=== PATIENT | male | born 1940 | race Caucasian/White ===

== ENCOUNTER → 2017-07-18 | Outpatient (CLI) | payer MEDICARE ==
[~2017-07-18] MED LIST: ASCO10006 PO; ASCO500T20 PO; ASP325T PO; ASPI-808 PO; ATOR40TA PO; CALC-760 PO; CARV25TA PO; CHOL100048 PO; FURO40TA4 PO; GLUC-153 PO; OLME40TA14 PO; OLME40TA18 PO; OMEG-109 PO; PHEN100C11 PO; POTA10CA43 PO; SIMV20TA3 PO; SPIR25TA3 PO
--- NOTE | 2017-07-18 16:17 | Diagnostic Imaging Report ---
INDICATION: Prostate cancer and pain. TECHNIQUE: After intravenous administration of 25.9 mCi technetium 99m MDP, whole body anterior and posterior scintigraphic images are obtained with spot images of the cervical and thoracic levels. FINDINGS: There is diffuse heterogeneous increased uptake throughout the axial skeleton and throughout the ribs as well as shoulder and pelvic girdles. Overall appearance is highly suggestive of widespread osseous metastatic disease. There is uptake in the kidneys with excretion into the urinary bladder. IMPRESSION: Diffuse heterogeneous uptake throughout the skeleton from cervical spine to pelvis is suggestive of widespread osseous metastatic disease. Consideration could be given to spinal MRI for assessment. Dictated by: Dictated on workstation # [id number]
== END ==
LOC: CARD 12:04
PROVIDERS: ATTEND Internal Medicine
DX: C61 Malignant neoplasm of prostate (principal)
CPT/HCPCS: 78306

== ENCOUNTER 2017-07-25 10:46 | Observation (INO) | payer MEDICARE ==
[~2017-07-25] VITALS: Ht 175.3 cm; Wt 103.4 kg
[~2017-07-25 10:46] MED LIST changes: -ASCO10006 PO; -ASPI-808 PO; -CHOL100048 PO; -OLME40TA18 PO; -OMEG-109 PO; -PHEN100C11 PO; -SIMV20TA3 PO; -SPIR25TA3 PO
--- OUTSIDE RECORDS SUMMARY | 2017-07-25 12:11 | XMS REPORT | Continuity of Care Document ---
Author Author [facility] Organization [facility] Address Unknown Phone Unavailable Allergies Active Description Code Type Severity Reaction Onset Reported/Identified Relationship to Patient Clinical Status Yes No Known Drug Allergies [id number] Drug Allergy Unknown N/A 10/26/2012 Medications There is no data. Problems Date Dx Coded Attending Type Code Diagnosis Diagnosed By 04/17/2014 VENECIA JOHNSON MD, Ot 429.3 04/17/2014 VENECIA JOHNSON MD Ot 443.9 04/17/2014 VENECIA JOHNSON MD Ot 496 04/17/2014 VENECIA JOHNSON MD Ot V72.63 04/17/2014 VENECIA JOHNSON MD Ot V72.83 03/24/2015 MEGA COURTNEY MD Ot 722.52 03/24/2015 MEGA COURTNEY MD Ot 724.03 12/25/2015 VENECIA JOHNSON MD Ot 429.3 CARDIOMEGALY 12/25/2015 VENECIA JOHNSON MD Ot 443.9 PERIPH VASCULAR DIS NOS 12/25/2015 VENECIA JOHNSON MD Ot 496 CHR AIRWAY OBSTRUCT NEC 12/25/2015 ALEX COSTELLO, VENECIA Ot V72.63 PRE-PROCEDURAL LABORATORY EXAMINATION 12/25/2015 VENECIA JOHNSON MD Ot V72.83 EXAM PRE-OPERATIVE NEC 12/28/2015 MEGA COURTNEY MD Ot G45.9 TRANSIENT CEREBRAL ISCHEMIC ATTACK, UNSP 12/28/2015 MEGA COURTNEY MD Ot G45.9 TRANSIENT CEREBRAL ISCHEMIC ATTACK, UNSP 01/19/2016 MEGA COURTNEY MD Ot G45.9 TRANSIENT CEREBRAL ISCHEMIC ATTACK, UNSP 01/26/2016 MEGA COURTNEY MD Ot G45.9 TRANSIENT CEREBRAL ISCHEMIC ATTACK, UNSP 07/10/2017 VENECIA JOHNSON MD Ot 429.3 CARDIOMEGALY 07/10/2017 VENECIA JOHNSON MD Ot 443.9 PERIPH VASCULAR DIS NOS 07/10/2017 VENECIA JOHNSON MD Ot 496 CHR AIRWAY OBSTRUCT NEC 07/10/2017 VENECIA JOHNSON MD Ot V72.63 PRE-PROCEDURAL LABORATORY EXAMINATION 07/10/2017 VENECIA JOHNSON MD Ot V72.83 EXAM PRE-OPERATIVE NEC 07/10/2017 MEGA COURTNEY MD Ot G45.9 TRANSIENT CEREBRAL ISCHEMIC ATTACK, UNSP 07/14/2017 VENECIA JOHNSON MD Ot 429.3 CARDIOMEGALY 07/14/2017 VENECIA JOHNSON MD Ot 443.9 PERIPH VASCULAR DIS NOS 07/14/2017 VENECIA JOHNSON MD Ot 496 CHR AIRWAY OBSTRUCT NEC 07/14/2017 VENECIA JOHNSON MD Ot V72.63 PRE-PROCEDURAL LABORATORY EXAMINATION 07/14/2017 VENECIA JOHNSON MD Ot V72.83 EXAM PRE-OPERATIVE NEC 07/14/2017 MEGA COURTNEY MD Ot G45.9 TRANSIENT CEREBRAL ISCHEMIC ATTACK, UNSP 07/19/2017 MEGA COURTNEY MD Ot C61 MALIGNANT NEOPLASM OF PROSTATE 07/20/2017 VENECIA JOHNSON MD Ot 429.3 CARDIOMEGALY 07/20/2017 VENECIA JOHNSON MD Ot 443.9 PERIPH VASCULAR DIS NOS 07/20/2017 VENECIA JOHNSON MD Ot 496 CHR AIRWAY OBSTRUCT NEC 07/20/2017 VENECIA JOHNSON MD Ot V72.63 PRE-PROCEDURAL LABORATORY EXAMINATION 07/20/2017 VENECIA JOHNSON MD Ot V72.83 EXAM PRE-OPERATIVE NEC 07/24/2017 MEGA COURTNEY MD Ot C61 MALIGNANT NEOPLASM OF PROSTATE Procedures There is no data. Results There is no data. Encounters ACCT No. Visit Date/Time Discharge Status Pt. Type Provider Facility Loc./Unit Complaint [id number] 07/18/2017 12:04:00 07/18/2017 23:59:59 CLS Outpatient MEGA COURTNEY MD [facility] CARD ELEVATED ALKFOS [id number] 12/25/2015 13:07:00 12/25/2015 23:59:59 CLS Outpatient MEGA COURTNEY MD [facility] RAD TIA [id number] 12/04/2013 11:57:00 12/04/2013 23:59:59 CLS Outpatient VENECIA JOHNSON MD [facility] RAD PERIPHERAL VASCULAR DISEASE,PREOP [id number] 10/25/2012 09:21:00 10/25/2012 14:00:00 DIS Outpatient [id number] 10/22/2012 13:14:00 10/22/2012 23:59:59 CLS Outpatient MEGA COURTNEY MD [facility] RAD [id number] 09/06/2012 08:04:00 09/06/2012 23:59:59 CLS Outpatient [id number] 08/15/2017 11:54:00 PEN Preadmit MEGA COURTNEY MD [facility] REHAB OLD RCVA W L LE WEAKNESS; DECONDITIONING AND FALLS
[2017-07-25 13:31] LABS: HEMOGLOBIN 12.9 G/DL (13.3-17.7); MEAN PLATELET VOLUME 9.7 FL (7.4-10.4); RED BLOOD COUNT 4.45 10^6/uL (4.35-5.85); RED CELL DISTRIBUTION WIDTH 15.3 % (10.0-14.5); WHITE BLOOD COUNT 5.2 10^3/uL (4.3-11.0)
[2017-07-25 13:51] LABS: ALANINE AMINOTRANSFERASE 11 U/L (0-55); ALBUMIN 3.9 GM/DL (3.2-4.5); ALKALINE PHOSPHATASE 577 U/L (40-136); BILIRUBIN,TOTAL 0.3 MG/DL (0.1-1.0); BUN/CREATININE RATIO 42; CALCIUM 9.1 MG/DL (8.5-10.1); CARBON DIOXIDE 23 MMOL/L (21-32); CHLORIDE 107 MMOL/L (98-107); CREATININE SERUM 0.95 MG/DL (0.60-1.30); GFR ESTIMATED > 60; GLUCOSE 117 MG/DL (70-105); POTASSIUM 5.1 MMOL/L (3.6-5.0); SODIUM 139 MMOL/L (135-145); TOTAL PROTEIN 6.5 GM/DL (6.4-8.2)
--- NOTE | 2017-07-25 13:57 | History & Physical-Hospitalist ---
History of Present Illness HPI/Chief Complaint Pt is a 76yoCm with a PMH of CAD s/p CABG, Prostate cancer with recent diagnosis of bony mets, and newly diagnosed seizure disorder who presented for direct admission due to worsening generalized weakness. He states that this weakness started about 1 month ago and has continued to worsen. He is normally very [place] despite his baseline left sided deficit from a previous CVA but has been having difficulty keeping up. He was actually seen in the [place] ER for this and was transferred to [place] for cardiac evaluation. He had a cardiac cath during that admission and was told his cath was clean and was discharged home. He has continued to worsen and developed seizures. He was started on Dilantin by his PC Dr Angel. His last seizure was Monday. He states it took him 1.5 hours to get dressed this morning prompting him to call his PCP. He was direct admitted for further evaluation and MRI brain was ordered. Source: patient Exam Limitations: no limitations Date Seen 07/25/17 Time Seen by Provider: 13:52 Attending Physician Eitan Angel MD PCP Eitan Angel MD Referring Physician Date of Admission July 25, 2017 at 12:06 Home Medications & Allergies Home Medications Reviewed patient Home Medication Reconciliation performed by pharmacy medication reconciliations dental technician instructor and/or nursing. Patients Allergies have been reviewed. Allergies Allergies Coded Allergies lisinopril (Verified Allergy, Severe, tongue swelling, 07/25/17) Past Tjhreqx-Jlbhis-Zbbxdx Hx Past Med/Social Hx: Reviewed Nursing Past Med/Soc Hx Patient Social History Marrital Status: Employed/Student: retired Smoking Status: Former Smoker (q in 2007) Type Used: Cigarettes Recent Foreign Travel: No Contact w/other who traveled: No Past Medical History Surgeries: Abdominal, CABG Cardiac: Cardiomyopathy, Coronary Artery Disease, Hypertension Cancer: Prostate, Bone Family History Heart Disease, Cancer Review of Systems Constitutional: No chills, No fever; weakness EENTM: No blurred vision, No double vision Respiratory: no symptoms reported Cardiovascular: no symptoms reported Gastrointestinal: no symptoms reported Genitourinary: no symptoms reported Musculoskeletal: muscle stiffness, muscle weakness Skin: no symptoms reported Psychiatric/Neurological: No Symptoms Reported Physical Exam Physical Exam Vital Signs Capillary Refill : General Appearance: No Apparent Distress, WD/WN Respiratory: Lungs Clear, No Respiratory Distress Cardiovascular: Regular Rate, Rhythm, No Murmur Gastrointestinal: Normal Bowel Sounds, Non Tender, Soft Extremity: Normal Capillary Refill, No Calf Tenderness, No Pedal Edema Neurologic/Psychiatric: Alert, Oriented x3, Other (bilateral extremity weakness L>R at baseline, no sensory deficit) Results Results/Procedures Labs Laboratory Tests 07/25/17 13:18 Patient resulted labs reviewed. Assessment/Plan Admission Diagnosis Generalized weakness Admission Status: Observation Diagnosis/Problems Diagnosis/Problems (1) Generalized weakness Status: Acute Assessment & Plan: New onset in last month PT/OT consulted MRI brain ordered- awaiting results Consider spine MRI (2) Metastasis to bone Status: Acute Assessment & Plan: Newly diagnosed on 07/18 History of prostate cancer- PSA ordered MRI brain ordered (3) CAD (coronary artery disease) Status: Chronic Assessment & Plan: s/p CABG in 2007 Recent cath done in [place] Will request records along with echo Qualifiers: Coronary Disease-Associated Artery/Lesion type: bypass graft [place] vs. transplanted heart: [place] heart Associated angina: without angina Qualified Codes: I25.810 - Atherosclerosis of coronary artery bypass graft(s) without angina pectoris (4) Seizure disorder Assessment & Plan: Check dilantin level, resume if normal LOUISE SMITH MD July 25, 2017 1:56 pm
--- NOTE | 2017-07-25 14:31 | Physical Therapy Evaluation ---
PT Evaluation-General Medical Diagnosis Admission Date July 25, 2017 at 12:06 Medical Diagnosis: left hemiparesis/focal seizures Onset Date: July 23, 2017 Therapy Diagnosis Therapy Diagnosis: generalized weakness/debility Height/Weight Height (Feet): 5 Height (Inches): 9.00 Weight (Pounds): 228 Weight (Ounces): 1.0 Precautions Precautions/Isolations: Standard Precautions Weight Bear Status Right Lower Extremity: Right Weight Bearing/Tolerated Left Lower Extremity: Left Weight Bearing/Tolerated Referral Physician: Anup Reason for Referral: Evaluation/Treatment Medical History Pertinent Medical History: CABG, CAD, CVA (2010), HTN, [place] Additional Medical History prostate cancer with recent diagnosis with mets to bone Current History patient has had progressive weakness x 1 month requiring use of assistive device. New onset of seizures which has increase weakness and patient has become unable to care for self Reviewed History: Yes Social History Home: Multilevel Current Living Status: Spouse Entry Into Home: Stairs With Railing PT Steps Into Home: 5 PT Steps Inside Home: 14 Prior/Core FIM Prior Level of Function Functional [place] Measure 0=Not Assessed/NA 4=Minimal Assistance 1=Total Assistance 5=Supervision or Setup 2=Maximal Assistance 6=Modified [place] 3=Moderate Assistance 7=Complete [place] Bed Mobility: 5 Transfers (B,C,W/C) (FIM): 5 Gait: 1 only able to ambulate short distances due to progressive weakness with left side more involved from previous CVA/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 PT Evaluation-Current Subjective Patient agrees to PT. He reports his left side is "giving him fits." Pain Numeric Pain Scale: 7 Location: Lower Location Body Site: Back Pain Description: Ache, Acute (from seizures per patient report) Objective Patient Orientation: Normal For Age Problem Solving: Fair ROM/Strength ROM Lower Extremities bilateral LE WNL Strength Lower Extremities right knee flexion/extension 4+/5; hip flexion 4+/5; DF/PF 4+/5 left knee flexion/extension 3-/5; hip flexion 2/5; DF/PF 2/5 Integumentary/Posture Integumentary refer to nursing notes Bowel Incontinence: No Bladder Incontinence: No Posture WFL Neuromuscular (Tone, Coordination, Reflexes) diminished coordination left LE/UE/sensation intact Sensory Vision: Functional Hearing: Functional Sensation Right Lower Extremit: Intact Sensation Left Lower Extremity: Intact Transfers Functional [place] Measure 0=Not Assessed/NA 4=Minimal Assistance 1=Total Assistance 5=Supervision or Setup 2=Maximal Assistance 6=Modified [place] 3=Moderate Assistance 7=Complete [place] Transfers (B, C, W/C) (FIM): 4 Scootin Rollin Supine to/from Sit: 4 Sit to/from Stand: 4 Gait Mode of Locomotion: Walk Anticipated Mode of Locomotion: Walk Gait (FIM): 1 Distance (FIM): 1=up to 49 ft Distance: 45' Gait Level of Assist: 3 Gait Persons Needed: 1 Gait Assistive Device: FWW Comments/Gait Description left LE lag with inconsistent foot clearance due to weakness/PT assistance for weight shifting to right to advance left LE Balance Sitting Static: Normal Sitting Dynamic: Normal Standing Static: Fair Standing Dynamic: Fair Assessment/Needs 76 y.o. male, will benefit from skilled PT to address functional strength and mobility to improve current LOF and to safely return to home with spouse at maximum LOF. Patient has significant left LE weakness and increase back pain due to seizures. Rehab Potential: Fair PT Light Bulb Tester Goals Light Bulb Tester Goals PT Correction Goals Time Frame: Aug 18, 2017 Transfers (B,C,W/C) (FIM): 5 Gait (FIM): 5 Gait distance (FIM): 3=150 ft Distance: 200' Gait Level of Assist: 5 Gait Assistive Device: FWW Stairs (FIM): 5 # of Steps: 14 Stairs Level Of Assist: 5 PT Plan Problem List Problem List: Activity Tolerance, Functional Strength, Balance, Gait, Bed Mobility Treatment/Plan Treatment Plan: Continue Plan of Care Treatment Plan: Bed Mobility, Education, Functional Activity Kati, Functional Strength, Group Therapy, Gait, Safety, Therapeutic Exercise, Transfers Treatment Duration: Aug 18, 2017 Frequency: At least 5 of 7 days/Wk (IRF) Estimated Hrs Per Day: 1.5 hours per day Patient and/or Family Agrees t: Yes Safety Risks/Education Patient Education: Gait Training Teaching Recipient: Patient Teaching Methods: Demonstration, Discussion Response to Teaching: Verbalize Understanding, Return Demonstration (with assistance) Discharge Recommendations Therapy D/C Recommendations: Acute Rehab Time/GCodes Time In: 1345 Time Out: 1415 Total Billed Treatment Time: 30 [facility] AND[facility] HORNER PT July 25, 2017 14:31
[2017-07-25] MEDS ORDERED: ANTACID SUSP 30 ML UDC (MYLANTA) PO PRN (14:45)
[2017-07-25] MEDS ORDERED: ONDANSETRON 4 MG/2 ML (SDV) Z0FRAN IV PRN (14:45)
[2017-07-25] MEDS ORDERED: ACETAMINOPHEN 500 MG TAB (TYLENOL) PO PRN (14:45)
[2017-07-25] MEDS ORDERED: MILK OF MAGNESIA 400 MG/5 ML 30 ML UDC PO PRN (14:45)
[2017-07-25] MEDS ORDERED: CATHETER FLUSH 10 ML SYR IV PRN (15:00)
[2017-07-25] MEDS ORDERED: GADOBUTROL 10 MMOL/10 ML (GADAVIST) VIAL IV ONE (15:00)
[2017-07-25] MEDS ORDERED: ACETAMINOPHEN 325 MG TABLET/CAPLET (TYLENOL) PO PRN (15:00)
--- NOTE | 2017-07-25 15:52 | Occupational Therapy Eval ---
OT Evaluation-General/PLF Medical Diagnosis Admission Date July 25, 2017 at 12:06 Medical Diagnosis: left hemiparesis/focal seizures Onset Date: July 23, 2017 Therapy Diagnosis Therapy Diagnosis: decreased self care skills Height/Weight Height (Feet): 5 Height (Inches): 9.00 Weight (Pounds): 228 Weight (Ounces): 1.0 Precautions Precautions/Isolations: Standard Precautions Referral Physician: Anup Medical History Pertinent Medical History: CABG, CAD, CVA (2010), HTN, [place] Additional Medical History prostate cancer with bony mets Current History Pt has had progressive weakness and onset of seizures Social History Home: Multilevel (bedroom is on 2nd level) Current Living Status: Spouse Entry Into Home: Stairs With Railing Steps Into Home: 5 Steps Inside Home: 14 ADL-Prior Level of Function ADL PLOF Comments Pt states he is normally able to complete basic self care skills, but recently has required increased time. States it took him 1.5 hrs to dress this morning. Ambulates only short distances. Has had frequent falls last 2 months. Uses 4WW outside. DME/Equipment: Shower Drive Self: Yes OT Current Status Subjective Pt sitting in chair, agrees to therapy. Pt reports 4/10 "muscle pain" in back. Mental Status/Objective Patient Orientation: Person, Place, Situation Current Glasses/Contacts: Yes Hearing Aids: No Dentures/Partials: Yes Hand Dominance: Left Upper Extremity ROM Right UE grossly WFL Left UE: Limited at shoulder secondary to prior CVA Upper Extremity Coordination Impaired left UE Upper Extremity Sensation Pt states he's had numbness in right hand for ~6 weeks. ADL-Treatment ADL-Current Pt participated in UE assessment while seated. Pt sit to stand with minimal assistance. Requires minimal assistance for transfers using FWW. Pt has difficulty reaching socks to doff/don. Pt states he has been able to feed himself without assistance. Education provided regarding role of OT and plan of care. Pt states understanding of education and is in agreement with plan. Pt sitting in chair with needs met and RN present after session. Functional [place] Measure 0=Not Assessed/NA 4=Minimal Assistance 1=Total Assistance 5=Supervision or Setup 2=Maximal Assistance 6=Modified [place] 3=Moderate Assistance 7=Complete IndependenceIRFPAI Quality Coding Scale 6 Independent with activity with or without an assistive device 5 Patient requires set up or clean up by helper. Patient completes activity by themselves 4 Supervision or touching assist (CGA). Barker provide cues , steadying assist 3 The helper provides less than half the effort to complete the activity 2 The helper provides more than half the effort to complete the activity 1 Dependent. The helper does all the effort to complete an activity 7 Patient refused to complete or attempt activity 9 The patient did not perform the activity before the current illness or injury 88 Not attempted due to Medical conditions or safety concerns Eating (FIM): 5 (by report) Toilet/Commode Transfer (FIM): 4 Education OT Patient Education: Rehab process Teaching Recipient: Patient Teaching Methods: Discussion Response to Teaching: Verbalize Understanding OT Short Term Goals Short Term Goals 1=Demonstrate adherence to instructed precautions during ADL tasks. 2=Patient will verbalize/demonstrate understanding of assistive devices/ modifications for ADL. 3=Patient will improve strength/tolerance for activity to enable patient to perform ADL's. OT Nursing Home Goals Silvering Applicator Goals Time Frame: Aug 15, 2017 Eating (FIM): 6 Grooming(FIM): 6 Upper Body Dressing(FIM): 6 Lower Body Dressing(FIM): 5 Toileting(FIM): 5 Toilet/Commode Transfer(FIM): 6 Additional Goals: 1-Demonstrate ADL Tasks, 2-Verbalize Understanding, 3- ImproveStrength/Kati 1=Demonstrate adherence to instructed precautions during ADL tasks. 2=Patient will verbalize/demonstrate understanding of assistive devices/ modifications for ADL. 3=Patient will improve strength/tolerance for activity to enable patient to perform ADL's. OT Education/Plan Problem List/Assessment Assessment: Decreased Activ Tolerance, Decreased UE Strength, Dependent Transfers, Impaired Coordination, Impaired Funct Balance, Impaired Self-Care Skills Pt to benefit from skilled OT intervention for ADL training, transfers, strengthening, and safety education to increase level of function and allow safe discharge plan. Discharge Recommendations Plan/Recommendations: Continue POC Treatment Plan/Plan of Care Treatment,Training & Education: Yes Patient would benefit from OT for education, treatment and training to promote independence in ADL's, mobility, safety and/or upper extremity function for ADL' s. Plan of Care: ADL Retraining, Functional Mobility, UE Funct Exercise/Act Treatment Duration: Aug 15, 2017 Frequency: 5 times per week Estimated Hrs Per Day: .25 hour per day Agreement: Yes Rehab Potential: Fair Time/GCodes Start Time: 15:21 Stop Time: 15:44 Total Time Billed (hr/min): 23 Billed Treatment Time 1 visit, DEREK(23minutes) MIGUEL CASTANO OT July 25, 2017 15:52
[2017-07-25 16:00] VITALS: BP 102/56
--- NOTE | 2017-07-25 16:08 | Diagnostic Imaging Report ---
PROCEDURE: MR imaging of the brain with and without contrast. TECHNIQUE: Multiplanar, multisequence MR imaging of the brain was performed with and without contrast. INDICATION: Seizures. COMPARISON: No prior MRI brain study is available for comparison. FINDINGS: The study is significantly compromised due to patient motion. Patient had difficulty holding still during the exam. The ventricles and sulci are prominent, consistent with the patient's age. No diffusion restriction is identified to suggest acute ischemia. There is T2 and FLAIR signal identified in the right frontal and parietal lobes in the middle cerebral artery territory with associated volume loss present, consistent with an old infarct. There is a large region of abnormal signal involving the high right posterior parietal lobe parafalcine location. This demonstrates increased T2 and FLAIR signal and measures approximately 3.8 cm AP x 2.9 cm transverse. Gallegos-white matter differentiation at this location is obscured. There appears to be significant cortical thickening present. There is a small region of enhancement noted along the superior aspect of this signal. No restricted diffusion is seen. The normal expected flow-voids within the carotid siphons are seen. No other regions of abnormal contrast enhancement are seen apart from a small probable venous angioma in the right centrum semiovale. Corpus callosum is unremarkable. The sella and parasellar structures are unremarkable. IMPRESSION: 1. 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 2. Mass-like signal abnormality identified in the high right posterior parietal lobe parafalcine location with minimal associated enhancement. 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 Minimal enhancement may suggest a low-grade tumor. Metastatic lesion is less likely. No other abnormalities are seen. No acute intracranial hemorrhage is detected. Dictated by: Dictated on workstation # [id number]
[2017-07-25] MEDS ORDERED: PHEN100C11 PO ×2 (16:59)
[2017-07-25] MEDS ORDERED: ASCO10006 PO (16:59)
[2017-07-25] MEDS ORDERED: SIMV20TA3 PO (16:59)
[2017-07-25] MEDS ORDERED: ASPI-808 PO (16:59)
[2017-07-25] MEDS ORDERED: CHOL100048 PO (16:59)
[2017-07-25] MEDS ORDERED: CARV25TA PO (16:59)
[2017-07-25] MEDS ORDERED: OLME40TA18 PO (16:59)
[2017-07-25] MEDS ORDERED: SPIR25TA3 PO (16:59)
[2017-07-25] MEDS ORDERED: OMEG-109 PO (16:59)
[2017-07-25 20:00] VITALS: BP 98/53
[2017-07-25] MEDS: CATHETER FLUSH 10 ML SYR IV SCH (20:45)
[2017-07-26] VITALS: BP 105/57
[2017-07-26 04:00] VITALS: BP 133/69
[2017-07-26] MEDS: CATHETER FLUSH 10 ML SYR IV SCH ×2 (06:03→14:31)
[2017-07-26] MEDS ORDERED: CARVEDILOL 12.5 MG (COREG) TABLET ONE (08:36)
[2017-07-26] MEDS ORDERED: IRBESARTAN 150 MG (AVAPRO) TAB ONE (08:37)
[2017-07-26] MEDS ORDERED: PHEN100C11 PO (08:41)
--- NOTE | 2017-07-26 08:50 | Discharge Summary-Hospitalist ---
Diagnosis/Chief Complaint Date of Admission July 25, 2017 at 12:06 Date of Discharge Admission Diagnosis Generalized weakness Discharge Diagnosis (1) Generalized weakness Status: Acute Assessment & Plan: New onset in last month PT/OT consulted MRI brain ordered- awaiting results Consider spine MRI (2) Metastasis to bone Status: Acute Assessment & Plan: Newly diagnosed on 07/18 History of prostate cancer- PSA ordered MRI brain ordered (3) CAD (coronary artery disease) Status: Chronic Assessment & Plan: s/p CABG in 2007 Recent cath done in [place] Will request records along with echo (4) Seizure disorder Assessment & Plan: Check dilantin level, resume if normal Discharge Summary Discharge Physical Exam Allergies: Coded Allergies: lisinopril (Verified Allergy, Severe, tongue swelling, 07/25/17) Vitals & I&Os Vital Signs Date Time Temp Pulse Resp B/P (MAP) Pulse Ox O2 Delivery O2 Flow Rate FiO2 07/26/17 04:00 98.7 76 18 133/69 (90) 95 Room Air General Appearance: Alert, Oriented X3, Cooperative, No Acute Distress Respiratory: Clear to Auscultation Cardiovascular: Regular Rate, Normal S1, Normal S2 Neuro: Normal Speech, Cranial Nerves 3-12 NL, Other (Left lower extremity hemiparesis no other focal findings noted) Hospital Course HPI/Chief Complaint Pt is a 76yoCm with a PMH of CAD s/p CABG, Prostate cancer with recent diagnosis of bony mets, and newly diagnosed seizure disorder who presented for direct admission due to worsening generalized weakness. He states that this weakness started about 1 month ago and has continued to worsen. [place] is [place] despite his baseline left sided deficit from a previous CVA but has been having difficulty keeping up. He was actually seen in the [place] ER for this and was transferred to [place] for cardiac evaluation. He had a cardiac cath during that admission and was told his cath was clean and was discharged home. He has continued to worsen and developed seizures. He was started on Dilantin by his PC Dr Courtney. His last seizure was Monday. He states it took him 1.5 hours to get dressed this morning prompting him to call his PCP. He was direct admitted for further evaluation and MRI brain was ordered. MRI of the brain revealed a 2.9 x 3.8 cm right posterior parietal tumor with features the radiologist felt were compatible with primary possibly not high- grade. His PSA returned at over 300 confirming that his highly positive bone scan is compatible with prostate cancer metastasis. He had no seizures noted in his Dilantin level was up to 12.8. Last focal seizure per the patient occurred on Monday. Left lower extremity remained weak with 3+ strength with no other focal neurologic findings being noted. We are in the process of obtaining transferred to [place] for neurosurgical consultation neurology consultation in regards to his focal seizure disorder and will likely need oncology as well as the patient otherwise it be a reasonable candidate for hormonal therapy for prostate cancer widely metastatic to bone. Labs (last 24 hrs) Laboratory Tests 07/25/17 13:18: White Blood Count 5.2, Red Blood Count 4.45, Hemoglobin 12.9L, Hematocrit 39L, Mean Corpuscular Volume 88, Mean Corpuscular Hemoglobin 29, Mean Corpuscular Hemoglobin Concent 33, Red Cell Distribution Width 15.3H, Platelet Count 193, Mean Platelet Volume 9.7, Sodium Level 139, Potassium Level 5.1H, Chloride Level 107, Carbon Dioxide Level 23, Anion Gap 9, Blood Urea Nitrogen 40H, Creatinine 0.95, Estimat Glomerular Filtration Rate > 60, BUN/Creatinine Ratio 42, Glucose Level 117H, Calcium Level 9.1, Total Bilirubin 0.3, Aspartate Amino Transf (AST/SGOT) 17, Alanine Aminotransferase (ALT/SGPT) 11, Alkaline Phosphatase 577H, Total Protein 6.5, Albumin 3.9, Prostate Specific Antigen 393.13H, Phenytoin (Dilantin) Level 12.2 Patient resulted labs reviewed. Discussion & Recommendations Discharge Planning: >30 minutes discharge planning Discharge Home Medications: Active Scripts Active Phenytoin Sodium Extended 100 Mg Capsule 300 Mg PO Q12HR 60 Days Reported Fish Oil 1,200 mg Softgel ([place]-3 Fatty Acids/Fish Oil) 1 Each Capsule 1,200 Mg PO DAILY Vitamin D (Cholecalciferol (Vitamin D3)) 1,000 Unit Capsule 1,000 Unit PO DAILY Simvastatin 20 Mg Tablet 10 Mg PO HS TAKES 1/2 OF A (20 MG) TABLET Phenytoin Sodium Extended 100 Mg Capsule 300 Mg PO HS TAKES 3 (100 MG) CAPSULES Spironolactone 25 Mg Tablet 25 Mg PO DAILY Olmesartan Medoxomil 40 Mg Tablet 40 Mg PO DAILY Carvedilol 25 Mg Tablet 25 Mg PO BID Phenytoin Sodium Extended 100 Mg Capsule 200 Mg PO DAILY TAKES 2 (100 MG) CAPSULES Vitamin C (Ascorbic Acid) 1,000 Mg Tablet 1,000 Mg PO BID Aspirin 325 Mg Tablet 325 Mg PO BID Instructions to patient/family Please see electronic discharge instructions given to patient. Clinical Quality Measures DVT/VTE Risk/Contraindication: Risk Factor Score Per Nursin RFS Level Per Nursing on Admit: 3=High Problem Qualifiers (1) CAD (coronary artery disease): Coronary Disease-Associated Artery/Lesion type: bypass graft [place] vs. transplanted heart: [place] heart Associated angina: without angina Qualified Codes: I25.810 - Atherosclerosis of coronary artery bypass graft(s) without angina pectoris MEGA COURTNEY MD July 26, 2017 08:50
[2017-07-26 08:58] VITALS: BP 101/51
[2017-07-26] MEDS ORDERED: CARVEDILOL 12.5 MG (COREG) TABLET PO SCH (09:00)
[2017-07-26] MEDS ORDERED: PHENYTOIN 100 MG (DILANTIN) CAP PO SCH (09:00)
[2017-07-26] MEDS ORDERED: IRBESARTAN 150 MG (AVAPRO) TAB PO SCH (09:00)
[2017-07-26 12:37] VITALS: BP 85/52
[2017-07-26] MEDS ORDERED: SIMvastatin 10 MG (ZOCOR) TAB PO SCH (21:00)
--- OUTSIDE RECORDS SUMMARY | 2017-07-27 12:33 | XMS REPORT | Continuity of Care Document ---
Author Author [facility] Organization [facility] Address Unknown Phone Unavailable Allergies Active Description Code Type Severity Reaction Onset Reported/Identified Relationship to Patient Clinical Status Yes No Known Drug Allergies [id number] Drug Allergy Unknown N/A 10/26/2012 Medications There [...] PERIPH VASCULAR DIS NOS 07/20/2017 VENECIA JOHNSON MD, Ot 496 CHR AIRWAY OBSTRUCT NEC 07/20/2017 VENECIA JOHNSON MD Ot V72.63 PRE-PROCEDURAL LABORATORY EXAMINATION 07/20/2017 VENECIA JOHNSON MD Ot V72.83 EXAM PRE-OPERATIVE NEC 07/24/2017 MEGA COURTNEY MD Ot C61 MALIGNANT NEOPLASM OF PROSTATE Procedures There is no data. Results Test Result Range Automated blood complete blood count (hemogram) panel - 07/25/17 13:18 Blood leukocytes automated count (number/volume) 5.2 10*3/uL 4.3-11.0 Blood erythrocytes automated count (number/volume) 4.45 10*6/uL 4.35-5.85 Venous blood hemoglobin measurement (mass/volume) 12.9 g/dL 13.3-17.7 Blood hematocrit (volume fraction) 39 % 40-54 Automated erythrocyte mean corpuscular volume 88 [foz_us] 80-99 Automated erythrocyte mean corpuscular hemoglobin (mass per erythrocyte) 29 pg 25-34 Automated erythrocyte mean corpuscular hemoglobin concentration measurement ( mass/volume) 33 g/dL 32-36 Automated erythrocyte distribution width ratio 15.3 % 10.0-14.5 Automated blood platelet count (count/volume) 193 10*3/uL 130-400 Automated blood platelet mean volume measurement 9.7 [foz_us] 7.4-10.4 Comprehensive metabolic panel - 07/25/17 13:18 Serum or plasma sodium measurement (moles/volume) 139 mmol/L 135-145 Serum or plasma potassium measurement (moles/volume) 5.1 mmol/L 3.6-5.0 Serum or plasma chloride measurement (moles/volume) 107 mmol/L 98-107 Carbon dioxide 23 mmol/L 21-32 Serum or plasma anion gap determination (moles/volume) 9 mmol/L 5-14 Serum or plasma urea nitrogen measurement (mass/volume) 40 mg/dL 7-18 Serum or plasma creatinine measurement (mass/volume) 0.95 mg/dL 0.60-1.30 Serum or plasma urea nitrogen/creatinine mass ratio 42 NRG Serum or plasma creatinine measurement with calculation of estimated glomerular filtration rate > NRG Serum or plasma glucose measurement (mass/volume) 117 mg/dL 70-105 Serum or plasma calcium measurement (mass/volume) 9.1 mg/dL 8.5-10.1 Serum or plasma total bilirubin measurement (mass/volume) 0.3 mg/dL 0.1-1.0 Serum or plasma alkaline phosphatase measurement (enzymatic activity/volume) 577 U/L 40-136 Serum or plasma aspartate aminotransferase measurement (enzymatic activity/ volume) 17 U/L 5-34 Serum or plasma alanine aminotransferase measurement (enzymatic activity/volume ) 11 U/L 0-55 Serum or plasma protein measurement (mass/volume) 6.5 g/dL 6.4-8.2 Serum or plasma albumin measurement (mass/volume) 3.9 g/dL 3.2-4.5 Semen free prostate specific antigen (PSA) measurement (units/volume) - 13:18 Prostate specific ag [mass/volume] in serum or plasma 393.13 % 0.00-4.00 DILANTIN (PHENYTOIN) - 07/25/17 13:18 DILANTIN PHEN 12.2 % 10.0-20.0 Encounters ACCT No. Visit Date/Time Discharge Status Pt. Type Provider Facility Loc./Unit Complaint [id number] 07/18/2017 12:04:00 07/18/2017 23:59:59 CLS Outpatient MEGA COURTNEY MD [facility] CARD ELEVATED ALKFOS [id number] 12/25/2015 13:07:00 12/25/2015 23:59:59 CLS Outpatient MEGA COURTNEY MD [facility] RAD TIA [id number] 12/04/2013 11:57:00 12/04/2013 23:59:59 CLS Outpatient VENECIA JOHNSON MD [facility] RAD PERIPHERAL VASCULAR DISEASE,PREOP [id number] 10/25/2012 09:21:00 10/25/2012 14:00:00 DIS Outpatient [id number] 10/22/2012 13:14:00 10/22/2012 23:59:59 CLS Outpatient MEGA COURTNEY MD [facility] RAD [id number] 09/06/2012 08:04:00 09/06/2012 23:59:59 CLS Outpatient [id number] 08/15/2017 11:54:00 PEN Preadmit MEGA COURTNEY MD [facility] REHAB OLD RCVA W L LE WEAKNESS; DECONDITIONING AND FALLS [id number] 07/25/2017 13:36:00 Document Registration
--- NOTE | 2017-08-11 13:35 | Occ Therapy Progress Note ---
Therapy Progress Note For 07-25-17 G codes based on FIM scores and ADl narrative Self cur CK Self goal CI Self DC ADAM UNDERWOOD OT Aug 11, 2017 13:35
== END 2017-07-26 16:19 | disposition short-term general hospital (02) ==
LOC: UNDOADMIN 12:06 → 4TH 12:06 → EDSTATUS 12:28 → 4TH 12:30 → UNDODISIN 07-26 16:19
PROVIDERS: ADMIT Internal Medicine; ATTEND Internal Medicine
DX: C79.51 Secondary malignant neoplasm of bone (principal); I25.810 Atherosclerosis of coronary artery bypass graft(s) without angina pectoris; I42.9 Cardiomyopathy, unspecified; I69.354 Hemiplegia and hemiparesis following cerebral infarction affecting left non-dominant side; R53.1 Weakness; G40.909 Epilepsy, unspecified, not intractable, without status epilepticus; Z66 Do not resuscitate; C61 Malignant neoplasm of prostate; D49.6 Neoplasm of unspecified behavior of brain; I10 Essential (primary) hypertension; Z95.1 Presence of aortocoronary bypass graft; Z87.891 Personal history of nicotine dependence
CPT/HCPCS: 36415; 70553; 80053; 80185; 84153; 85027; 99211; G0378

== ENCOUNTER 2017-08-14 00:45 | Emergency (ER) | payer MEDICARE ==
[~2017-08-14] VITALS: Ht 180.3 cm; Wt 113.4 kg
[~2017-08-14 00:45] MED LIST changes: +ASCO10006 PO; +ASPI-808 PO; +CHOL100048 PO; +OLME40TA18 PO; +OMEG-109 PO; +PHEN100C11 PO; +SIMV20TA3 PO; +SPIR25TA3 PO
--- OUTSIDE RECORDS SUMMARY | 2017-08-14 00:49 | XMS REPORT | Continuity of Care Document ---
Author Author [facility] Organization [facility] Address Unknown Phone Unavailable Allergies Active Description Code Type Severity Reaction Onset Reported/Identified Relationship to Patient Clinical Status Yes No Known Drug Allergies [id number] Drug Allergy Unknown N/A 10/26/2012 Yes lisinopril [id number] Drug Allergy Severe tongue swelling 07/25/2017 Yes lisinopril [id number] Drug Allergy Unknown N/A 07/25/2017 Medications There is no data. Problems Date Dx Coded Attending Type Code Diagnosis Diagnosed By 04/17/2014 ALEX COSTELLO, VENECIA Ot 429.3 04/17/2014 ALEX COSTELLO, VENECIA Ot 443.9 04/17/2014 ALEX COSTELLO, VENECIA Ot 496 04/17/2014 ALEX COSTELLO, VENECIA Ot V72.63 04/17/2014 ALEX COSTELLO, VENECIA Ot V72.83 03/24/2015 SHERWIN COSTELLO, MEGA Orozco Ot 722.52 03/24/2015 SHERWIN COSTELLO, MEGA Orozco Ot 724.03 12/25/2015 ALEX COSTELLO, VENECIA Ot 429.3 CARDIOMEGALY 12/25/2015 ALEX COSTELLO, VENECIA Ot 443.9 PERIPH VASCULAR DIS NOS 12/25/2015 ALEX COSTELLO, VENECIA Ot 496 CHR AIRWAY OBSTRUCT NEC 12/25/2015 ALEX COSTELLO, VENECIA Ot V72.63 PRE-PROCEDURAL LABORATORY EXAMINATION 12/25/2015 ALEX COSTELLO, VENECIA Ot V72.83 EXAM PRE-OPERATIVE NEC 12/28/2015 SHERWIN COSTELLO, MEGA Orozco Ot G45.9 TRANSIENT CEREBRAL ISCHEMIC ATTACK, UNSP 12/28/2015 SHERWIN COSTELLO, MEGA Orozco Ot G45.9 TRANSIENT CEREBRAL ISCHEMIC ATTACK, UNSP 01/19/2016 SHERWIN COSTELLO, MEGA Orozco Ot G45.9 TRANSIENT CEREBRAL ISCHEMIC ATTACK, UNSP 01/26/2016 SHERWIN COSTELLO, MEGA Orozco Ot G45.9 TRANSIENT CEREBRAL ISCHEMIC ATTACK, UNSP [...] G45.9 TRANSIENT CEREBRAL ISCHEMIC ATTACK, UNSP 07/19/2017 SHERWIN COSTELLO, MEGA Orozco Ot C61 MALIGNANT NEOPLASM OF PROSTATE 07/20/2017 VENECIA JOHNSON MD Ot 429.3 CARDIOMEGALY 07/20/2017 VENECIA JOHNSON MD Ot 443.9 PERIPH VASCULAR DIS NOS 07/20/2017 VENECIA JOHNSON MD Ot 496 CHR AIRWAY OBSTRUCT NEC 07/20/2017 VENECIA JOHNSON MD Ot V72.63 PRE-PROCEDURAL LABORATORY EXAMINATION 07/20/2017 VENECIA JOHNSON MD Ot V72.83 EXAM PRE-OPERATIVE NEC 07/24/2017 MEGA COURTNEY MD Ot C61 MALIGNANT NEOPLASM OF PROSTATE 07/25/2017 VENECIA JOHNSON MD Ot 429.3 CARDIOMEGALY 07/25/2017 VENECIA JOHNSON MD Ot 443.9 PERIPH VASCULAR DIS NOS 07/25/2017 VENECIA JOHNSON MD Ot 496 CHR AIRWAY OBSTRUCT NEC 07/25/2017 VENECIA JOHNSON MD Ot V72.63 PRE-PROCEDURAL LABORATORY EXAMINATION 07/25/2017 VENECIA JOHNSON MD Ot V72.83 EXAM PRE-OPERATIVE NEC 07/26/2017 MEGA COURTNEY MD Ot C61 MALIGNANT NEOPLASM OF PROSTATE 07/26/2017 MEGA COURTNEY MD, Ot C79.51 SECONDARY MALIGNANT NEOPLASM OF BONE 07/26/2017 MEGA COURTNEY MD, Ot 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 07/26/2017 MEGA COURTNEY MD Ot G40.909 EPILEPSY, UNSP, NOT INTRACTABLE, WITHOUT 07/26/2017 MEGA COURTNEY MD Ot I10 ESSENTIAL (PRIMARY) HYPERTENSION 07/26/2017 MEGA COURTNEY MD, Ot I25.810 ATHEROSCLEROSIS OF CABG W/O ANGINA PECTO 07/26/2017 MEGA COURTNEY MD, Ot I42.9 CARDIOMYOPATHY, UNSPECIFIED 07/26/2017 MEAG COURTNEY MD, Ot I69.354 HEMIPLGA FOLLOWING CEREBRAL INFRC AFFECT 07/26/2017 MEGA COURTNEY MD Ot R53.1 WEAKNESS 07/26/2017 MEGA COURTNEY MD Ot Z66 DO NOT RESUSCITATE 07/26/2017 MEGA COURTNEY MD, Ot Z86.73 PRSNL HX OF TIA (TIA), AND CEREB INFRC W 07/26/2017 MEGA COURTNEY MD, Ot Z87.891 PERSONAL HISTORY OF NICOTINE DEPENDENCE 07/26/2017 MEGA COURTNEY MD Ot Z95.1 PRESENCE OF AORTOCORONARY BYPASS GRAFT 08/09/2017 MEGA COURTNEY MD, Ot C61 MALIGNANT NEOPLASM OF PROSTATE Procedures [...] Status Pt. Type Provider Facility Loc./Unit Complaint [id number] 07/27/2017 16:07:00 07/27/2017 23:59:59 CLS Preadmit MAURICIO WINTERS MD [facility] ONC [id number] 07/25/2017 12:30:00 07/26/2017 16:19:00 DIS Inpatient MEGA COURTNEY MD [facility] 4TH LEFT HEMIPARESIS,FOCAL SEIZURES,MULTIPLE FALLS [id number] 07/18/2017 12:04:00 07/18/2017 23:59:59 CLS Outpatient MEGA COURTNEY MD [facility] CARD ELEVATED ALKFOS [id number] 12/25/2015 13:07:00 12/25/2015 23:59:59 CLS Outpatient MEGA COURTNEY MD [facility] RAD TIA [id number] 12/04/2013 11:57:00 12/04/2013 23:59:59 CLS Outpatient VENECIA JOHNSON MD [facility] RAD PERIPHERAL VASCULAR DISEASE,PREOP [id number] 10/25/2012 09:21:00 10/25/2012 14:00:00 DIS Outpatient [id number] 10/22/2012 13:14:00 10/22/2012 23:59:59 CLS Outpatient MEGA COURTNEY MD [facility] RAD [id number] 09/06/2012 08:04:00 09/06/2012 23:59:59 CLS Outpatient [id number] 08/15/2017 11:54:00 PEN Preadmit MEGA COURTNEY MD [facility] REHAB OLD RCVA W L LE WEAKNESS; DECONDITIONING AND FALLS
--- NOTE | 2017-08-14 01:05 | ED Fall/Injury ---
General Chief Complaint: Trauma-Non Activation Stated Complaint: FALL Source: patient, EMS History of Present Illness Date Seen by Provider: Aug 14, 2017 Time Seen by Provider: 00:55 Initial Comments Here by EMS with report of lower and mid back pain after fall at the longterm. Apparently his walker went one way and he fell backwards and hit a door and then fell to his bottom. Denies hitting his head or loss consciousness. He was actually helped back up at the time and was able to walk with assistance. Patient fell at approximately 2030 last night. Started having more significant pain one to 2 hours ago to the low and mid back centrally. Does have history of prostate cancer with potential bony metastasis. Denies pain in his hips or knees. Does have bilateral lower extremity swelling. He was given pain medicines at the longterm and that seems to have helped now. Occurred: other (last evening) Severity: moderate Injuries/Pain Location: back Context: lost balance, slipped Loss of Consciousness: no loss of consciousness Associated Symptoms (Fall): No Abdominal Pain, No Chest Pain, No Confusion, No Headache; Muscle Spasms; No Nausea/Vomiting Allergies and Home Medications Allergies Coded Allergies: lisinopril (Verified Allergy, Severe, tongue swelling, 07/25/17) Home Medications Carvedilol 25 Mg Tablet, 25 MG PO BID, (Reported) Olmesartan Medoxomil 40 Mg Tablet, 40 MG PO DAILY, (Reported) Phenytoin Sodium Extended 100 Mg Capsule, 200 MG PO DAILY, (Reported) TAKES 2 (100 MG) CAPSULES Phenytoin Sodium Extended 100 Mg Capsule, 300 MG PO Q12HR Prescribed by: MEGA COURTNEY on 07/26/17 0841 Simvastatin 20 Mg Tablet, 10 MG PO HS, (Reported) TAKES 1/2 OF A (20 MG) TABLET Spironolactone 25 Mg Tablet, 25 MG PO DAILY, (Reported) Patient Home Medication List Home Medication List Reviewed: Yes Review of Systems Constitutional: see HPI; No chills, No fever, No weakness Eyes: No Symptoms Reported Ears, Nose, Mouth, Throat: no symptoms reported Respiratory: no symptoms reported; No cough, No short of breath Cardiovascular: No chest pain; edema Gastrointestinal: No abdominal pain, No nausea, No vomiting Genitourinary: no symptoms reported Musculoskeletal: see HPI, back pain; No neck pain Skin: No lesions, No rash Psychiatric/Neurological: No Symptoms Reported All Other Systems Reviewed Negative Unless Noted: Yes Past Rmgnpyg-Hhghcu-Jzhbrx Hx Past Med/Social Hx: Reviewed Nursing Past Med/Soc Hx Patient Social History Alcohol Use: Occasionally Uses Alcohol Beverage of Choice: [place] Smoking Status: Former Smoker Type Used: Cigarettes Recent Hopitalizations: No Immunizations Up To Date PED Vaccines UTD: No Seasonal Allergies Seasonal Allergies: No Past Medical History Surgeries: Yes Abdominal, CABG Respiratory: No Currently Using CPAP: No Currently Using BIPAP: No Cardiac: No Cardiomyopathy, Coronary Artery Disease, Hypertension Sexually Transmitted Disease: No HIV/AIDS: No Genitourinary: No Gastrointestinal: No Musculoskeletal: No Endocrine: No HEENT: No Loss of Vision: Denies Hearing Impairment: Denies Cancer: No Prostate, Bone Psychosocial: No Integumentary: No Blood Disorders: No Adverse Reaction/Blood Tranf: No Family Medical History Reviewed Nursing Family Hx Patient reports no known family medical history. Heart Disease, Cancer Physical Exam Vital Signs Vital Signs - First Documented Capillary Refill : General Appearance: WD/WN, no apparent distress HEENT: PERRL/EOMI, pharynx normal Neck: full range of motion, supple Cardiovascular: regular rate, rhythm, no murmur Respiratory: lungs clear, normal breath sounds Gastrointestinal: non tender, soft Back: no CVA tenderness, vertebral tenderness (low thoracic upper lumbar area) Extremities: non-tender, normal inspection Neurologic/Psychiatric: alert, oriented x 3 Skin: normal color, warm/dry Progress/Results/Core Measures Results/Orders My Orders Orders - GALINDO LOFTON MD Ct Thoracic/Lumbar Spine Wo (08/14/17 00:55) Pelvis (08/14/17 00:55) Hydrocodone/Apap 7.5/325 Tab (Lortab 7. (08/14/17 02:26) Vital Signs/I&O 08/14/17 08/14/17 00:45 00:45 Temp 98.6 98.6 Pulse 70 70 Resp 14 14 B/P (MAP) 150/60 (90) 150/60 (90) Pulse Ox 97 97 O2 Delivery Room Air Room Air Progress Progress Note : Progress Note Seen and evaluated. CT thoracolumbar spine. X-ray pelvis ordered. Monitor patient. 0230: CT scan results noted. Patient does not have pain in the area of T3. I do believe that the low back pain is related to the fall but there is no acute fractures. We will increase pain medication availability to let him have hydrocodone 5/325 mg one tab by mouth every 6 hours when necessary moderate pain and 2 tabs by mouth every 6 hours when necessary severe pain. Orders written. Patient will available use his previously prescribed medication for that and that will be updated on his orders. I will send a copy of the chart to Dr. Courtney. Discharge back to longterm with return precautions. Patient verbalize understanding instructions and agreement with plan. Diagnostic Imaging Diagonstic Imaging: CT Plain Films/CT/US/NM/MRI: other (thoracolumbar spine) Comments Moderate compression defect at 25, age indeterminate. Please correlate with mechanism of injury location of pain. No acute subluxation. Blastic bone metastasis. Lumbar spine shows no acute fracture or subluxation. Blastic bone metastasis noted. Reviewed: Reviewed [place] Study, Reviewed by Me Departure Impression Primary Impression: Low back pain Qualified Codes: M54.5 - Low back pain Additional Impression: Prostate cancer metastatic to bone Disposition: HOME, SELF-CARE Condition: Stable Departure-Patient Inst. Decision time for Depature: 02:36 Referrals: MEGA COURTNEY MD (PCP) Primary Care Physician Patient Instructions: Low Back Pain (DC) Add. Discharge Instructions: All discharge instructions reviewed with patient and/or family. Voiced understanding. Take medications as directed. Follow-up with Dr. Courtney this week for recheck and further evaluation. Return for worse pain, fever, vomiting, weakness, breathing problems or other concerns as needed. Copy Copies To 1: MEGA COURTNEY MD, TIMOTHY D MD Aug 14, 2017 01:05
[2017-08-14] MEDS ORDERED: HYDROcodone/APAP 7.5 MG/325 MG (LORTAB, LORCET PLUS) TABLET PO STA (02:26)
[2017-08-14 02:46] VITALS: BP 144/60
--- NOTE | 2017-08-14 06:50 | Diagnostic Imaging Report ---
INDICATION: Pain. Comparison limited to post myelography CT lumbar spine performed in 2013. FINDINGS: Having developed since the previous CTs are widespread and extensive blastic metastatic foci throughout the thoracolumbar spine involving each vertebral body and all posterior elements as well as visualized ribs, sacrum and innominate bones acetabula in the upper femoral heads and the coccygeal segments. The superior and inferior fractures of the third thoracic vertebral body without appreciable paravertebral hemorrhage or edema. This is of uncertain acuity. There is very slight bowing and retropulsion of the posterior cortex without substantial degree of resultant canal stenosis. No other fracture pattern is found. Partially visualized lungs nonacute. There are renal cysts and renal calcifications presumed vascular. The aorta is calcified and ectatic but nonaneurysmal a 2.5 cm distally. No appreciable pelvic sidewall adenopathy. Patient's prostate is presumed below the [id number] or absent. No demonstrated retroperitoneal or periaortic adenopathy. IMPRESSION: 1. Acuity indeterminate, mildly retropulsed T3 fracture without substantial canal stenosis. 2. Having developed since the study of 2012, there are findings of widespread osteosclerotic bony metastatic disease throughout the visualized appendicular and axial skeleton. No other fracture is identified. 3. Aortic atherosclerotic ectasia with no visualized soft tissue mass. Dictated by: Dictated on workstation # [id number]
--- NOTE | 2017-08-14 07:24 | Diagnostic Imaging Report ---
INDICATION: Fall pain FINDINGS: The exam is interpreted in correlation with a whole-body bone scan performed 07/18/2017. FINDINGS: There are innumerable osteoblastic sclerotic bony metastatic foci throughout the pelvis involving each of the visualized lower lumbar levels. The innominate bones and sacrum, obturator rings in the proximal femora. There is radiation implant seeds projecting over the level of the prostatic bed. Metastatic prostate cancer would be presumed. Pathological fracture is not revealed at this study. IMPRESSION: Presumed widespread and severe bony metastatic disease which may be of prostate origin. No pathological fracture revealed. Dictated by: Dictated on workstation # [id number]
== END 2017-08-14 02:56 | disposition home or self-care (01) ==
LOC: EDUNIT# 00:45 → ER 00:46
DX: M54.5 Low back pain (principal); C61 Malignant neoplasm of prostate; C79.51 Secondary malignant neoplasm of bone; I42.9 Cardiomyopathy, unspecified; I25.10 Atherosclerotic heart disease of native coronary artery without angina pectoris; I10 Essential (primary) hypertension; Z82.49 Family history of ischemic heart disease and other diseases of the circulatory system; Z88.8 Allergy status to other drugs, medicaments and biological substances; Z87.891 Personal history of nicotine dependence; Z98.1 Arthrodesis status
CPT/HCPCS: 72128; 72131; 72170

== ENCOUNTER → 2017-08-15 | Outpatient (CLI) | payer MEDICARE ==
--- NOTE | 2017-08-15 13:58 | Diagnostic Imaging Report ---
INDICATION: Left leg swelling. Left leg venous Doppler study was performed in the routine fashion with color flow Doppler and waveform analysis. FINDINGS: The left common femoral vein, superficial femoral vein, popliteal vein and visualized portion of the posterior tibial vein show normal compressibility and venous flow patterns. There is normal augmentation. IMPRESSION: No evidence of deep vein thrombosis of the major veins of the left leg. Dictated by: Dictated on workstation # [id number]
== END ==
LOC: RAD 12:42
PROVIDERS: ATTEND Internal Medicine
DX: M79.89 Other specified soft tissue disorders (principal); R79.1 Abnormal coagulation profile

== ENCOUNTER 2017-09-01 13:26 | Outpatient (RCR) | payer MEDICARE ==
[~2017-09-01 13:26] MED LIST changes: -SPIR25TA3 PO; +SPIR25TA5 PO
[2017-10-18] MEDS ORDERED: FISH1CAP15 PO (16:53)
[2017-10-18] MEDS ORDERED: DOCU-143 PO (16:53)
[2017-10-18] MEDS ORDERED: HYDR-3812 PO (16:53)
[2017-10-18] MEDS ORDERED: LEVE500T6 PO (16:53)
[2017-10-18] MEDS ORDERED: ASPI325T32 PO (16:53)
[2017-10-18] MEDS ORDERED: BUME2TAB3 PO (16:53)
[2017-10-18] MEDS ORDERED: CHOL10007 PO (16:53)
[2017-10-18] MEDS ORDERED: ASCO-262 PO (16:53)
[2017-10-18] MEDS ORDERED: BICA50TA5 PO (16:55)
[2017-10-18] MEDS ORDERED: FURO40TA4 PO (17:32)
== END 2017-10-18 12:54 | disposition home or self-care (01) ==
LOC: ONC 13:26
PROVIDERS: ATTEND Internal Medicine Hematology & Oncology
DX: C61 Malignant neoplasm of prostate (principal); C79.51 Secondary malignant neoplasm of bone; R22.0 Localized swelling, mass and lump, head; R56.9 Unspecified convulsions; R60.1 Generalized edema; I50.9 Heart failure, unspecified; I25.10 Atherosclerotic heart disease of native coronary artery without angina pectoris; F17.210 Nicotine dependence, cigarettes, uncomplicated; I69.344 Monoplegia of lower limb following cerebral infarction affecting left non-dominant side; Z79.82 Long term (current) use of aspirin; Z79.899 Other long term (current) drug therapy; Z95.1 Presence of aortocoronary bypass graft
CPT/HCPCS: 99214

== ENCOUNTER 2017-10-18 13:01 | Outpatient (RCR) | payer MEDICARE ==
[2017-10-18 13:28] LABS: BASOPHILS % (AUTO) 0 % (0-10); EOSINOPHILS # (AUTO) 0.3 10^3/uL (0.0-0.3); EOSINOPHILS % (AUTO) 5 % (0-10); HEMATOCRIT 33 % (40-54); HEMOGLOBIN 11.3 G/DL (13.3-17.7); LYMPHOCYTES # (AUTO) 1.9 X 10^3 (1.0-4.0); LYMPHOCYTES % (AUTO) 36 % (12-44); MEAN CORPUSCULAR HEMOGLOBIN 29 PG (25-34); MEAN CORPUSCULAR HGB CONC 34 G/DL (32-36); MEAN CORPUSCULAR VOLUME 86 FL (80-99); MEAN PLATELET VOLUME 10.2 FL (7.4-10.4); MONOCYTES # (AUTO) 0.4 X 10^3 (0.0-1.0); MONOCYTES % (AUTO) 8 % (0-12); NEUTROPHILS # (AUTO) 2.7 X 10^3 (1.8-7.8); NEUTROPHILS % (AUTO) 51 % (42-75); PLATELET COUNT 199 10^3/uL (130-400); RED BLOOD COUNT 3.86 10^6/uL (4.35-5.85); WHITE BLOOD COUNT 5.3 10^3/uL (4.3-11.0)
[2017-10-18 13:50] LABS: ALBUMIN 4.4 GM/DL (3.2-4.5); BILIRUBIN,TOTAL 0.3 MG/DL (0.1-1.0); CALCIUM 9.8 MG/DL (8.5-10.1); CREATININE SERUM 1.32 MG/DL (0.60-1.30); POTASSIUM 6.3 MMOL/L (3.6-5.0); TOTAL PROTEIN 7.6 GM/DL (6.4-8.2)
[2017-10-18] MEDS ORDERED: NS IV SCH (14:30)
[2017-10-18] MEDS ORDERED: ZOLEDRONIC ACID IV SCH (14:30)
[2017-10-18] MEDS ORDERED: LEUPROLIDE 22.5 MG SYRIN(ELIGARD) SQ SCH (14:30)
[2017-10-18] MEDS ORDERED: ZOLEDRONIC ACID (CANCER CTR) 4 MG in NS (IVPB) CANCER CENTER 100 ML IV SCH ×4 (15:15)
[2017-10-18] MEDS ORDERED: ASCO-262 PO (16:53)
[2017-10-18] MEDS ORDERED: HYDR-3812 PO (16:53)
[2017-10-18] MEDS ORDERED: CHOL10007 PO (16:53)
[2017-10-18] MEDS ORDERED: ASPI325T32 PO (16:53)
[2017-10-18] MEDS ORDERED: DOCU-143 PO (16:53)
[2017-10-18] MEDS ORDERED: LEVE500T6 PO (16:53)
[2017-10-18] MEDS ORDERED: BUME2TAB3 PO (16:53)
[2017-10-18] MEDS ORDERED: FISH1CAP15 PO (16:53)
[2017-10-18] MEDS ORDERED: BICA50TA5 PO (16:55)
[2017-10-18] MEDS ORDERED: FURO40TA4 PO (17:32)
== END 2017-11-10 | disposition home or self-care (01) ==
LOC: ONC 13:01
PROVIDERS: ATTEND Internal Medicine Hematology & Oncology
DX: Z51.11 Encounter for antineoplastic chemotherapy (principal); C61 Malignant neoplasm of prostate; C79.51 Secondary malignant neoplasm of bone; R22.0 Localized swelling, mass and lump, head; R56.9 Unspecified convulsions; R60.1 Generalized edema; I50.9 Heart failure, unspecified; I25.10 Atherosclerotic heart disease of native coronary artery without angina pectoris; F17.210 Nicotine dependence, cigarettes, uncomplicated; I69.344 Monoplegia of lower limb following cerebral infarction affecting left non-dominant side; Z79.82 Long term (current) use of aspirin; Z79.899 Other long term (current) drug therapy; Z95.1 Presence of aortocoronary bypass graft
CPT/HCPCS: 36415; 80053; 84132; 84153; 85025; 96365; 96402

== ENCOUNTER 2017-10-18 15:38 | Observation (INO) | payer MEDICARE ==
[~2017-10-18] VITALS: Ht 172.7 cm; Wt 97.8 kg
--- OUTSIDE RECORDS SUMMARY | 2017-10-18 15:51 | XMS REPORT | Continuity of Care Document ---
Author Author [facility] Organization [facility] Address Unknown Phone Unavailable Allergies Active Description Code Type Severity Reaction Onset Reported/Identified Relationship to Patient Clinical Status Yes No Known Drug Allergies [id number] Drug Allergy Unknown N/A 10/26/2012 Yes lisinopril [id number] Drug Allergy Severe tongue swelling 07/25/2017 Yes lisinopril [id number] Drug Allergy Unknown N/A 07/25/2017 Medications There [...] MALIGNANT NEOPLASM OF PROSTATE 07/26/2017 MEGA COURTNEY MD Ot C79.51 SECONDARY MALIGNANT NEOPLASM OF BONE 07/26/2017 MEGA COURTNEY MD Ot 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 07/26/2017 MEGA COURTNEY MD Ot G40.909 EPILEPSY, UNSP, NOT INTRACTABLE, WITHOUT 07/26/2017 MEGA COURTNEY MD Ot I10 ESSENTIAL (PRIMARY) HYPERTENSION 07/26/2017 MEGA COURTNEY MD Ot I25.810 ATHEROSCLEROSIS OF CABG W/O ANGINA PECTO 07/26/2017 MEGA COURTNEY MD Ot I42.9 CARDIOMYOPATHY, UNSPECIFIED 07/26/2017 MEGA COURTNEY MD Ot I69.354 HEMIPLGA FOLLOWING CEREBRAL INFRC AFFECT 07/26/2017 MEGA COURTNEY MD Ot R53.1 WEAKNESS 07/26/2017 MEGA COURTNEY MD Ot Z66 DO NOT RESUSCITATE 07/26/2017 MEGA COURTNEY MD, Ot Z86.73 PRSNL HX OF TIA (TIA), AND CEREB INFRC W 07/26/2017 MEGA COURTNEY MD Ot Z87.891 PERSONAL HISTORY OF NICOTINE DEPENDENCE 07/26/2017 MEGA COURTNEY MD Ot Z95.1 PRESENCE OF AORTOCORONARY BYPASS GRAFT 08/09/2017 MEGA COURTNEY MD Ot C61 MALIGNANT NEOPLASM OF PROSTATE 08/14/2017 GALINDO LOFTON MD Ot C61 MALIGNANT NEOPLASM OF PROSTATE 08/14/2017 GALINDO LOFTNO MD, Ot C79.51 SECONDARY MALIGNANT NEOPLASM OF BONE 08/14/2017 GALINDO LOFTON MD Ot I10 ESSENTIAL (PRIMARY) HYPERTENSION 08/14/2017 GALINDO LOFTON MD Ot I25.10 ATHSCL HEART DISEASE OF [place] CORONARY 08/14/2017 GALINDO LOFTON MD Ot I42.9 CARDIOMYOPATHY, UNSPECIFIED 08/14/2017 GALINDO LOFTON MD Ot M54.5 LOW BACK PAIN 08/14/2017 GALINDO LOFTON MD Ot M54.9 DORSALGIA, UNSPECIFIED 08/14/2017 GALINDO LOFTON MD Ot Z82.49 FAMILY HX OF [place] HEART DIS AND OTH DI 08/14/2017 GALINDO LOFTON MD Ot Z87.891 PERSONAL HISTORY OF NICOTINE DEPENDENCE 08/14/2017 GALINDO LOFTON MD Ot Z88.8 ALLERGY STATUS TO OTH DRUG/MEDS/BIOL SUB 08/14/2017 GALINDO LOFTON MD Ot Z98.1 ARTHRODESIS STATUS 08/16/2017 GALINDO LOFTON MD Ot C61 MALIGNANT NEOPLASM OF PROSTATE 08/16/2017 GALINDO LOFTON MD Ot C79.51 SECONDARY MALIGNANT NEOPLASM OF BONE 08/16/2017 GALINDO LOFTON MD Ot I10 ESSENTIAL (PRIMARY) HYPERTENSION 08/16/2017 GALINDO LOFTON MD Ot I25.10 ATHSCL HEART DISEASE OF [place] CORONARY 08/16/2017 GALINDO LOFTON MD Ot I42.9 CARDIOMYOPATHY, UNSPECIFIED 08/16/2017 GALINDO LOFTON MD Ot M54.5 LOW BACK PAIN 08/16/2017 GALINDO LOFTON MD Ot M54.9 DORSALGIA, UNSPECIFIED 08/16/2017 GALINDO LOFTON MD Ot Z82.49 FAMILY HX OF [place] HEART DIS AND OTH DI 08/16/2017 GALINDO LOFTON MD Ot Z87.891 PERSONAL HISTORY OF NICOTINE DEPENDENCE 08/16/2017 GALINDO LOFTON MD Ot Z88.8 ALLERGY STATUS TO OTH DRUG/MEDS/BIOL SUB 08/16/2017 GALINDO LOFTON MD Ot Z98.1 ARTHRODESIS STATUS 08/16/2017 MEGA COURTNEY MD Ot M79.89 OTHER SPECIFIED SOFT TISSUE DISORDERS 08/16/2017 MEGA COURTNEY MD Ot R79.1 ABNORMAL COAGULATION PROFILE 08/21/2017 MEGA COURTNEY MD Ot M79.89 OTHER SPECIFIED SOFT TISSUE DISORDERS 08/21/2017 MEGA COURTNEY MD Ot R79.1 ABNORMAL COAGULATION PROFILE 2017 MEGA COURTNEY MD Ot C61 MALIGNANT NEOPLASM OF PROSTATE 09/06/2017 MEGA COURTNEY MD Ot M79.89 OTHER SPECIFIED SOFT TISSUE DISORDERS 09/06/2017 MEGA COURTNEY MD Ot R79.1 ABNORMAL COAGULATION PROFILE 09/22/2017 MEGA COURTNEY MD Ot M79.89 OTHER SPECIFIED SOFT TISSUE DISORDERS 09/22/2017 COURTNEY MD, MEGA D Ot R79.1 ABNORMAL COAGULATION PROFILE 10/02/2017 MAURICIO WINTERS MD Ot C61 MALIGNANT NEOPLASM OF PROSTATE 10/02/2017 MAURICIO WINTERS MD, Ot C79.51 SECONDARY MALIGNANT NEOPLASM OF BONE 10/02/2017 MAURICIO WINTERS MD, Ot F17.210 NICOTINE DEPENDENCE, CIGARETTES, UNCOMPL 10/02/2017 MAURICIO WINTERS MD Ot I25.10 ATHSCL HEART DISEASE OF [place] CORONARY 10/02/2017 MAURICIO WINTERS MD, Ot I50.9 HEART FAILURE, UNSPECIFIED 10/02/2017 MAURICIO WINTERS MD Ot 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 Results Test [...] Status Pt. 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; DECONDITIONING AND FALLS [id number] 08/14/2017 00:46:00 08/14/2017 02:56:00 DIS Emergency GALINDO LOFTON MD [facility] ER FALL [id number] 07/25/2017 12:30:00 07/26/2017 16:19:00 DIS Inpatient MEGA COURTNEY MD [facility] 4TH LEFT HEMIPARESIS,FOCAL SEIZURES,MULTIPLE FALLS [id number] 07/18/2017 12:04:00 07/18/2017 23:59:59 CLS Outpatient MEGA COURTNEY MD [facility] CARD ELEVATED ALKFOS [id number] 12/25/2015 13:07:00 12/25/2015 23:59:59 CLS Outpatient MEGA COURTNEY MD [facility] RAD TIA [id number] 12/04/2013 11:57:00 12/04/2013 23:59:59 CLS Outpatient VENECIA JOHNSON MD [facility] RAD PERIPHERAL VASCULAR DISEASE,PREOP [id number] 10/25/2012 09:21:00 10/25/2012 14:00:00 DIS Outpatient [id number] 10/22/2012 13:14:00 10/22/2012 23:59:59 CLS Outpatient MEGA COURTNEY MD [facility] RAD [id number] 09/06/2012 08:04:00 09/06/2012 23:59:59 CLS Outpatient
--- OUTSIDE RECORDS SUMMARY | 2017-10-18 15:51 | XMS REPORT | Continuity of Care Document ---
Author Author [facility] Organization [facility] Address Unknown Phone Unavailable Care Team Providers Care Fire Prevention Specialist Name Role Phone MEGA COURTNEY MD PP Insurance Providers Payer Name Policy Number Subscriber Name Relationship [facility] [id number] Gabby Loja Self / Same As Patient s Medicare [id number] Gabby Loja Jr Self / Same As Patient Advance Directives Directive Response Recorded Date Advance Directives Y 10/25/12 9:59am Problems No Known Problems or Medical conditions. Allergies, Adverse Reactions, Alerts No known allergies Medications Medication Dose Units Route Sig Qty Days Sjkzfxgd-Xxuyhri-Giij 149-Hyal (Glucosamine-Chondr Complex Tab) 1 Each PO DAILY Ascorbic Acid (Vitamin C 500 Mg) 500 Mg PO DAILY Calcium Carb/Vit D3/Minerals (Hm Calcium 600 Mg-Vit D Tab) 1 Each PO Aspirin (Aspirin 325 Mg Tab) 325 Mg PO DAILY Potassium Chloride (Potassium Chloride 10 Meq Cap) 1 Each PO DAILY PRN Furosemide 1 Each PO DAILY PRN Olmesartan (Benicar) 1 Tab PO DAILY Carvedilol 1 Each PO BID Atorvastatin Calcium (Lipitor 40MG) 1 Each PO HS Response Recorded Date/Time Status not known Unknown Results Test Date Result Interp. Ref. Range BUN/Creatinine Ratio October 22, 2012 1:42pm 30 - Blood Urea Nitrogen October 22, 2012 1:42pm 30 MG/DL H 7-18 Creatinine October 22, 2012 1:42pm 1.0 MG /DL N 0.6-1.3 Hematocrit October 25, 2012 9:58am 41 % N 40-54 Hemoglobin October 25, 2012 9:58am 13.7 G /DL N 13.3-17.7 Mean Corpuscular Hemoglobin October 25, 2012 9:58am 28 PG N 25-34 Mean Corpuscular Hemoglobin Concent October 25, 2012 9:58am 33 G/DL N 32-36 Mean Corpuscular Volume October 25, 2012 9:58am 85 FL N 80-99 Mean Platelet Volume October 25, 2012 9:58am 10.1 FL N 7.4-10.4 Platelet Count October 25, 2012 9:58am 188 10^3/uL N 130-400 Prothrombin Time October 25, 2012 9:58am 13.1 SEC N 12.2-14.7 Red Blood Count October 25, 2012 9:58am 4.86 10^6/uL N 4.35-5.85 Red Cell Distribution Width October 25, 2012 9:58am 14.9 % H 10.0-14.5 White Blood Count October 25, 2012 9:58am 7.0 10^3/uL N 4.3-11.0 Estimat Glomerular Filtration Rate October 22, 2012 1:42pm > 60 - INR Comment October 25, 2012 9:58am 1.0 N 0.8-1.4 Procedures Procedure Code Date INJECTION FOR MYELOGRAM 37681 10/25/12
[2017-10-18] MEDS ORDERED: RT-ALBUTEROL SULF 2.5 MG/3 ML PRE-MIX VIAL ONE ×2 (16:03→16:16)
[2017-10-18 16:12] VITALS: BP 117/56
[2017-10-18] MEDS ORDERED: inSUlin (REGULAR) HUMAN 1 UNIT/0.01 ML (CHARGE PER UNIT) SC NR (16:30)
[2017-10-18] MEDS ORDERED: DEXTROSE 50% 50 ML (IMS) SYR IV NR (16:30)
[2017-10-18] MEDS ORDERED: FUROSEMIDE 40 MG/4 ML INJ (LASIX) IVP NR ×2 (16:30→19:30)
[2017-10-18] MEDS ORDERED: RT-ALBUTEROL SULF 2.5 MG/3 ML PRE-MIX VIAL INH NR ×2 (16:30→19:30)
[2017-10-18] MEDS ORDERED: RT-ALBUTEROL SULF 2.5 MG/3 ML PRE-MIX VIAL INH ONE (16:30)
[2017-10-18] MEDS ORDERED: ACETAMINOPHEN 500 MG TAB (TYLENOL) PO PRN (16:45)
[2017-10-18] MEDS ORDERED: ONDANSETRON 4 MG/2 ML (SDV) Z0FRAN IV PRN (16:45)
[2017-10-18] MEDS ORDERED: MILK OF MAGNESIA 400 MG/5 ML 30 ML UDC PO PRN (16:45)
[2017-10-18] MEDS ORDERED: MELATONIN 3 MG TABLET PO PRN (16:45)
[2017-10-18] MEDS ORDERED: ANTACID SUSP 30 ML UDC (MYLANTA) PO PRN (16:45)
[2017-10-18] MEDS ORDERED: ASPI325T32 PO (16:53)
[2017-10-18] MEDS ORDERED: BUME2TAB3 PO (16:53)
[2017-10-18] MEDS ORDERED: CHOL10007 PO (16:53)
[2017-10-18] MEDS ORDERED: ASCO-262 PO (16:53)
[2017-10-18] MEDS ORDERED: DOCU-143 PO (16:53)
[2017-10-18] MEDS ORDERED: LEVE500T6 PO (16:53)
[2017-10-18] MEDS ORDERED: FISH1CAP15 PO (16:53)
[2017-10-18] MEDS ORDERED: HYDR-3812 PO (16:53)
[2017-10-18] MEDS ORDERED: BICA50TA5 PO (16:55)
[2017-10-18] MEDS ORDERED: ACETAMINOPHEN 325 MG TABLET PO PRN (17:15)
--- NOTE | 2017-10-18 17:30 | History & Physical-Hospitalist ---
History of Present Illness HPI/Chief Complaint Pt is a 77yoCM with a PMH of metastatic prostate cancer and brain mass with seizure disorder who presented to the his oncologist's office for routine visit for Lupron injection and was found to have severe hyperkalemia. He was having no symptoms at this time but does have a history of hyperkalemia but has never had to be hospitalization for it. He believes he takes Lasix but is not for sure and also thinks he may take a potassium supplement. On review of his med rec history he has not filled lasix in a few months but appears to take Bumex. Reviewing previous labs he was mildly hyperkalemic in July as well. I was contacted for direct admission for treatment of hyperkalemia. Source: patient Date Seen 10/18/17 Time Seen by Provider: 16:30 Attending Physician Fauzia Hebert MD PCP Eitan Angel MD Referring Physician Date of Admission Oct 18, 2017 at 3:46 pm Home Medications & Allergies Home Medications Reviewed patient Home Medication Reconciliation performed by pharmacy medication reconciliations auto technician and/or nursing. Patients Allergies have been reviewed. Allergies Allergies Coded Allergies lisinopril (Verified Allergy, Severe, tongue swelling, 07/25/17) Past Zuawomx-Znqhuk-Hducbs Hx Past Med/Social Hx: Reviewed Nursing Past Med/Soc Hx Patient Social History Marrital Status: Alcohol Use: Occasionally Uses Alcohol Beverage of Choice: [place] Type Used: Cigarettes Recent Hopitalizations: No Immunizations Up To Date Tetanus Booster (TDap): Unknown Pediatric: No Seasonal Allergies Seasonal Allergies: No Past Medical History Surgeries: Abdominal, CABG Currently Using CPAP: No Currently Using BIPAP: No Cardiac: Cardiomyopathy, Coronary Artery Disease, Hypertension Sexually Transmitted Disease: No HIV/AIDS: No Loss of Vision: Denies Hearing Impairment: Denies Cancer: Prostate, Bone History of Blood Disorders: No Adverse Reaction to Blood Rosa: No Family History Patient reports no known family medical history. Heart Disease, Cancer Review of Systems Constitutional: No chills, No fever EENTM: No blurred vision, No double vision, No nose congestion, No throat pain Respiratory: No cough, No dyspnea on exertion, No short of breath Cardiovascular: No chest pain, No edema, No palpitations Gastrointestinal: No abdominal pain, No constipation, No diarrhea, No nausea, No vomiting Genitourinary: No dysuria, No frequency Musculoskeletal: No joint pain, No muscle pain Skin: No lesions, No rash Psychiatric/Neurological: Denies Headache, Denies Numbness, Denies Tingling Physical Exam Physical Exam Vital Signs Vital Signs - First Documented 10/18/17 10/18/17 16:10 16:12 Temp 96.3 Pulse 76 Resp 16 B/P (MAP) 117/56 (76) Pulse Ox 94 O2 Delivery Room Air Capillary Refill : Height, Weight, BMI Height: 5'11.00" Weight: 250lbs. 1.0oz. 113.882485lk; 33.7 BMI Method:Estimated General Appearance: No Apparent Distress, WD/WN HEENT: PERRL/EOMI, Moist Mucous Membranes Neck: Non Tender, Supple Respiratory: Lungs Clear, No Respiratory Distress Cardiovascular: Regular Rate, Rhythm, No Murmur Gastrointestinal: Normal Bowel Sounds, Non Tender, Soft Extremity: Normal Capillary Refill, No Calf Tenderness Neurologic/Psychiatric: Alert, Oriented x3, Normal Mood/Affect Skin: Normal Color, Warm/Dry Results Results/Procedures Labs Laboratory Tests 10/18/17 18:55 10/19/17 05:53 10/19/17 12:25 Patient resulted labs reviewed. Assessment/Plan Admission Diagnosis Hyperkalemia Admission Status: Observation Diagnosis/Problems Diagnosis/Problems (1) Hyperkalemia Assessment & Plan: HIgh dose albuterol ordered and being given during my exam EKG shows no changes Will give insulin and D50 along with Lasix Recheck this evening and adjust treatment accordingly (2) CAD (coronary artery disease) Status: Chronic Assessment & Plan: Resume home meds s/p CABG Qualifiers: Coronary Disease-Associated Artery/Lesion type: unspecified vessel or lesion type [place] vs. transplanted heart: [place] heart Associated angina: without angina Qualified Codes: I25.10 - Atherosclerotic heart disease of [place] coronary artery without angina pectoris (3) Metastasis to bone Status: Acute Assessment & Plan: Follows with oncology, Dr Rea (4) Seizure disorder Assessment & Plan: COntinue FAUZIA Martel MD Oct 18, 2017 5:30 pm
[2017-10-18] MEDS ORDERED: FURO40TA4 PO (17:32)
[2017-10-18] MEDS ORDERED: DOCUSATE SODIUM 100 MG (COLACE) CAP PO PRN (17:45)
[2017-10-18] MEDS ORDERED: NON-FORMULARY MEDICATION 1 EA EA (Hydrocodone/Acetaminophen (Hydrocodone-Acetamin 5-325 mg PO PRN (17:45)
[2017-10-18] MEDS ORDERED: RT-ALBUTEROL/IPRATROPIUM 3 ML (DUONEB) VIAL INH PRN (18:00)
[2017-10-18] MEDS ORDERED: HYDROcodone/APAP 5 MG/325 MG (LORTAB) TAB PO PRN (18:15)
[2017-10-18] MEDS: NS IV 1000 ML 1,000 ML IV SCH (18:18)
[2017-10-18 19:17] VITALS: BP 90/53
[2017-10-18 19:21] LABS: CALCIUM 9.7 MG/DL (8.5-10.1); CREATININE SERUM 1.45 MG/DL (0.60-1.30)
[2017-10-18] MEDS ORDERED: PATIENT MAY USE OWN MEDS, ALL MC SCH (19:30)
[2017-10-18] MEDS ORDERED: SOD POLYSTERENE 15 GM/60 ML (KAYEXALATE) UNIT DOSE PO NR ×6 (20:00→23:00)
[2017-10-18] MEDS ORDERED: RT-ALBUTEROL/IPRATROPIUM 3 ML (DUONEB) VIAL INH SCH (21:00)
[2017-10-18] MEDS ORDERED: NON-FORMULARY MEDICATION 1 EA EA (Carvedilol 25 MG) PO SCH (21:00)
[2017-10-18] MEDS ORDERED: LEVETIRACETAM 1000 MG PO SCH (21:00)
[2017-10-18 21:08] VITALS: BP 88/48
[2017-10-18 21:10] VITALS: BP 82/54
[2017-10-18] MEDS: SIMvastatin 20 MG (ZOCOR) TAB PO SCH (21:25)
[2017-10-18] MEDS: LEVETIRACETAM 1,000 MG (KEPPRA) TABLET PO SCH (21:25)
[2017-10-18] MEDS: CARVEDILOL 12.5 MG (COREG) TABLET PO SCH (21:50)
[2017-10-18 22:35] VITALS: BP 116/56
[2017-10-18] MEDS: RT-ALBUTEROL/IPRATROPIUM 3 ML (DUONEB) VIAL INH SCH (22:56)
[2017-10-19] VITALS (7 sets, daily range): BP systolic 90–122; BP diastolic 52–63
[2017-10-19] MEDS: RT-ALBUTEROL/IPRATROPIUM 3 ML (DUONEB) VIAL INH SCH ×6 (02:36→21:35)
[2017-10-19] MEDS: NS IV 1000 ML 1,000 ML IV SCH ×3 (03:36→23:44)
[2017-10-19 06:03] LABS: BASOPHILS % (AUTO) 0 % (0-10); EOSINOPHILS # (AUTO) 0.4 10^3/uL (0.0-0.3); EOSINOPHILS % (AUTO) 7 % (0-10); HEMATOCRIT 32 % (40-54); HEMOGLOBIN 10.7 G/DL (13.3-17.7); LYMPHOCYTES # (AUTO) 1.8 X 10^3 (1.0-4.0); LYMPHOCYTES % (AUTO) 33 % (12-44); MEAN CORPUSCULAR HEMOGLOBIN 29 PG (25-34); MEAN CORPUSCULAR HGB CONC 34 G/DL (32-36); MEAN CORPUSCULAR VOLUME 86 FL (80-99); MEAN PLATELET VOLUME 10.7 FL (7.4-10.4); MONOCYTES # (AUTO) 0.4 X 10^3 (0.0-1.0); MONOCYTES % (AUTO) 7 % (0-12); NEUTROPHILS # (AUTO) 2.9 X 10^3 (1.8-7.8); NEUTROPHILS % (AUTO) 53 % (42-75); PLATELET COUNT 163 10^3/uL (130-400); RED BLOOD COUNT 3.69 10^6/uL (4.35-5.85); RED CELL DISTRIBUTION WIDTH 15.4 % (10.0-14.5); WHITE BLOOD COUNT 5.5 10^3/uL (4.3-11.0)
[2017-10-19 06:53] LABS: BUN/CREATININE RATIO 68; CALCIUM 9.1 MG/DL (8.5-10.1); CARBON DIOXIDE 17 MMOL/L (21-32); CHLORIDE 109 MMOL/L (98-107); CREATININE SERUM 1.11 MG/DL (0.60-1.30); GFR ESTIMATED > 60; GLUCOSE 95 MG/DL (70-105); POTASSIUM 5.9 MMOL/L (3.6-5.0); SODIUM 136 MMOL/L (135-145)
[2017-10-19] MEDS ORDERED: SOD POLYSTERENE 15 GM/60 ML (KAYEXALATE) UNIT DOSE PO NR ×2 (08:00→15:00)
[2017-10-19] MEDS: LEVETIRACETAM 1,000 MG (KEPPRA) TABLET PO SCH ×2 (08:23→21:31)
[2017-10-19] MEDS ORDERED: FUROSEMIDE 40 MG/4 ML INJ (LASIX) IVP NR ×2 (08:30→15:00)
[2017-10-19] MEDS ORDERED: FUROSEMIDE 40 MG/4 ML INJ (LASIX) ONE (08:33)
[2017-10-19] MEDS ORDERED: FUROSEMIDE 40 MG (LASIX) TAB PO SCH (09:00)
[2017-10-19 12:48] LABS: BUN/CREATININE RATIO 60; CALCIUM 8.9 MG/DL (8.5-10.1); CARBON DIOXIDE 19 MMOL/L (21-32); CHLORIDE 109 MMOL/L (98-107); CREATININE SERUM 1.03 MG/DL (0.60-1.30); GFR ESTIMATED > 60; GLUCOSE 120 MG/DL (70-105); SODIUM 136 MMOL/L (135-145)
--- NOTE | 2017-10-19 15:04 | Progress Note-Hospitalist ---
Subjective HPI/CC On Admission Date Seen by Provider: Oct 19, 2017 Time Seen by Provider: 09:00 Pt is a 77yoCM with a PMH of metastatic prostate cancer and brain mass with seizure disorder who presented to the his oncologist's office for routine visit for Lupron injection and was found to have severe hyperkalemia. He was having no symptoms at this time but does have a history of hyperkalemia but has never had to be hospitalization for it. He believes he takes Lasix but is not for sure and also thinks he may take a potassium supplement. On review of his med rec history he has not filled lasix in a few months but appears to take Bumex. Reviewing previous labs he was mildly hyperkalemic in July as well. I was contacted for direct admission for treatment of hyperkalemia. Subjective/Events-last exam Pt reports feeling well still. He is requesting discharge home. Objective Exam Vital Signs Vital Signs Date Time Temp Pulse Resp B/P (MAP) Pulse Ox O2 Delivery O2 Flow Rate FiO2 10/19/17 14:48 92 Room Air 10/19/17 13:00 80 10/19/17 12:00 97.3 20 122/57 (78) Capillary Refill : Less Than 3 Seconds General Appearance: No Apparent Distress, WD/WN Respiratory: Lungs Clear, No Respiratory Distress Cardiovascular: Regular Rate, Rhythm, No Murmur Gastrointestinal: Normal Bowel Sounds, Soft Neurologic/Psychiatric: Alert, Oriented x3, Normal Mood/Affect Results/Procedures Lab Laboratory Tests 10/18/17 18:55 10/19/17 05:53 10/19/17 12:25 Patient resulted labs reviewed. Assessment/Plan Assessment and Plan Assess & Plan/Chief Complaint Hyperkalemia Diagnosis/Problems Diagnosis/Problems (1) Hyperkalemia Assessment & Plan: Remains high Continue scheduled albuterol Redose Kayexalate and Lasix as BP allows Check BMP at 1200 EKG shows no changes (2) CAD (coronary artery disease) Status: Chronic Assessment & Plan: Resume home meds s/p CABG Qualifiers: Coronary Disease-Associated Artery/Lesion type: unspecified vessel or lesion type [place] vs. transplanted heart: [place] heart Associated angina: without angina Qualified Codes: I25.10 - Atherosclerotic heart disease of [place] coronary artery without angina pectoris (3) Metastasis to bone Status: Acute Assessment & Plan: Follows with oncology, Dr Rea (4) Seizure disorder Assessment & Plan: Continue [facility] Clinical Quality Measures DVT/VTE Risk/Contraindication: Risk Factor Score Per Nursin RFS Level Per Nursing on Admit: 3=High LOUISE SMITH MD Oct 19, 2017 3:04 pm
[2017-10-19] MEDS: SIMvastatin 20 MG (ZOCOR) TAB PO SCH (21:31)
[2017-10-19] MEDS: CARVEDILOL 12.5 MG (COREG) TABLET PO SCH (21:36)
[2017-10-20 00:09] VITALS: BP 93/56
[2017-10-20] MEDS: RT-ALBUTEROL/IPRATROPIUM 3 ML (DUONEB) VIAL INH SCH ×3 (03:17→10:18)
[2017-10-20 04:11] VITALS: BP 112/59
[2017-10-20 06:14] LABS: BASOPHILS % (AUTO) 0 % (0-10); EOSINOPHILS # (AUTO) 0.2 10^3/uL (0.0-0.3); EOSINOPHILS % (AUTO) 4 % (0-10); HEMATOCRIT 31 % (40-54); HEMOGLOBIN 10.2 G/DL (13.3-17.7); LYMPHOCYTES # (AUTO) 1.7 X 10^3 (1.0-4.0); LYMPHOCYTES % (AUTO) 30 % (12-44); MEAN CORPUSCULAR HEMOGLOBIN 29 PG (25-34); MEAN CORPUSCULAR HGB CONC 33 G/DL (32-36); MEAN CORPUSCULAR VOLUME 87 FL (80-99); MEAN PLATELET VOLUME 9.6 FL (7.4-10.4); MONOCYTES # (AUTO) 0.5 X 10^3 (0.0-1.0); MONOCYTES % (AUTO) 8 % (0-12); NEUTROPHILS # (AUTO) 3.2 X 10^3 (1.8-7.8); NEUTROPHILS % (AUTO) 57 % (42-75); PLATELET COUNT 175 10^3/uL (130-400); RED BLOOD COUNT 3.51 10^6/uL (4.35-5.85); RED CELL DISTRIBUTION WIDTH 15.4 % (10.0-14.5); WHITE BLOOD COUNT 5.6 10^3/uL (4.3-11.0)
[2017-10-20 06:38] LABS: BUN/CREATININE RATIO 49; CALCIUM 8.6 MG/DL (8.5-10.1); CARBON DIOXIDE 22 MMOL/L (21-32); CHLORIDE 112 MMOL/L (98-107); CREATININE SERUM 0.75 MG/DL (0.60-1.30); GFR ESTIMATED > 60; GLUCOSE 95 MG/DL (70-105); POTASSIUM 5.1 MMOL/L (3.6-5.0); SODIUM 140 MMOL/L (135-145)
[2017-10-20 08:30] VITALS: BP 110/55
[2017-10-20] MEDS: LEVETIRACETAM 1,000 MG (KEPPRA) TABLET PO SCH (09:01)
[2017-10-20] MEDS: NS IV 1000 ML 1,000 ML IV SCH (09:06)
--- NOTE | 2017-10-20 09:55 | Discharge Inst-Simple/Standard ---
Discharge Inst-Standard Patient Instructions/Follow Up Plan of Care/Instructions/FU: Please continue to take your medications as written. Please follow up with Dr Angel for labs next week. Activity as Tolerated: Yes Discharge Diet: Other Diet (Low Potassium Diet) Return to [facility] For: SOB, Chest pain, if you feel you are getting worse. LOUISE SMITH MD Oct 20, 2017 9:55 am
--- NOTE | 2017-10-20 09:57 | Discharge Summary-Hospitalist ---
Diagnosis/Chief Complaint Date of Admission Oct 18, 2017 at 3:46 pm Date of Discharge Discharge Date: Oct 20, 2017 Admission Diagnosis Hyperkalemia Discharge Diagnosis (1) Hyperkalemia Assessment & Plan: Remains high Continue scheduled albuterol Redose Kayexalate and Lasix as BP allows Check BMP at 1200 EKG shows no changes (2) CAD (coronary artery disease) Status: Chronic Assessment & Plan: Resume home meds s/p CABG (3) Metastasis to bone Status: Acute Assessment & Plan: Follows with oncology, Dr Rea (4) Seizure disorder Assessment & Plan: Continue Keppra Discharge Summary Discharge Physical Exam Allergies: Coded Allergies: lisinopril (Verified Allergy, Severe, tongue swelling, 07/25/17) Vitals & I&Os Vital Signs Date Time Temp Pulse Resp B/P (MAP) Pulse Ox O2 Delivery O2 Flow Rate FiO2 10/20/17 08:30 97.3 82 20 110/55 (73) 96 Room Air General Appearance: Alert, Oriented X3 Respiratory: Clear to Auscultation Cardiovascular: Regular Rate Hospital Course Pt was admitted due to severe hyperkalemia. He was treated with insulin and albuterol originally but responded to kayexalate and Lasix for definitive treatment. His potassium improved to 5.1 on day of discharge and elevation was likely due to medications (ARB and Spironolactone) and these were discontinued at discharge. He is to follow up with his PCP early next week to have repeat labs. He was stable and requesting discharge on day of discharge. I discussed events of hospitalization with Dr Angel prior to discharge. Labs (last 24 hrs) Patient resulted labs reviewed. Pending Labs Discussion & Recommendations Discharge Planning: >30 minutes discharge planning Discharge Home Medications: Active Scripts Active Reported Furosemide 40 Mg Tablet 40 Mg PO DAILY Bicalutamide 50 Mg Tablet 50 Mg PO DAILY Hydrocodone-Acetamin 5-325 mg (Hydrocodone/Acetaminophen) 1 Each Tablet 1-2 Tab PO Q6H PRN Fish Oil 1,200 mg Fish Oil (Fish Oil/Dha/Epa) 1 Each Capsule 1,200 Mg PO DAILY Colace (Docusate Sodium) 100 Mg Capsule 100 Mg PO BID PRN Aspirin EC (Aspirin) 325 Mg Tablet. 325 Mg PO BID Vitamin D3 (Cholecalciferol (Vitamin D3)) 1,000 Unit Capsule 1,000 Unit PO DAILY Vitamin C (Ascorbate Calcium) 500 Mg Tablet 500 Mg PO BID Levetiracetam 500 Mg Tablet 1,000 Mg PO BID TAKES 2 (500MG) TABLETS Bumetanide 2 Mg Tablet 2 Mg PO BID Simvastatin 20 Mg Tablet 10 Mg PO HS TAKES 1/2 OF A (20 MG) TABLET Carvedilol 25 Mg Tablet 25 Mg PO HS Instructions to patient/family Please see electronic discharge instructions given to patient. Clinical Quality Measures DVT/VTE Risk/Contraindication: Risk Factor Score Per Nursin RFS Level Per Nursing on Admit: 3=High Problem Qualifiers (1) CAD (coronary artery disease): Coronary Disease-Associated Artery/Lesion type: unspecified vessel or lesion type [place] vs. transplanted heart: [place] heart Associated angina: without angina Qualified Codes: I25.10 - Atherosclerotic heart disease of [place] coronary artery without angina pectoris LOUISE SMITH MD Oct 20, 2017 09:57
== END 2017-10-20 09:55 | disposition home or self-care (01) ==
LOC: 4TH 15:46 → UNDOADMOB 15:46 → 4TH 16:10 → UNDODISOB 10-20 12:40
PROVIDERS: ADMIT Family Medicine; ATTEND Family Medicine
DX: E87.5 Hyperkalemia (principal); I25.10 Atherosclerotic heart disease of native coronary artery without angina pectoris; C79.51 Secondary malignant neoplasm of bone; G40.909 Epilepsy, unspecified, not intractable, without status epilepticus; C61 Malignant neoplasm of prostate; I10 Essential (primary) hypertension; I42.9 Cardiomyopathy, unspecified; Z95.1 Presence of aortocoronary bypass graft
CPT/HCPCS: 36415; 80048; 85025; 93005; 94640; 94760; 99211; G0378

== ENCOUNTER 2018-04-11 12:43 | Outpatient (RCR) | payer MEDICARE ==
[2018-01-17 13:54] LABS: BASOPHILS % (AUTO) 0 % (0-10); EOSINOPHILS # (AUTO) 0.2 10^3/uL (0.0-0.3); EOSINOPHILS % (AUTO) 3 % (0-10); HEMATOCRIT 38 % (40-54); HEMOGLOBIN 12.2 G/DL (13.3-17.7); LYMPHOCYTES # (AUTO) 1.9 X 10^3 (1.0-4.0); LYMPHOCYTES % (AUTO) 30 % (12-44); MEAN CORPUSCULAR HEMOGLOBIN 28 PG (25-34); MEAN CORPUSCULAR HGB CONC 32 G/DL (32-36); MEAN CORPUSCULAR VOLUME 86 FL (80-99); MONOCYTES # (AUTO) 0.5 X 10^3 (0.0-1.0); MONOCYTES % (AUTO) 7 % (0-12); NEUTROPHILS # (AUTO) 3.7 X 10^3 (1.8-7.8); NEUTROPHILS % (AUTO) 60 % (42-75); PLATELET COUNT 217 10^3/uL (130-400); RED CELL DISTRIBUTION WIDTH 14.2 % (10.0-14.5); WHITE BLOOD COUNT 6.2 10^3/uL (4.3-11.0)
[2018-01-17 14:16] LABS: ALANINE AMINOTRANSFERASE 11 U/L (0-55); ALBUMIN 4.4 GM/DL (3.2-4.5); ALKALINE PHOSPHATASE 142 U/L (40-136); BILIRUBIN,TOTAL 0.3 MG/DL (0.1-1.0); BUN/CREATININE RATIO 31; CALCIUM 10.2 MG/DL (8.5-10.1); CARBON DIOXIDE 29 MMOL/L (21-32); CHLORIDE 97 MMOL/L (98-107); CREATININE SERUM 1.14 MG/DL (0.60-1.30); GFR ESTIMATED > 60; GLUCOSE 112 MG/DL (70-105); POTASSIUM 4.9 MMOL/L (3.6-5.0); SODIUM 138 MMOL/L (135-145); TOTAL PROTEIN 7.6 GM/DL (6.4-8.2)
[~2018-04-11 12:43] MED LIST changes: +ASCO-262 PO; +ASPI325T32 PO; +BICA50TA5 PO; +BUME2TAB3 PO; +CHOL10007 PO; +DOCU-143 PO; +FISH1CAP15 PO; +HYDR-3812 PO; +LEUPROLIDE 22.5 MG SYRIN(ELIGARD) SQ SCH; +LEVE500T6 PO; +ZOLEDRONIC ACID (CANCER CTR) 4 MG in NS (IVPB) CANCER CENTER 100 ML IV SCH
[2018-04-11 13:15] LABS: BASOPHILS % (AUTO) 0 % (0-10); EOSINOPHILS # (AUTO) 0.1 10^3/uL (0.0-0.3); EOSINOPHILS % (AUTO) 2 % (0-10); HEMATOCRIT 38 % (40-54); HEMOGLOBIN 12.2 G/DL (13.3-17.7); LYMPHOCYTES # (AUTO) 1.8 X 10^3 (1.0-4.0); LYMPHOCYTES % (AUTO) 31 % (12-44); MEAN CORPUSCULAR HEMOGLOBIN 27 PG (25-34); MEAN CORPUSCULAR HGB CONC 32 G/DL (32-36); MEAN CORPUSCULAR VOLUME 83 FL (80-99); MEAN PLATELET VOLUME 10.7 FL (7.4-10.4); MONOCYTES # (AUTO) 0.5 X 10^3 (0.0-1.0); MONOCYTES % (AUTO) 8 % (0-12); NEUTROPHILS # (AUTO) 3.5 X 10^3 (1.8-7.8); NEUTROPHILS % (AUTO) 59 % (42-75); PLATELET COUNT 199 10^3/uL (130-400); RED CELL DISTRIBUTION WIDTH 16.4 % (10.0-14.5); WHITE BLOOD COUNT 5.9 10^3/uL (4.3-11.0)
[2018-04-11 13:34] LABS: ALBUMIN 4.5 GM/DL (3.2-4.5); BILIRUBIN,TOTAL 0.3 MG/DL (0.1-1.0); CALCIUM 9.9 MG/DL (8.5-10.1); CREATININE SERUM 1.2 MG/DL (0.60-1.30); POTASSIUM 4.2 MMOL/L (3.6-5.0); TOTAL PROTEIN 7.5 GM/DL (6.4-8.2)
== END 2018-04-17 | disposition home or self-care (01) ==
LOC: ONC 12:43
PROVIDERS: ATTEND Internal Medicine Hematology & Oncology
DX: C61 Malignant neoplasm of prostate (principal); C79.51 Secondary malignant neoplasm of bone; R22.0 Localized swelling, mass and lump, head; R56.9 Unspecified convulsions; R60.1 Generalized edema; I50.9 Heart failure, unspecified; I25.10 Atherosclerotic heart disease of native coronary artery without angina pectoris; F17.210 Nicotine dependence, cigarettes, uncomplicated; I69.344 Monoplegia of lower limb following cerebral infarction affecting left non-dominant side; Z79.82 Long term (current) use of aspirin; Z79.899 Other long term (current) drug therapy; Z95.1 Presence of aortocoronary bypass graft
CPT/HCPCS: 36415; 80053; 84153; 85025; 96365; 96402

== ENCOUNTER 2018-08-29 13:34 | Outpatient (RCR) | payer MEDICARE ==
[2018-06-21 14:26] LABS: BASOPHILS % (AUTO) 0 % (0-10); EOSINOPHILS # (AUTO) 0.1 10^3/uL (0.0-0.3); EOSINOPHILS % (AUTO) 2 % (0-10); HEMATOCRIT 36 % (40-54); HEMOGLOBIN 12.1 G/DL (13.3-17.7); LYMPHOCYTES # (AUTO) 2.2 X 10^3 (1.0-4.0); LYMPHOCYTES % (AUTO) 33 % (12-44); MEAN CORPUSCULAR HEMOGLOBIN 28 PG (25-34); MEAN CORPUSCULAR HGB CONC 33 G/DL (32-36); MEAN CORPUSCULAR VOLUME 85 FL (80-99); MEAN PLATELET VOLUME 10.2 FL (7.4-10.4); MONOCYTES # (AUTO) 0.5 X 10^3 (0.0-1.0); MONOCYTES % (AUTO) 7 % (0-12); NEUTROPHILS % (AUTO) 59 % (42-75); PLATELET COUNT 196 10^3/uL (130-400); RED CELL DISTRIBUTION WIDTH 15.6 % (10.0-14.5); WHITE BLOOD COUNT 6.8 10^3/uL (4.3-11.0)
[2018-06-21 14:52] LABS: ALBUMIN 4.2 GM/DL (3.2-4.5); BILIRUBIN,TOTAL 0.2 MG/DL (0.1-1.0); CALCIUM 9.4 MG/DL (8.5-10.1); CREATININE SERUM 1.26 MG/DL (0.60-1.30); POTASSIUM 4.3 MMOL/L (3.6-5.0); TOTAL PROTEIN 6.7 GM/DL (6.4-8.2)
[2018-07-19 14:59] LABS: BASOPHILS % (AUTO) 0 % (0-10); EOSINOPHILS # (AUTO) 0.1 10^3/uL (0.0-0.3); EOSINOPHILS % (AUTO) 2 % (0-10); HEMATOCRIT 38 % (40-54); HEMOGLOBIN 12.1 G/DL (13.3-17.7); LYMPHOCYTES # (AUTO) 2.2 X 10^3 (1.0-4.0); LYMPHOCYTES % (AUTO) 33 % (12-44); MEAN CORPUSCULAR HEMOGLOBIN 27 PG (25-34); MEAN CORPUSCULAR HGB CONC 32 G/DL (32-36); MEAN CORPUSCULAR VOLUME 86 FL (80-99); MEAN PLATELET VOLUME 10.4 FL (7.4-10.4); MONOCYTES # (AUTO) 0.4 X 10^3 (0.0-1.0); MONOCYTES % (AUTO) 6 % (0-12); NEUTROPHILS # (AUTO) 4.1 X 10^3 (1.8-7.8); NEUTROPHILS % (AUTO) 60 % (42-75); PLATELET COUNT 207 10^3/uL (130-400); RED CELL DISTRIBUTION WIDTH 15.2 % (10.0-14.5); WHITE BLOOD COUNT 6.9 10^3/uL (4.3-11.0)
[2018-07-19 15:17] LABS: ALANINE AMINOTRANSFERASE 16 U/L (0-55); ALBUMIN 4.5 GM/DL (3.2-4.5); ALKALINE PHOSPHATASE 155 U/L (40-136); BILIRUBIN,TOTAL 0.3 MG/DL (0.1-1.0); BUN/CREATININE RATIO 34; CALCIUM 9.6 MG/DL (8.5-10.1); CARBON DIOXIDE 28 MMOL/L (21-32); CHLORIDE 100 MMOL/L (98-107); CREATININE SERUM 1.12 MG/DL (0.60-1.30); GFR ESTIMATED > 60; GLUCOSE 94 MG/DL (70-105); POTASSIUM 4.4 MMOL/L (3.6-5.0); SODIUM 138 MMOL/L (135-145); TOTAL PROTEIN 7.4 GM/DL (6.4-8.2)
[2018-08-09 13:29] LABS: BASOPHILS % (AUTO) 0 % (0-10); EOSINOPHILS # (AUTO) 0.1 10^3/uL (0.0-0.3); EOSINOPHILS % (AUTO) 1 % (0-10); HEMATOCRIT 36 % (40-54); HEMOGLOBIN 11.8 G/DL (13.3-17.7); LYMPHOCYTES # (AUTO) 1.8 X 10^3 (1.0-4.0); LYMPHOCYTES % (AUTO) 21 % (12-44); MEAN CORPUSCULAR HEMOGLOBIN 28 PG (25-34); MEAN CORPUSCULAR HGB CONC 33 G/DL (32-36); MEAN CORPUSCULAR VOLUME 85 FL (80-99); MEAN PLATELET VOLUME 10.4 FL (7.4-10.4); MONOCYTES # (AUTO) 0.5 X 10^3 (0.0-1.0); MONOCYTES % (AUTO) 6 % (0-12); NEUTROPHILS # (AUTO) 6.2 X 10^3 (1.8-7.8); NEUTROPHILS % (AUTO) 72 % (42-75); PLATELET COUNT 195 10^3/uL (130-400); RED CELL DISTRIBUTION WIDTH 14.9 % (10.0-14.5); WHITE BLOOD COUNT 8.6 10^3/uL (4.3-11.0)
[2018-08-09 13:42] LABS: ALANINE AMINOTRANSFERASE 13 U/L (0-55); ALBUMIN 4.2 GM/DL (3.2-4.5); ALKALINE PHOSPHATASE 180 U/L (40-136); BILIRUBIN,TOTAL 0.3 MG/DL (0.1-1.0); BUN/CREATININE RATIO 40; CALCIUM 9.2 MG/DL (8.5-10.1); CARBON DIOXIDE 27 MMOL/L (21-32); CHLORIDE 97 MMOL/L (98-107); CREATININE SERUM 1.11 MG/DL (0.60-1.30); GFR ESTIMATED > 60; GLUCOSE 96 MG/DL (70-105); POTASSIUM 4.3 MMOL/L (3.6-5.0); SODIUM 135 MMOL/L (135-145); TOTAL PROTEIN 6.8 GM/DL (6.4-8.2)
== END 2018-09-19 | disposition home or self-care (01) ==
LOC: ONC 13:34
PROVIDERS: ATTEND Internal Medicine Hematology & Oncology
DX: C61 Malignant neoplasm of prostate (principal); C79.51 Secondary malignant neoplasm of bone; R22.0 Localized swelling, mass and lump, head; R56.9 Unspecified convulsions; R60.1 Generalized edema; I50.9 Heart failure, unspecified; I25.10 Atherosclerotic heart disease of native coronary artery without angina pectoris; F17.210 Nicotine dependence, cigarettes, uncomplicated; I69.344 Monoplegia of lower limb following cerebral infarction affecting left non-dominant side; Z79.82 Long term (current) use of aspirin; Z79.899 Other long term (current) drug therapy; Z95.1 Presence of aortocoronary bypass graft
CPT/HCPCS: 36415; 80053; 84153; 85025; 99213

== ENCOUNTER → 2018-10-09 | Outpatient (CLI) | payer MEDICARE ==
[~2018-10-09] MED LIST changes: +CATHETER FLUSH 10 ML SYR IV PRN; -LEUPROLIDE 22.5 MG SYRIN(ELIGARD) SQ SCH; -ZOLEDRONIC ACID (CANCER CTR) 4 MG in NS (IVPB) CANCER CENTER 100 ML IV SCH
--- NOTE | 2018-10-09 13:18 | Diagnostic Imaging Report ---
PROCEDURE: CT chest, abdomen, and pelvis with contrast. TECHNIQUE: Multiple contiguous axial images were obtained through the chest, abdomen, and pelvis after the administration of intravenous contrast. Auto Exposure Controls were utilized during the CT exam to meet ALARA standards for radiation dose reduction. INDICATION: Prostate carcinoma. COMPARISON: No prior studies are available for comparison. FINDINGS: CT chest: There are postop changes in median sternotomy and CABG. No axillary lymphadenopathy is identified. No mediastinal or hilar lymphadenopathy is seen. No pericardial or pleural fluid is detected. No pulmonary infiltrates, nodules or masses are seen. There is some scarring in the lingula. Bony structures demonstrate marked osseous sclerosis throughout the thoracic spine as well as involvement of bilateral ribs, bilateral shoulder girdles, sternum consistent with diffuse osteoblastic metastatic disease. IMPRESSION: 1. No evidence of thoracic lymphadenopathy or pulmonary metastatic disease. 2. Diffuse osteoblastic disease. CT abdomen and pelvis: No discrete liver mass is identified. The gallbladder is unremarkable. No biliary ductal dilatation is seen. The pancreas and spleen are unremarkable. No adrenal mass is identified. Left kidney does contain a cortical low density projecting medially measuring 4.5 cm in size and is suggesting of a cyst. There are renal vascular calcifications present. The aorta is heavily calcified but nonaneurysmal. No central, retroperitoneal or mesenteric lymphadenopathy is identified. Small and large bowel loops are normal in caliber. Appendix is unremarkable. There is no ascites. Bladder is unremarkable. The prostate contains multiple radiation seed implants. There is a fat-containing left inguinal hernia. No definite inguinal or iliac lymphadenopathy is seen. Bony structures demonstrate diffuse osteoblastic metastases throughout the lumbar spine, bony pelvis and proximal femora. IMPRESSION: 1. No evidence of abdominal lymphadenopathy. 2. Diffuse osteoblastic metastatic disease. 3. Fat-containing left inguinal hernia. Dictated by: Dictated on workstation # [id number]
--- NOTE | 2018-10-09 15:07 | Diagnostic Imaging Report ---
INDICATION: Prostate carcinoma. TECHNIQUE: Patient was administered 25.4 mCi technetium 99m MDP intravenously and whole body imaging was performed after three-hour delay. COMPARISON: Correlation is made with prior whole body bone scan from 07/18/2017. FINDINGS: Uptake of activity by the axial and appendicular skeleton is noted. Diffuse uptake of activity involving bilateral ribs as well as the thoracic and lumbar spine as well as pelvis and proximal femora is again seen, consistent with widespread osseous metastatic disease. Overall appearance is similar to prior exam. There is some uptake in the left calvarium, new since prior study. IMPRESSION: Widespread osseous metastatic disease with new uptake in the left calvarium. Dictated by: Dictated on workstation # [id number]
== END ==
LOC: CARD 10:41
PROVIDERS: ATTEND Internal Medicine Hematology & Oncology
DX: C61 Malignant neoplasm of prostate (principal); C79.51 Secondary malignant neoplasm of bone; Z95.1 Presence of aortocoronary bypass graft; Z98.890 Other specified postprocedural states
CPT/HCPCS: 71260; 74177; 78306

== ENCOUNTER → 2018-11-05 | Outpatient (CLI) | payer MEDICARE ==
[~2018-11-05] MED LIST changes: -BUME2TAB3 PO; +BUME2TAB7 PO; -CATHETER FLUSH 10 ML SYR IV PRN; +GADOBUTROL 10 MMOL/10 ML (GADAVIST) VIAL IV ONE
--- NOTE | 2018-11-05 16:52 | Diagnostic Imaging Report ---
CLINICAL INDICATION: Patient states he has low back pain with history of prostate cancer and previous lumbar spine surgery. EXAM: MRI of the lumbar spine performed without and with 10 cc of Gadavist IV contrast. Sagittal T2, sagittal T1, sagittal T1 fat-sat, sagittal STIR, axial T1, axial T2, axial T1 post IV contrast, sagittal T1 post IV contrast, and sagittal T1 fat-sat post IV contrast. COMPARISON: MRI of the lumbar spine without contrast dated 09/06/2012. CT scan of the thoracic and lumbar spine without contrast dated 08/14/2017. FINDINGS: Compared to the prior MRI, there is development of diffuse heterogeneous low T1/T2 signal throughout the visualized axial skeleton. There is also heterogeneous enhancement of the vertebrae, which is most pronounced involving the sacrum, L5, T12, and L1 vertebrae. This correlates to the sclerotic changes on the comparison CT scan consistent with osseous metastatic disease. There is no acute fracture deformity seen as visualized. There are postop changes to the lower lumbar spine with left L3-L4 laminotomy with susceptibility artifact seen along the region. Patient was noted to have these postop changes on comparison CT scan. There is progression of the lumbar spine spurs involving the lumbar spine compared to the prior MRI. L1-L2: There is mild diffuse disc bulge with moderate loss of intervertebral disc height. There is severe right neural foramen narrowing and [id number] left neural foramen narrowing which is stable. Mild central canal narrowing due to prominent posterior epidural fat, which has minimally progressed. L2-L3: There is minimal progression of diffuse disc bulge with severe loss of intervertebral disc height. There is severe bilateral neural foramen narrowing, which has not significantly changed in the interim. There is moderate central canal narrowing which has progressed likely due to facet arthropathy. L3-L4: Again seen diffuse disc bulge with disc spurs extending into the foraminal region with severe bilateral neural foramen narrowing which is stable. There is interval decompression of the thecal sac with mild central canal narrowing. The previously seen severe central canal stenosis has resolved. There is severe bilateral facet arthropathy/hypertrophy again seen. L4-L5: Again seen diffuse disc bulge with severe bilateral facet arthropathy/hypertrophy again seen. There is slight progression of ligamentum flavum buckling and posterior epidural fat. There is moderate central canal stenosis which has slightly progressed. There is severe bilateral neural foramen narrowing which has progressed. L5-S1: There is diffuse disc bulge and moderate loss of intervertebral disc height. There is severe bilateral facet arthropathy/hypertrophy. There is severe bilateral neural foramen narrowing which is stable. There is no significant central canal narrowing. IMPRESSION: 1: Compared to the prior MRI, there is interval development of diffuse osseous metastatic disease. This is seen on comparison CT scan. There is no gross lumbar spine fracture or dislocation. 2: There are interval postop changes with left L3-L4 laminotomy and decompression of the thecal sac with near-resolution of the previously seen severe central canal narrowing at this level. There is now mild central canal narrowing at the L3-L4 level. 3: There is progression of facet arthropathy/ligamentum flavum buckling and posterior epidural fat prominence at the L1-L2 and L4-L5 levels, which causes slight progression of central canal narrowing. 4: The remainder of the lumbar spine degenerative changes are described above. Dictated by: Dictated on workstation # [id number]
== END ==
LOC: RAD 14:25
PROVIDERS: ATTEND Internal Medicine Hematology & Oncology
DX: M48.061 Spinal stenosis, lumbar region without neurogenic claudication (principal); M51.37 Other intervertebral disc degeneration, lumbosacral region; M51.27 Other intervertebral disc displacement, lumbosacral region; M47.816 Spondylosis without myelopathy or radiculopathy, lumbar region; C61 Malignant neoplasm of prostate; C79.51 Secondary malignant neoplasm of bone; Z98.890 Other specified postprocedural states
CPT/HCPCS: 72158

== ENCOUNTER 2018-11-22 10:33 | Day surgery (SDC) | payer MEDICARE ==
[2018-11-22] VITALS (7 sets, daily range): BP systolic 137–166; BP diastolic 66–87
[~2018-11-22] VITALS: Ht 175.3 cm; Wt 103.4 kg
[~2018-11-22 10:33] MED LIST changes: -GADOBUTROL 10 MMOL/10 ML (GADAVIST) VIAL IV ONE
[2018-11-22] MEDS ORDERED: HEParin (CENTRAL IV FLUSH) 500 UNIT/5 ML SYR IV ONE (10:34)
[2018-11-22] MEDS ORDERED: morphine INJ 10 MG/ML 1ML (SYR OR VIAL) IVP PRN ×2 (10:45)
[2018-11-22] MEDS ORDERED: oxyCODONE/APAP 5/325MG (PERCOCET 5) TABLET PO PRN (10:45)
[2018-11-22] MEDS ORDERED: ONDANSETRON 4 MG/2 ML (SDV) Z0FRAN IVP PRN ×2 (10:45→15:45)
[2018-11-22] MEDS ORDERED: ACETAMINOPHEN 325 MG TABLET PO PRN (10:45)
--- NOTE | 2018-11-22 10:45 | Progress Note-Pre Operative ---
Pre-Operative Progress Note H&P Reviewed The H&P was reviewed, patient examined and no changes noted. Date Seen by Provider: Nov 22, 2018 Time Seen by Provider: 10:45 Date H&P Reviewed: Nov 22, 2018 Time H&P Reviewed: 10:45 Pre-Operative Diagnosis: metastatic prostate ca LATASHA MONTEIRO MD Nov 22, 2018 10:45
--- NOTE | 2018-11-22 10:48 | Discharge Inst-Surgical ---
D/C Lap Instructions-CAYETANO New, Converted, or Re-Newed RX: RX on Chart Follow Up PRN Activity as tolerated No driving for 24 hours No driving while on pain medications May access and use port at any time. Regular Diet Symptoms to Report: Fever over 101 degree F, Nausea/Vomiting Infection Signs and Symptoms to report: Increased redness, Foul odor of wound, Increased drainage Bathing instructions: May shower Operative Area Clean/Dry; Keep incision clean/dry If any problems/questions: Contact your physician or go to Emergency Room LATASHA MONTEIRO MD Nov 22, 2018 10:48
[2018-11-22] MEDS ORDERED: LACTATED RINGERS 1,000 ML IV PRN (10:54)
[2018-11-22] MEDS ORDERED: ceFAZolin 2 GM/NS 50 ML IVPB IV ONE (11:30)
[2018-11-22] MEDS ORDERED: MIDAZOLAM 2 MG/2 ML (VERSED) VIAL ONE (13:05)
[2018-11-22] MEDS ORDERED: LIDOCAINE/EPI 1%-1:200,000 (XYLOCAINE) 10 ML VIAL ONE (13:10)
[2018-11-22] MEDS ORDERED: PROPOFOL INJECTION 50 ML IV ONE (13:29)
[2018-11-22] MEDS ORDERED: 0.9% SODIUM CHLORIDE PF INJ 20 ML VIAL ONE (13:52)
[2018-11-22] MEDS ORDERED: MIDAZOLAM 2 MG/2 ML (VERSED) VIAL IVP ONE (14:00)
--- NOTE | 2018-11-22 15:26 | Progress Note-Post Operative ---
Post-Operative Progess Note Surgeon (s)/Mac Developer (s) Surgeon LATASHA MONTEIRO MD Mac Developer: alea dior VISITOR INFORMATION ASSISTANT Pre-Operative Diagnosis metastatic prostate ca Post-Operative Diagnosis same Procedure & Operative Findings Date of Procedure 11/22/18 Procedure Performed/Findings left sc groshong implantable catheter placement under flouroscopy. Anesthesia Type MAC with local Estimated Blood Loss Estimated blood loss (mL): minimal Specimens/Packing Specimens Removed none LATASHA MONTEIRO MD Nov 22, 2018 15:26
[2018-11-22] MEDS ORDERED: morphine INJ 10 MG/ML 1ML (SYR OR VIAL) IVP ONE (15:45)
[2018-11-22] MEDS ORDERED: HYDR-3812 PO (15:54)
--- NOTE | 2018-11-22 16:36 | Diagnostic Imaging Report ---
INDICATION: Status post catheter placement. COMPARISON: 12/04/2013 FINDINGS: Single frontal view of the chest demonstrates normal heart size and pulmonary vascularity. Left-sided subclavian central venous catheter is identified with tip in the SVC. There is no evidence of pneumothorax or large effusion on either side. Lungs are otherwise clear. Sternotomy wires and calcified aortic atherosclerosis are also noted. The visualized osseous structures show no acute abnormalities. IMPRESSION: 1. Left-sided subclavian central venous catheter. No evidence of pneumothorax. Dictated by: Dictated on workstation # [id number]
--- NOTE | 2018-11-22 17:41 | Anesthesia-General Post-Op ---
MAC Patient Condition Mental Status/LOC: Same as Preop Cardiovascular: Satisfactory Nausea/Vomiting: Absent Respiratory: Satisfactory Pain: Controlled Complications: Absent Post Op Complications Complications None Follow Up Care/Instructions Patient Instructions None needed. Anesthesiology Discharge Order Discharge Order Patient is doing well, no complaints, stable vital signs, no apparent adverse anesthesia problems. No complications reported per nursing. MANNY CHILDS CRNA Nov 22, 2018 17:41
--- NOTE | 2018-11-22 18:56 | Diagnostic Imaging Report ---
IMPRESSION: Single fluoroscopic image of the right chest. Fluoroscopic time 67 seconds. Dictated by: Dictated on workstation # [id number]
--- NOTE | 2018-11-23 00:53 | OPERATIVE REPORT ---
DATE OF SERVICE: 11/22/2018 PRIMARY CARE PHYSICIAN: Eitan Angel MD. PREOPERATIVE DIAGNOSIS: Metastatic prostate cancer. POSTOPERATIVE DIAGNOSIS: Metastatic prostate cancer. PROCEDURE: Placement of left subclavian Groshong implantable catheter under fluoroscopy. SURGEON: Latasha Monteiro MD. EXPERIMENTAL MECHANIC SPACECRAFT: Jamir Jung APRN. ANESTHESIA: Monitored anesthesia care with local. ESTIMATED BLOOD LOSS: Minimal. ESTIMATED BLOOD LOSS: Minimal. FINDINGS: Catheter tip at superior vena cava - right atrial junction. DISPOSITION: The patient tolerated the procedure well. INDICATIONS: The patient is a 78-year-old male who is in need of a Groshong implantable catheter for chemotherapy. He was initially diagnosed with prostate cancer in 2002 and underwent radiation seed implantation. He was getting regular laboratory work with PSA, which was normal; however, in 07/2017, he felt weak for several months and he was eventually transferred to [facility] where he was found to have an elevated PSA at 250. He then underwent a PET/CT scan, which did show recurrent prostate cancer as well as metastatic disease within the left brain. DESCRIPTION OF PROCEDURE: The patient was brought to the operating room, laid on the table. After adequate IV pain and sedative medications and monitored anesthesia care, the chest and neck were prepped and draped in standard surgical fashion. A 1% lidocaine with epinephrine was then used to anesthetize the left subclavian region. The left subclavian vein was then cannulated with drawing of venous blood. A guidewire was then inserted under fluoroscopy. The cannulating needle removed and a skin incision made using a 15-blade. The dilator and sheath were then placed over the guidewire under fluoroscopy. The guidewire and dilator were then removed and the catheter was placed through the sheath until the catheter tip was at the superior vena cava - right atrial junction and then the sheath was removed. The inner wire within the catheter was then removed. Catheter cut down to size, the port placed onto the catheter. Subcutaneous chest reservoir was then created. Skin incision was extended laterally using a 15-blade and a plane created between the subcutaneous fat and the anterior pectoralis fascia using blunt dissection as well as electrocautery with visualization of good hemostasis. The port was then placed into the anterior chest reservoir and sutured to the anterior pectoralis fascia using interrupted 3-0 Vicryl sutures. The subcutaneous tissue was then reapproximated using 3-0 Vicryl interrupted sutures and the skin was closed using 4-0 Monocryl running subcuticular suture. Wound was then cleaned and covered with Dermabond. The patient tolerated the procedure well. We will get a post-procedure chest x-ray, and once there was confirmation of placement of the catheter, the port may be accessed and used any time. Job ID: [id number] DocumentID: [id number] Dictated Date: 11/22/2018 15:25:41 Cna Date: 11/23/2018 00:53:01 Dictated By: LATASHA MONTEIRO MD
== END 2018-11-22 16:45 | disposition home or self-care (01) ==
LOC: SDC 10:33
PROVIDERS: ATTEND Surgery
DX: C61 Malignant neoplasm of prostate (principal); E78.00 Pure hypercholesterolemia, unspecified; M19.90 Unspecified osteoarthritis, unspecified site; I25.10 Atherosclerotic heart disease of native coronary artery without angina pectoris; I11.0 Hypertensive heart disease with heart failure; I50.9 Heart failure, unspecified; G62.9 Polyneuropathy, unspecified; G81.94 Hemiplegia, unspecified affecting left nondominant side; Z92.3 Personal history of irradiation; Z95.1 Presence of aortocoronary bypass graft; Z88.8 Allergy status to other drugs, medicaments and biological substances; Z79.82 Long term (current) use of aspirin; Z79.52 Long term (current) use of systemic steroids; Z79.899 Other long term (current) drug therapy; Z87.891 Personal history of nicotine dependence; Z82.3 Family history of stroke; Z80.1 Family history of malignant neoplasm of trachea, bronchus and lung; Z80.3 Family history of malignant neoplasm of breast
CPT/HCPCS: 71045; 87081

== ENCOUNTER 2018-12-20 12:50 | Outpatient (RCR) | payer MEDICARE ==
[2018-09-27 15:00] LABS: BASOPHILS % (AUTO) 0 % (0-10); EOSINOPHILS # (AUTO) 0.1 10^3/uL (0.0-0.3); EOSINOPHILS % (AUTO) 1 % (0-10); HEMATOCRIT 36 % (40-54); HEMOGLOBIN 11.7 G/DL (13.3-17.7); LYMPHOCYTES # (AUTO) 2.2 X 10^3 (1.0-4.0); LYMPHOCYTES % (AUTO) 28 % (12-44); MEAN CORPUSCULAR HEMOGLOBIN 28 PG (25-34); MEAN CORPUSCULAR HGB CONC 32 G/DL (32-36); MEAN CORPUSCULAR VOLUME 86 FL (80-99); MEAN PLATELET VOLUME 9.8 FL (7.4-10.4); MONOCYTES # (AUTO) 0.5 X 10^3 (0.0-1.0); MONOCYTES % (AUTO) 7 % (0-12); NEUTROPHILS # (AUTO) 4.9 X 10^3 (1.8-7.8); NEUTROPHILS % (AUTO) 64 % (42-75); PLATELET COUNT 198 10^3/uL (130-400); RED CELL DISTRIBUTION WIDTH 15.5 % (10.0-14.5); WHITE BLOOD COUNT 7.7 10^3/uL (4.3-11.0)
[2018-09-27 15:19] LABS: ALANINE AMINOTRANSFERASE 12 U/L (0-55); ALBUMIN 4.3 GM/DL (3.2-4.5); ALKALINE PHOSPHATASE 238 U/L (40-136); BILIRUBIN,TOTAL 0.3 MG/DL (0.1-1.0); BUN/CREATININE RATIO 34; CALCIUM 9.6 MG/DL (8.5-10.1); CARBON DIOXIDE 30 MMOL/L (21-32); CHLORIDE 99 MMOL/L (98-107); CREATININE SERUM 1.16 MG/DL (0.60-1.30); GFR ESTIMATED > 60; GLUCOSE 98 MG/DL (70-105); POTASSIUM 4.6 MMOL/L (3.6-5.0); SODIUM 138 MMOL/L (135-145)
[2018-11-15 15:04] LABS: BASOPHILS % (AUTO) 0 % (0-10); EOSINOPHILS # (AUTO) 0.1 10^3/uL (0.0-0.3); EOSINOPHILS % (AUTO) 1 % (0-10); HEMATOCRIT 35 % (40-54); HEMOGLOBIN 10.9 G/DL (13.3-17.7); LYMPHOCYTES % (AUTO) 27 % (12-44); MEAN CORPUSCULAR HEMOGLOBIN 27 PG (25-34); MEAN CORPUSCULAR HGB CONC 31 G/DL (32-36); MEAN CORPUSCULAR VOLUME 88 FL (80-99); MEAN PLATELET VOLUME 9.2 FL (7.4-10.4); MONOCYTES # (AUTO) 0.4 X 10^3 (0.0-1.0); MONOCYTES % (AUTO) 5 % (0-12); NEUTROPHILS % (AUTO) 67 % (42-75); PLATELET COUNT 320 10^3/uL (130-400); RED CELL DISTRIBUTION WIDTH 15.3 % (10.0-14.5); WHITE BLOOD COUNT 7.4 10^3/uL (4.3-11.0)
[2018-11-15 15:29] LABS: ALANINE AMINOTRANSFERASE 15 U/L (0-55); ALBUMIN 3.8 GM/DL (3.2-4.5); ALKALINE PHOSPHATASE 381 U/L (40-136); BILIRUBIN,TOTAL 0.2 MG/DL (0.1-1.0); BUN/CREATININE RATIO 26; CARBON DIOXIDE 30 MMOL/L (21-32); CHLORIDE 100 MMOL/L (98-107); GFR ESTIMATED > 60; GLUCOSE 163 MG/DL (70-105); POTASSIUM 4.1 MMOL/L (3.6-5.0); SODIUM 141 MMOL/L (135-145); TOTAL PROTEIN 6.5 GM/DL (6.4-8.2)
[2018-11-28 09:24] LABS: BASOPHILS % (AUTO) 0 % (0-10); EOSINOPHILS % (AUTO) 0 % (0-10); HEMATOCRIT 35 % (40-54); HEMOGLOBIN 11.2 G/DL (13.3-17.7); LYMPHOCYTES # (AUTO) 1.6 X 10^3 (1.0-4.0); LYMPHOCYTES % (AUTO) 17 % (12-44); MEAN CORPUSCULAR HEMOGLOBIN 27 PG (25-34); MEAN CORPUSCULAR HGB CONC 32 G/DL (32-36); MEAN CORPUSCULAR VOLUME 85 FL (80-99); MEAN PLATELET VOLUME 9.8 FL (7.4-10.4); MONOCYTES # (AUTO) 0.6 X 10^3 (0.0-1.0); MONOCYTES % (AUTO) 6 % (0-12); NEUTROPHILS # (AUTO) 7.3 X 10^3 (1.8-7.8); NEUTROPHILS % (AUTO) 77 % (42-75); PLATELET COUNT 208 10^3/uL (130-400); RED CELL DISTRIBUTION WIDTH 15.8 % (10.0-14.5); WHITE BLOOD COUNT 9.5 10^3/uL (4.3-11.0)
[2018-11-28 09:49] LABS: ALANINE AMINOTRANSFERASE 10 U/L (0-55); ALBUMIN 4.1 GM/DL (3.2-4.5); ALKALINE PHOSPHATASE 511 U/L (40-136); BILIRUBIN,TOTAL 0.2 MG/DL (0.1-1.0); BUN/CREATININE RATIO 34; CALCIUM 9.3 MG/DL (8.5-10.1); CARBON DIOXIDE 25 MMOL/L (21-32); CHLORIDE 102 MMOL/L (98-107); CREATININE SERUM 0.89 MG/DL (0.60-1.30); GFR ESTIMATED > 60; GLUCOSE 91 MG/DL (70-105); POTASSIUM 4.5 MMOL/L (3.6-5.0); SODIUM 135 MMOL/L (135-145); TOTAL PROTEIN 6.8 GM/DL (6.4-8.2)
[2018-12-05 11:23] LABS: BASOPHILS % (AUTO) 1 % (0-10); EOSINOPHILS % (AUTO) 1 % (0-10); HEMATOCRIT 34 % (40-54); HEMOGLOBIN 10.8 G/DL (13.3-17.7); LYMPHOCYTES # (AUTO) 1.6 X 10^3 (1.0-4.0); LYMPHOCYTES % (AUTO) 70 % (12-44); MEAN CORPUSCULAR HEMOGLOBIN 27 PG (25-34); MEAN CORPUSCULAR HGB CONC 32 G/DL (32-36); MEAN CORPUSCULAR VOLUME 85 FL (80-99); MEAN PLATELET VOLUME 9.8 FL (7.4-10.4); MONOCYTES # (AUTO) 0.2 X 10^3 (0.0-1.0); MONOCYTES % (AUTO) 8 % (0-12); NEUTROPHILS # (AUTO) 0.5 X 10^3 (1.8-7.8); NEUTROPHILS % (AUTO) 21 % (42-75); PLATELET COUNT 200 10^3/uL (130-400); RED CELL DISTRIBUTION WIDTH 15.1 % (10.0-14.5); WHITE BLOOD COUNT 2.2 10^3/uL (4.3-11.0)
[2018-12-05 11:39] LABS: BUN/CREATININE RATIO 36; CALCIUM 8.9 MG/DL (8.5-10.1); CARBON DIOXIDE 26 MMOL/L (21-32); CHLORIDE 103 MMOL/L (98-107); CREATININE SERUM 0.81 MG/DL (0.60-1.30); GFR ESTIMATED > 60; GLUCOSE 99 MG/DL (70-105); POTASSIUM 4.2 MMOL/L (3.6-5.0); SODIUM 139 MMOL/L (135-145)
[2018-12-13 12:13] LABS: BASOPHILS % (AUTO) 1 % (0-10); EOSINOPHILS # (AUTO) 0.1 10^3/uL (0.0-0.3); EOSINOPHILS % (AUTO) 1 % (0-10); HEMATOCRIT 34 % (40-54); HEMOGLOBIN 10.8 G/DL (13.3-17.7); LYMPHOCYTES # (AUTO) 2.1 X 10^3 (1.0-4.0); LYMPHOCYTES % (AUTO) 52 % (12-44); MEAN CORPUSCULAR HEMOGLOBIN 28 PG (25-34); MEAN CORPUSCULAR HGB CONC 32 G/DL (32-36); MEAN CORPUSCULAR VOLUME 87 FL (80-99); MEAN PLATELET VOLUME 9.3 FL (7.4-10.4); MONOCYTES # (AUTO) 0.6 X 10^3 (0.0-1.0); MONOCYTES % (AUTO) 15 % (0-12); NEUTROPHILS # (AUTO) 1.3 X 10^3 (1.8-7.8); NEUTROPHILS % (AUTO) 31 % (42-75); PLATELET COUNT 232 10^3/uL (130-400); RED CELL DISTRIBUTION WIDTH 15.8 % (10.0-14.5); WHITE BLOOD COUNT 4.1 10^3/uL (4.3-11.0)
[2018-12-13 12:28] LABS: BUN/CREATININE RATIO 28; CALCIUM 8.9 MG/DL (8.5-10.1); CARBON DIOXIDE 26 MMOL/L (21-32); CHLORIDE 103 MMOL/L (98-107); CREATININE SERUM 0.81 MG/DL (0.60-1.30); GFR ESTIMATED > 60; GLUCOSE 94 MG/DL (70-105); SODIUM 137 MMOL/L (135-145)
[~2018-12-20] VITALS: Ht 172.7 cm; Wt 103.0 kg
[~2018-12-20 12:50] MED LIST changes: +LEUPROLIDE 22.5 MG SYRIN(ELIGARD) SQ SCH; +NS IV 1000 ML (CANCER CTR) IV SCH; +ONDANSETRON MDV (CANCER CENTER 16 MG, DEXAMETHASONE INJECTION 10 MG in NS (IVPB) CANCER... IV SCH; +PALONOSETRON HCL 0.25 MG, DEXAMETHASONE INJECTION 10 MG in NS (IVPB) CANCER CENTER 50 ML IV SCH; +ZOLEDRONIC ACID (CANCER CTR) 4 MG in NS (IVPB) CANCER CENTER 100 ML IV SCH
[2018-12-20 13:11] LABS: BASOPHILS % (AUTO) 0 % (0-10); EOSINOPHILS % (AUTO) 0 % (0-10); HEMATOCRIT 33 % (40-54); HEMOGLOBIN 10.5 G/DL (13.3-17.7); LYMPHOCYTES # (AUTO) 1.5 X 10^3 (1.0-4.0); LYMPHOCYTES % (AUTO) 15 % (12-44); MEAN CORPUSCULAR HEMOGLOBIN 27 PG (25-34); MEAN CORPUSCULAR HGB CONC 32 G/DL (32-36); MEAN CORPUSCULAR VOLUME 86 FL (80-99); MEAN PLATELET VOLUME 9.6 FL (7.4-10.4); MONOCYTES # (AUTO) 0.3 X 10^3 (0.0-1.0); MONOCYTES % (AUTO) 3 % (0-12); NEUTROPHILS # (AUTO) 8.4 X 10^3 (1.8-7.8); NEUTROPHILS % (AUTO) 82 % (42-75); PLATELET COUNT 264 10^3/uL (130-400); RED CELL DISTRIBUTION WIDTH 16.4 % (10.0-14.5); WHITE BLOOD COUNT 10.2 10^3/uL (4.3-11.0)
[2018-12-20 13:41] LABS: ALANINE AMINOTRANSFERASE 13 U/L (0-55); ALBUMIN 4.1 GM/DL (3.2-4.5); ALKALINE PHOSPHATASE 388 U/L (40-136); BILIRUBIN,TOTAL 0.2 MG/DL (0.1-1.0); BUN/CREATININE RATIO 31; CALCIUM 9.7 MG/DL (8.5-10.1); CARBON DIOXIDE 25 MMOL/L (21-32); CHLORIDE 105 MMOL/L (98-107); GFR ESTIMATED > 60; GLUCOSE 114 MG/DL (70-105); POTASSIUM 4.8 MMOL/L (3.6-5.0); SODIUM 139 MMOL/L (135-145)
== END 2018-12-26 | disposition home or self-care (01) ==
LOC: ONC 12:50
PROVIDERS: ATTEND Internal Medicine Hematology & Oncology
DX: Z51.11 Encounter for antineoplastic chemotherapy (principal); C61 Malignant neoplasm of prostate; C79.51 Secondary malignant neoplasm of bone; R22.0 Localized swelling, mass and lump, head; R56.9 Unspecified convulsions; R60.1 Generalized edema; I50.9 Heart failure, unspecified; I25.10 Atherosclerotic heart disease of native coronary artery without angina pectoris; F17.210 Nicotine dependence, cigarettes, uncomplicated; I69.344 Monoplegia of lower limb following cerebral infarction affecting left non-dominant side; Z79.82 Long term (current) use of aspirin; Z79.899 Other long term (current) drug therapy; Z95.1 Presence of aortocoronary bypass graft
CPT/HCPCS: 36415; 36591; 80048; 80053; 84153; 85025; 96365; 96367; 96375; 96402; 96413; 99213

== ENCOUNTER → 2019-02-01 | Outpatient (CLI) | payer MEDICARE ==
[~2019-02-01] MED LIST changes: +BARIUM SUSPENSION 2.1% (VANILLA SILQ) 450 ML PO ONE; +CATHETER FLUSH 10 ML SYR IV PRN; +HOLD METFORMIN - RECEIVED CONTRAST 20 ML VIAL IV SCH; +IOHEXOL 350 MG/ML 100 ML (OMNIPAQUE 350) VIAL IV ONE; -LEUPROLIDE 22.5 MG SYRIN(ELIGARD) SQ SCH; +NS 100 ML (IVPB) BAG IV ONE; -NS IV 1000 ML (CANCER CTR) IV SCH; -ONDANSETRON MDV (CANCER CENTER 16 MG, DEXAMETHASONE INJECTION 10 MG in NS (IVPB) CANCER... IV SCH; -PALONOSETRON HCL 0.25 MG, DEXAMETHASONE INJECTION 10 MG in NS (IVPB) CANCER CENTER 50 ML IV SCH; -ZOLEDRONIC ACID (CANCER CTR) 4 MG in NS (IVPB) CANCER CENTER 100 ML IV SCH
--- NOTE | 2019-02-01 12:43 | Diagnostic Imaging Report ---
PROCEDURE: CT chest with contrast, CT abdomen and pelvis with and without contrast. TECHNIQUE: Pre and post intravenous contrast axial imaging of the abdomen and pelvis and post contrast axial imaging of the chest were performed. Auto Exposure Controls were utilized during the CT exam to meet ALARA standards for radiation dose reduction. INDICATION: Prostate carcinoma, on chemotherapy. COMPARISON: Correlation is made with prior CT from 10/09/2018. FINDINGS: CT chest: Changes of median sternotomy are again noted. No axillary lymphadenopathy is seen. No mediastinal or hilar lymphadenopathy is detected. Coronary arterial calcifications are noted. There is no pericardial or pleural fluid identified. No pulmonary nodule or mass is seen. There is some scarring in the left lower lobe. Widespread osteoblastic metastatic disease throughout the axial and appendicular skeleton is noted. IMPRESSION: Stable CT chest since exam from 10/09/2018. No thoracic lymphadenopathy or evidence of pulmonary metastatic disease is identified. There is widespread osseous metastatic disease. CT abdomen and pelvis: No discrete liver mass is identified. The gallbladder is unremarkable. The pancreas and spleen are unremarkable. No adrenal mass is detected. Cortical low densities are noted in both kidneys, largest in lower pole of left kidney consistent with cysts. The aorta is calcified but non-aneurysmal. No central retroperitoneal or mesenteric lymphadenopathy is seen. A mildly prominent lymph node in right common iliac location is noted but stable to perhaps slightly smaller on today's study measuring 2.0 x 1.3 cm compared with 2.1 x 1.5 cm on prior. No internal iliac or obturator lymphadenopathy is seen. No inguinal lymphadenopathy is seen. There are multiple radiation seed implants within the prostate gland. Bladder is unremarkable. There are small fat-containing inguinal hernias bilaterally. Bowel loops are normal caliber. There is no obstruction. There is no free air or free fluid. Widespread osteoblastic metastatic disease is again noted throughout the lumbar spine, pelvis and proximal femora. IMPRESSION: Overall stable CT abdomen and pelvis since exam from 10/09/2018. Widespread osseous metastatic disease is noted. Mildly prominent right common iliac lymph nodes are present and are stable to perhaps slightly smaller on today's study. No new abnormality is seen. Dictated by: Dictated on workstation # [id number]
== END ==
LOC: RAD 11:16
PROVIDERS: ATTEND Internal Medicine Hematology & Oncology
DX: C61 Malignant neoplasm of prostate (principal); C79.51 Secondary malignant neoplasm of bone
CPT/HCPCS: 71260; 74178

== ENCOUNTER → 2019-03-27 | Outpatient (RCR) | payer MEDICARE ==
[2018-12-27 13:17] LABS: BASOPHILS % (AUTO) 0 % (0-10); EOSINOPHILS # (AUTO) 0.1 10^3/uL (0.0-0.3); EOSINOPHILS % (AUTO) 2 % (0-10); HEMATOCRIT 32 % (40-54); HEMOGLOBIN 10.4 G/DL (13.3-17.7); LYMPHOCYTES # (AUTO) 1.9 X 10^3 (1.0-4.0); LYMPHOCYTES % (AUTO) 58 % (12-44); MEAN CORPUSCULAR HEMOGLOBIN 28 PG (25-34); MEAN CORPUSCULAR HGB CONC 32 G/DL (32-36); MEAN CORPUSCULAR VOLUME 86 FL (80-99); MEAN PLATELET VOLUME 10.1 FL (7.4-10.4); MONOCYTES # (AUTO) 0.2 X 10^3 (0.0-1.0); MONOCYTES % (AUTO) 6 % (0-12); NEUTROPHILS # (AUTO) 1.1 X 10^3 (1.8-7.8); NEUTROPHILS % (AUTO) 34 % (42-75); PLATELET COUNT 214 10^3/uL (130-400); RED CELL DISTRIBUTION WIDTH 15.9 % (10.0-14.5); WHITE BLOOD COUNT 3.3 10^3/uL (4.3-11.0)
[2018-12-27 13:32] LABS: BUN/CREATININE RATIO 31; CALCIUM 8.8 MG/DL (8.5-10.1); CARBON DIOXIDE 25 MMOL/L (21-32); CHLORIDE 104 MMOL/L (98-107); CREATININE SERUM 0.89 MG/DL (0.60-1.30); GFR ESTIMATED > 60; GLUCOSE 97 MG/DL (70-105); SODIUM 137 MMOL/L (135-145)
[2019-01-03 12:23] LABS: BASOPHILS % (AUTO) 1 % (0-10); EOSINOPHILS # (AUTO) 0.1 10^3/uL (0.0-0.3); EOSINOPHILS % (AUTO) 3 % (0-10); HEMATOCRIT 34 % (40-54); HEMOGLOBIN 10.8 G/DL (13.3-17.7); LYMPHOCYTES # (AUTO) 2.1 X 10^3 (1.0-4.0); LYMPHOCYTES % (AUTO) 61 % (12-44); MEAN CORPUSCULAR HEMOGLOBIN 27 PG (25-34); MEAN CORPUSCULAR HGB CONC 32 G/DL (32-36); MEAN CORPUSCULAR VOLUME 86 FL (80-99); MEAN PLATELET VOLUME 9.6 FL (7.4-10.4); MONOCYTES # (AUTO) 0.6 X 10^3 (0.0-1.0); MONOCYTES % (AUTO) 16 % (0-12); NEUTROPHILS # (AUTO) 0.6 X 10^3 (1.8-7.8); NEUTROPHILS % (AUTO) 19 % (42-75); PLATELET COUNT 252 10^3/uL (130-400); RED CELL DISTRIBUTION WIDTH 16.5 % (10.0-14.5); WHITE BLOOD COUNT 3.4 10^3/uL (4.3-11.0)
[2019-01-03 12:37] LABS: BUN/CREATININE RATIO 28; CALCIUM 9.1 MG/DL (8.5-10.1); CARBON DIOXIDE 27 MMOL/L (21-32); CHLORIDE 103 MMOL/L (98-107); CREATININE SERUM 0.98 MG/DL (0.60-1.30); GFR ESTIMATED > 60; GLUCOSE 93 MG/DL (70-105); POTASSIUM 4.6 MMOL/L (3.6-5.0); SODIUM 140 MMOL/L (135-145)
[2019-03-04 15:00] LABS: BASOPHILS % (AUTO) 0 % (0-10); EOSINOPHILS # (AUTO) 0.1 10^3/uL (0.0-0.3); EOSINOPHILS % (AUTO) 2 % (0-10); HEMATOCRIT 35 % (40-54); HEMOGLOBIN 11.1 G/DL (13.3-17.7); LYMPHOCYTES # (AUTO) 2.2 X 10^3 (1.0-4.0); LYMPHOCYTES % (AUTO) 35 % (12-44); MEAN CORPUSCULAR HEMOGLOBIN 27 PG (25-34); MEAN CORPUSCULAR HGB CONC 32 G/DL (32-36); MEAN CORPUSCULAR VOLUME 84 FL (80-99); MONOCYTES # (AUTO) 0.5 X 10^3 (0.0-1.0); MONOCYTES % (AUTO) 7 % (0-12); NEUTROPHILS # (AUTO) 3.6 X 10^3 (1.8-7.8); NEUTROPHILS % (AUTO) 56 % (42-75); PLATELET COUNT 196 10^3/uL (130-400); RED CELL DISTRIBUTION WIDTH 16.7 % (10.0-14.5); WHITE BLOOD COUNT 6.3 10^3/uL (4.3-11.0)
[2019-03-04 15:22] LABS: ALANINE AMINOTRANSFERASE 14 U/L (0-55); ALBUMIN 4.2 GM/DL (3.2-4.5); ALKALINE PHOSPHATASE 239 U/L (40-136); BILIRUBIN,TOTAL 0.2 MG/DL (0.1-1.0); BUN/CREATININE RATIO 35; CALCIUM 9.5 MG/DL (8.5-10.1); CARBON DIOXIDE 22 MMOL/L (21-32); CHLORIDE 105 MMOL/L (98-107); CREATININE SERUM 0.83 MG/DL (0.60-1.30); GFR ESTIMATED > 60; GLUCOSE 84 MG/DL (70-105); POTASSIUM 4.6 MMOL/L (3.6-5.0); SODIUM 139 MMOL/L (135-145); TOTAL PROTEIN 6.9 GM/DL (6.4-8.2)
[~2019-03-27] MED LIST changes: -BARIUM SUSPENSION 2.1% (VANILLA SILQ) 450 ML PO ONE; -CATHETER FLUSH 10 ML SYR IV PRN; +DOCETAXEL IV SCH; -HOLD METFORMIN - RECEIVED CONTRAST 20 ML VIAL IV SCH; -IOHEXOL 350 MG/ML 100 ML (OMNIPAQUE 350) VIAL IV ONE; +LEUPROLIDE 22.5 MG SYRIN(ELIGARD) SQ SCH; +NORMAL SALINE IV SCH; -NS 100 ML (IVPB) BAG IV ONE; +NS IV 1000 ML (CANCER CTR) IV SCH; +PALONOSETRON HCL 0.25 MG, DEXAMETHASONE INJECTION 10 MG in NS (IVPB) CANCER CENTER 50 ML IV SCH; +SIMV20TA26 PO; -SIMV20TA3 PO; +ZOLEDRONIC ACID (CANCER CTR) 4 MG in NS (IVPB) CANCER CENTER 100 ML IV SCH
[2019-03-27 13:10] LABS: BASOPHILS % (AUTO) 0 % (0-10); EOSINOPHILS # (AUTO) 0.1 10^3/uL (0.0-0.3); EOSINOPHILS % (AUTO) 1 % (0-10); HEMATOCRIT 34 % (40-54); HEMOGLOBIN 10.8 G/DL (13.3-17.7); LYMPHOCYTES % (AUTO) 32 % (12-44); MEAN CORPUSCULAR HEMOGLOBIN 26 PG (25-34); MEAN CORPUSCULAR HGB CONC 31 G/DL (32-36); MEAN CORPUSCULAR VOLUME 84 FL (80-99); MEAN PLATELET VOLUME 9.3 FL (7.4-10.4); MONOCYTES # (AUTO) 0.4 X 10^3 (0.0-1.0); MONOCYTES % (AUTO) 7 % (0-12); NEUTROPHILS # (AUTO) 3.8 X 10^3 (1.8-7.8); NEUTROPHILS % (AUTO) 60 % (42-75); PLATELET COUNT 270 10^3/uL (130-400); RED CELL DISTRIBUTION WIDTH 16.8 % (10.0-14.5); WHITE BLOOD COUNT 6.3 10^3/uL (4.3-11.0)
[2019-03-27 13:36] LABS: BUN/CREATININE RATIO 34; CALCIUM 9.2 MG/DL (8.5-10.1); CARBON DIOXIDE 26 MMOL/L (21-32); CHLORIDE 103 MMOL/L (98-107); CREATININE SERUM 1.14 MG/DL (0.60-1.30); GFR ESTIMATED > 60; GLUCOSE 136 MG/DL (70-105); POTASSIUM 4.4 MMOL/L (3.6-5.0); SODIUM 142 MMOL/L (135-145)
== END | disposition home or self-care (01) ==
LOC: ONC 12-27 12:13
PROVIDERS: ATTEND Internal Medicine Hematology & Oncology
DX: C61 Malignant neoplasm of prostate (principal); C79.51 Secondary malignant neoplasm of bone; R22.0 Localized swelling, mass and lump, head; R56.9 Unspecified convulsions; R60.1 Generalized edema; I50.9 Heart failure, unspecified; I25.10 Atherosclerotic heart disease of native coronary artery without angina pectoris; F17.210 Nicotine dependence, cigarettes, uncomplicated; I69.344 Monoplegia of lower limb following cerebral infarction affecting left non-dominant side; Z79.82 Long term (current) use of aspirin; Z79.899 Other long term (current) drug therapy; Z95.1 Presence of aortocoronary bypass graft
CPT/HCPCS: 36415; 36591; 80048; 80053; 84153; 85025; 96365; 96375; 96402; 96413; 99213

== ENCOUNTER 2019-06-19 12:36 | Outpatient (RCR) | payer MEDICARE ==
[~2019-06-19 12:36] MED LIST changes: +ACHD5005 PO; -DOCETAXEL IV SCH; -HYDR-3812 PO; -LEUPROLIDE 22.5 MG SYRIN(ELIGARD) SQ SCH; -NORMAL SALINE IV SCH; -NS IV 1000 ML (CANCER CTR) IV SCH; -PALONOSETRON HCL 0.25 MG, DEXAMETHASONE INJECTION 10 MG in NS (IVPB) CANCER CENTER 50 ML IV SCH; -ZOLEDRONIC ACID (CANCER CTR) 4 MG in NS (IVPB) CANCER CENTER 100 ML IV SCH
[2019-06-19 13:17] LABS: BASOPHILS % (AUTO) 0 % (0-10); EOSINOPHILS # (AUTO) 0.1 10^3/uL (0.0-0.3); EOSINOPHILS % (AUTO) 1 % (0-10); HEMATOCRIT 36 % (40-54); HEMOGLOBIN 11.2 G/DL (13.3-17.7); LYMPHOCYTES # (AUTO) 2.5 X 10^3 (1.0-4.0); LYMPHOCYTES % (AUTO) 43 % (12-44); MEAN CORPUSCULAR HEMOGLOBIN 26 PG (25-34); MEAN CORPUSCULAR HGB CONC 31 G/DL (32-36); MEAN CORPUSCULAR VOLUME 82 FL (80-99); MEAN PLATELET VOLUME 9.9 FL (7.4-10.4); MONOCYTES # (AUTO) 0.6 X 10^3 (0.0-1.0); MONOCYTES % (AUTO) 10 % (0-12); NEUTROPHILS # (AUTO) 2.6 X 10^3 (1.8-7.8); NEUTROPHILS % (AUTO) 46 % (42-75); PLATELET COUNT 221 10^3/uL (130-400); RED CELL DISTRIBUTION WIDTH 18.1 % (10.0-14.5); WHITE BLOOD COUNT 5.7 10^3/uL (4.3-11.0)
[2019-06-19 13:27] LABS: ALBUMIN 4.2 GM/DL (3.2-4.5); CHLORIDE 104 MMOL/L (98-107); POTASSIUM 4.3 MMOL/L (3.6-5.0); SODIUM 139 MMOL/L (135-145)
[2019-06-19 13:28] LABS: CALCIUM 9.6 MG/DL (8.5-10.1)
[2019-06-19 13:29] LABS: GLUCOSE 98 MG/DL (70-105)
[2019-06-19 13:30] LABS: CARBON DIOXIDE 22 MMOL/L (21-32)
[2019-06-19 13:31] LABS: BILIRUBIN,TOTAL 0.3 MG/DL (0.1-1.0)
[2019-06-19 13:32] LABS: ALKALINE PHOSPHATASE 339 U/L (40-136)
[2019-06-19 13:33] LABS: CREATININE SERUM 0.95 MG/DL (0.60-1.30); GFR ESTIMATED > 60
[2019-06-19 13:34] LABS: BUN/CREATININE RATIO 29
[2019-06-19 13:36] LABS: ALANINE AMINOTRANSFERASE 8 U/L (0-55)
[2019-06-19] MEDS ORDERED: ZOLEDRONIC ACID (CANCER CTR) 4 MG in NS (IVPB) CANCER CENTER 100 ML IV SCH (15:49)
[2019-06-19] MEDS ORDERED: LEUPROLIDE 22.5 MG SYRIN(ELIGARD) SQ SCH (15:49)
[2019-07-05] MEDS ORDERED: OLME40TA18 PO (10:05)
[2019-07-05] MEDS ORDERED: ENZA40CA PO (10:05)
[2019-07-05] MEDS ORDERED: CHLO4TAB36 PO (10:05)
[2019-07-05] MEDS ORDERED: SPIR25TA PO (10:05)
[2019-07-05] MEDS ORDERED: NAPR-1033 PO (10:05)
== END 2019-07-23 | disposition home or self-care (01) ==
LOC: ONC 12:36
PROVIDERS: ATTEND Internal Medicine Hematology & Oncology
DX: C61 Malignant neoplasm of prostate (principal); C79.51 Secondary malignant neoplasm of bone; R56.9 Unspecified convulsions; R60.1 Generalized edema; I50.9 Heart failure, unspecified; I25.10 Atherosclerotic heart disease of native coronary artery without angina pectoris; F17.210 Nicotine dependence, cigarettes, uncomplicated; I69.344 Monoplegia of lower limb following cerebral infarction affecting left non-dominant side; Z79.82 Long term (current) use of aspirin; Z79.899 Other long term (current) drug therapy; Z95.1 Presence of aortocoronary bypass graft
CPT/HCPCS: 36591; 80053; 84153; 85025; 96365; 96402

== ENCOUNTER → 2019-06-20 | Outpatient (CLI) | payer MEDICARE ==
[~2019-06-20] MED LIST changes: +GADOBUTROL 10 MMOL/10 ML (GADAVIST) VIAL IV ONE
--- NOTE | 2019-06-20 11:27 | Diagnostic Imaging Report ---
PROCEDURE: MR imaging of the brain with and without contrast. TECHNIQUE: Multiplanar, multisequence MR imaging of the brain was performed with and without contrast. INDICATION: Seizure. Difficulty walking. COMPARISON: MRI brain on 07/25/2017. Findings: There is stable appearance of the focal area of T2 hyperintense signal involving the superior aspect of the right frontal lobe near the vertex. Minimal associated enhancement is seen in this area. No new focal areas of enhancement are seen in the brain. 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 No acute ischemia or hemorrhage. The ventricles and cortical sulci are diffusely prominent. The basilar cisterns are patent.. The sellar and suprasellar regions have a normal appearance. The bilateral hippocampi are symmetric. No evidence of mesial temporal sclerosis. The brainstem and posterior fossa are unremarkable. The paranasal sinuses and mastoid air cells demonstrate normal signal characteristics. Bilateral lens implants are noted. The globes and orbits are symmetric and unremarkable. The scalp and calvarium have a normal appearance. Impression: 1. No acute ischemia or hemorrhage. 2. Stable appearance of the masslike T2 hyperintense signal within the superior aspect of the right frontal lobe with stable minimal associated enhancement. 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 Recommend followup as indicated. 3. 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 4. No evidence of mesial temporal sclerosis. Dictated by: Dictated on workstation # [id number]
--- NOTE | 2019-06-20 12:45 | Diagnostic Imaging Report ---
PROCEDURE: MRI lumbar spine with and without contrast. TECHNIQUE: Multiplanar, multisequence MRI of the lumbar spine was performed with and without contrast. INDICATION: History of bone cancer. Seizures. COMPARISON: 11/05/2018 FINDINGS: For the purposes of this exam, last well-formed disc space is noted at the L5-S1 level. Note is made of rudimentary disc at S1-S2. Static alignment is unremarkable. There is no significant anteroretrolisthesis. There is no evidence of jumped facets. Vertebral body heights are maintained. There is no evidence of acute fracture. Note is again made of diffuse marrow signal heterogeneity with multiple osseous masses. This is consistent with appearance seen on prior exam dated 11/05/2018. Postcontrast images show expected diffuse heterogeneous osseous enhancement as well. There is multilevel intervertebral disc height loss with multilevel anterior and posterior disc bulges. Visualized portions of distal cord are unremarkable. There is no evidence of abnormal cord enhancement. No abnormal intrathecal filling defects are seen. There is mild narrowing of the thecal sac at the level of L5 and S1, this is felt to be due to interval progression of benign epidural fat prominence, no enhancing masses are identified. Pre and paravertebral soft tissue structures are unremarkable. Otherwise, axial images demonstrate the following: T12-L1: There is bilateral facet arthropathy, but no large disc bulge or focal protrusion. There is no significant spinal canal or neuroforaminal stenosis. L1-L2: There is bilateral facet arthropathy and mild ligament flavum laxity. There is also slight posterior disc bulge. As result, there is minimal narrowing of the spinal canal and mild narrowing of bilateral neural foramen. L2-L3: There is broad-based posterior disc bulge and bilateral facet arthropathy. As result, there is mild narrowing of the spinal canal and moderate narrowing of bilateral neural foramen. L3-L4: There is broad-based posterior disc bulge and bilateral inferior maxillary facet arthropathy. As result, there is moderate narrowing of the spinal canal and bilateral neural foramen. L4-L5: There is broad-based posterior disc bulge and bilateral inflamed laxity and facet arthropathy as well as dural thickening as described above. As result, there is severe thecal sac stenosis and mild to moderate narrowing of bilateral neural foramen. L5-S1: There is bilateral facet arthropathy. Again, there is also dural thickening. This does result in severe stenosis of the thecal sac and mild narrowing of bilateral neural foramen. IMPRESSION:. 1. Redemonstration extensive osteoblastic metastatic disease. No new cord enhancement or evidence of intrathecal metastasis. 2. No acute fracture or dislocation lumbar spine 3. Moderate multilevel degenerative changes. Dictated by: Dictated on workstation # [id number]
== END ==
LOC: RAD 09:20
PROVIDERS: ATTEND Internal Medicine Hematology & Oncology
DX: C41.9 Malignant neoplasm of bone and articular cartilage, unspecified (principal); M47.816 Spondylosis without myelopathy or radiculopathy, lumbar region; G93.89 Other specified disorders of brain; R56.9 Unspecified convulsions
CPT/HCPCS: 70553; 72158

== ENCOUNTER → 2019-06-25 | Outpatient (CLI) | payer MEDICARE ==
[~2019-06-25] MED LIST changes: +BARIUM SUSPENSION 2.1% (VANILLA SILQ) 450 ML PO ONE; +CATHETER FLUSH 10 ML SYR IV PRN; -GADOBUTROL 10 MMOL/10 ML (GADAVIST) VIAL IV ONE; +HOLD METFORMIN - RECEIVED CONTRAST 20 ML VIAL IV SCH; +IOHEXOL 350 MG/ML 100 ML (OMNIPAQUE 350) VIAL IV ONE; +NS 100 ML (IVPB) BAG IV ONE
--- NOTE | 2019-06-25 10:50 | Diagnostic Imaging Report ---
EXAM: Nuclear Medicine whole body bone scan. DATE: June 25, 2019. INDICATION: 78-year-old male, history of prostate cancer. Evaluation for bone metastasis. COMPARISON: Nuclear Medicine whole body bone scan October 09, 2018. MRI lumbar spine June 20, 2019. CT chest/abdomen/pelvis February 01, 2019. MRI brain June 20, 2019. TECHNIQUE: 23.50 mCi of technetium labeled MDP radiotracer was administered. Delayed subsequent whole-body bone scan images were obtained. Additional targeted projections of the skull and both ribs were obtained and provided. FINDINGS: There is abnormal radiotracer uptake in the right and left proximal femurs including in the regions of the femoral heads, femoral necks, intertrochanteric femurs, and proximal to mid femoral diaphysis bilaterally. There also does appear to be radiotracer uptake in the region of the ischium bilaterally as well as involving the iliac bones. There is radiotracer activity in the urinary bladder which does obscure visualization of adjacent structures. The radiotracer activity involving the pelvis is also present on the prior exam and appears fairly similar. There is a radiotracer avid lesion in the region of the sternum near the left sternoclavicular joint which is more prominent since the prior exam. There are multiple foci of radiotracer activity involving the ribs bilaterally with some new areas of radiotracer uptake involving left-sided ribs. There is radiotracer activity along the posterior aspect of the skull which is a change since the prior bone scan. There are small foci of radiotracer activity along the spine. IMPRESSION: 1. New radiotracer avid lesion involving the posterior skull, likely relating to a new bone metastasis. 2. Redemonstrated multiple radiotracer avid foci involving bilateral ribs with new radiotracer avid foci involving the left-sided ribs. This likely relates to bone metastasis. 3. Extensive areas of radiotracer uptake at the level of the pelvis and bilateral proximal femurs as detailed above, likely relating to extensive bone metastasis, with a fairly similar appearance since the prior bone scan. 4. There are numerous additional metastatic lesions correlating with prior cross-sectional imaging although some lesions are not particularly radiotracer avid. Dictated by: Dictated on workstation # [id number]
--- NOTE | 2019-06-25 11:30 | Diagnostic Imaging Report ---
EXAMINATION: CT Chest with intravenous contrast, CT Abdomen and Pelvis without and with intravenous contrast. TECHNIQUE: Pre and post intravenous contrast axial imaging of the abdomen and pelvis and post contrast axial imaging of the chest were performed. All CT scans use one or more of the following dose optimizing techniques: automated exposure control, MA and/or KvP adjustment based on a patient size and exam type, or iterative reconstruction. HISTORY: Prostate cancer. COMPARISON: 02/01/2019. FINDINGS: There is no edema or pneumonia. No pleural effusion. No pneumothorax. No suspicious nodules. The heart size is normal. There are severe coronary artery calcifications. No pericardial effusion. The aorta is normal in caliber. There is no axillary or supraclavicular lymphadenopathy. There is no mediastinal lymphadenopathy. There has been a median sternotomy for coronary artery bypass grafting. The liver is normal without focal lesion. There is no biliary ductal dilation. The gallbladder is normal. The pancreas is normal. The spleen is normal. The adrenal glands are normal. Multiple areas of cortical scarring are seen in the kidneys, unchanged. There are simple cysts in the kidneys as well. No suspicious renal lesions are seen. There is no hydronephrosis. The urinary bladder is normal. Radiation therapy markers are present within the prostate. Intermediate attenuation within the right inguinal canal may represent an undescended testicle. The visualized bowel is normal in caliber without obstruction or inflammation. No free fluid or air. The right external iliac lymph node measuring 13 mm in short axis is unchanged. The aorta is normal in caliber without aneurysm. There is widespread osseous metastatic disease replacing the majority of the skeleton. There are unchanged moderate T8 and T3 compression fractures. The osseous metastatic disease appears unchanged although comparison is difficult due to the diffuse infiltrative nature of the disease. IMPRESSION: 1. Stable widespread osseous metastatic disease. 2. Stable mildly enlarged right external iliac lymph node. 3. Possibly undescended right testicle. Dictated by: Dictated on workstation # [id number]
== END ==
LOC: CARD 07:04
PROVIDERS: ATTEND Internal Medicine Hematology & Oncology
DX: C61 Malignant neoplasm of prostate (principal); C79.51 Secondary malignant neoplasm of bone; R59.0 Localized enlarged lymph nodes
CPT/HCPCS: 71260; 74178; 78306

== ENCOUNTER 2019-07-05 09:18 | Outpatient (CLI) | payer MEDICARE ==
[2019-07-05] VITALS (12 sets, daily range): BP systolic 97–148; BP diastolic 56–83
[~2019-07-05] VITALS: Ht 172.7 cm; Wt 102.3 kg
[~2019-07-05 09:18] MED LIST changes: -BARIUM SUSPENSION 2.1% (VANILLA SILQ) 450 ML PO ONE; -CATHETER FLUSH 10 ML SYR IV PRN; -HOLD METFORMIN - RECEIVED CONTRAST 20 ML VIAL IV SCH; -IOHEXOL 350 MG/ML 100 ML (OMNIPAQUE 350) VIAL IV ONE; -NS 100 ML (IVPB) BAG IV ONE
[2019-07-05 09:58] LABS: HEMOGLOBIN 10.2 G/DL (13.3-17.7); MEAN PLATELET VOLUME 9.1 FL (7.4-10.4); RED CELL DISTRIBUTION WIDTH 17.9 % (10.0-14.5); WHITE BLOOD COUNT 4.5 10^3/uL (4.3-11.0)
[2019-07-05] MEDS ORDERED: NAPR-1033 PO (10:05)
[2019-07-05] MEDS ORDERED: CHLO4TAB36 PO (10:05)
[2019-07-05] MEDS ORDERED: ENZA40CA PO (10:05)
[2019-07-05] MEDS ORDERED: OLME40TA18 PO (10:05)
[2019-07-05] MEDS ORDERED: SPIR25TA PO (10:05)
[2019-07-05 10:06] LABS: PROTHROMBIN TIME PATIENT 13.1 SEC (12.2-14.7)
[2019-07-05] MEDS ORDERED: MIDAZOLAM 2 MG/2 ML (VERSED) VIAL IVP ONE (10:15)
[2019-07-05] MEDS ORDERED: NS IV 1000 ML 1,000 ML IV STA (10:15)
[2019-07-05] MEDS ORDERED: LIDOCAINE 1% INJ 20 ML 20 ML VIAL INJ ONE (10:15)
[2019-07-05] MEDS ORDERED: fentaNYL INJECTION 100 MCG/2 ML AMP IVP ONE (10:15)
[2019-07-05] MEDS ORDERED: NS IV 1000 ML 1,000 ML ONE (10:18)
[2019-07-05] MEDS ORDERED: MIDAZOLAM 2 MG/2 ML (VERSED) VIAL ONE (10:18)
[2019-07-05] MEDS ORDERED: fentaNYL INJECTION 100 MCG/2 ML AMP ONE (10:18)
[2019-07-05] MEDS ORDERED: HYDROcodone/APAP 5 MG/325 MG (LORTAB) TAB PO PRN (11:30)
--- NOTE | 2019-07-05 11:46 | Diagnostic Imaging Report ---
INDICATION: Prostate carcinoma. EXAM: Patient presents for CT-guided bone biopsy. The patient is brought to the CT suite, placed on the table in the prone position. Axial imaging through the pelvis was performed to evaluate appropriate entry site. The skin was prepped and draped in the usual sterile fashion. The study was performed utilizing conscious sedation with radiology nursing and constipation monitoring. Patient was administered a total of 50 mcg of fentanyl and 1 mg of Versed intravenously. Total procedure time was 5 minutes. Bone biopsy needle was advanced and placed with its tip along the posterior cortex of the right iliac bone. Bone marrow drill was utilized to advance the needle beyond the cortex. Inner stylette was removed. Bone marrow drill was utilized to obtain a core biopsy of the sclerotic lesion in the right iliac bone. The needle was withdrawn and hemostasis was obtained. The patient tolerated the procedure well and left the department in stable condition. IMPRESSION: Successful CT-guided core biopsy of a sclerotic lesion in the right iliac bone, utilizing conscious sedation. Pathology results are currently pending. TECHNIQUE: All CT scans use one or more of the following dose optimizing techniques: automated exposure control, MA and/or KvP adjustment based on a patient size and exam type, or iterative reconstruction. Dictated by: Dictated on workstation # [id number]
--- NOTE | 2019-07-05 12:43 | Pre-Op Note & Conscious Sedat ---
Pre-Operative Progress Note H&P Reviewed The H&P was reviewed, patient examined and no changes noted. Date H&P Reviewed: Jul 05, 2019 Time H&P Reviewed: 10:00 Pre-Op Diagnosis: Prostate cancer Conscious Sedation Pre-Proced Time 10:00 ASA Score 2 For ASA 3 and 4: Consider anesthesia and medical clearance. Also, for patients with a history of failed moderate sedation consider anesthesia. Airway Lungs Heart ASA score ASA 1: a normal healthy patient ASA 2: a patient with a mild systemic disease (mid diabetes, controlled hypertension, obesity ASA 3: a patient with a severe systemic disease that limits activity (angina, COPD, prior Myocardial infarction) ASA 4: a patient with an incapacitating disease that is a constant threat to life (CHF, renal failure) ASA 5: a moribund patient not expected to survive 24 hrs. (ruptured aneurysm) ASA 6: a declared brain- patient whose organs are being harvested. For emergent operations, add the letter E after the classification Mallampati Classification Grade 2 Sedation Plan Analgesia, Amnesia, Plan communicated to team members, Discussed options with patient/fam, Discussed risks with patient/fam The patient is an appropriate candidate to undergo the planned procedure, sedation, and anesthesia. The patient immediately re-assessed prior to indication. NOBLE PENA MD Jul 05, 2019 12:43
== END 2019-07-05 13:35 | disposition home or self-care (01) ==
LOC: SDC 09:18
PROVIDERS: ATTEND Internal Medicine Hematology & Oncology
DX: C61 Malignant neoplasm of prostate (principal); C79.51 Secondary malignant neoplasm of bone; R97.21 Rising PSA following treatment for malignant neoplasm of prostate; I25.10 Atherosclerotic heart disease of native coronary artery without angina pectoris; I50.9 Heart failure, unspecified; G40.909 Epilepsy, unspecified, not intractable, without status epilepticus; F17.210 Nicotine dependence, cigarettes, uncomplicated; Z86.73 Personal history of transient ischemic attack (TIA), and cerebral infarction without residual deficits; Z95.1 Presence of aortocoronary bypass graft
CPT/HCPCS: 36415; 77012; 85027; 85610; 99156

== ENCOUNTER 2019-08-14 13:39 | Inpatient (IN) | payer MEDICARE ==
[~2019-08-14] VITALS: Ht 175.3 cm; Wt 102.0 kg
[~2019-08-14 13:39] MED LIST changes: +CHLO4TAB36 PO; +ENZA40CA PO; +NAPR-1033 PO; +SPIR25TA PO
[2019-08-14] MEDS ORDERED: SODIUM CHLORIDE IV SCH ×4 (14:15→16:30)
[2019-08-14] MEDS ORDERED: DEXTROSE IV SCH ×4 (14:15→16:30)
[2019-08-14] MEDS ORDERED: PANTOPRAZOLE 40 MG (PROTONIX) VIAL IV NR (14:15)
[2019-08-14] MEDS ORDERED: CATHETER FLUSH 10 ML SYR IV PRN (14:30)
--- NOTE | 2019-08-14 14:36 | NUR ---
GABBY LOJA JR admitted to room 417-1, with an admitting diagnosis of GENERAL WEAKNESS, on 08/14/19 from HOME, accompanied by .GABBY LOJA JR introduced to surroundings, call light, bed controls, phone, TV, temperature control, lights, meal times, smoking policy, visitor policy, side rail policy, bathrooms and showers. Patient Rights given to patient in the handbook. GABBY LOJA JR verbalizes understanding that [facility] is not responsible for the loss or damage to any personal effects or valuables that are kept in the patients possession during their hospitalization. The following Patient Care Plans were discussed with the PATIENT: Discharge Planning, ACTIVITY TOLERANCE,FALL PRECAUTIONS, and RISK FOR INJURY. GABBY LOJA JR verbalizes understanding of Interdisciplinary Patient Education.
[2019-08-14 14:37] VITALS: BP 120/68
[2019-08-14 15:17] LABS: BASOPHILS % (AUTO) 0 % (0-10); EOSINOPHILS % (AUTO) 0 % (0-10); HEMATOCRIT 29 % (40-54); HEMOGLOBIN 9.2 G/DL (13.3-17.7); LYMPHOCYTES # (AUTO) 1.1 X 10^3 (1.0-4.0); LYMPHOCYTES % (AUTO) 35 % (12-44); MEAN CORPUSCULAR HEMOGLOBIN 26 PG (25-34); MEAN CORPUSCULAR HGB CONC 32 G/DL (32-36); MEAN CORPUSCULAR VOLUME 81 FL (80-99); MEAN PLATELET VOLUME 9.6 FL (7.4-10.4); MONOCYTES # (AUTO) 0.3 X 10^3 (0.0-1.0); MONOCYTES % (AUTO) 10 % (0-12); NEUTROPHILS # (AUTO) 1.8 X 10^3 (1.8-7.8); NEUTROPHILS % (AUTO) 55 % (42-75); PLATELET COUNT 204 10^3/uL (130-400); RED CELL DISTRIBUTION WIDTH 20.4 % (10.0-14.5); WHITE BLOOD COUNT 3.2 10^3/uL (4.3-11.0)
--- NOTE | 2019-08-14 15:20 | NUR ---
CALLED DR. COURTNEY WITH CRITICAL LEVELS;POTASSIUM 2.0;GLUCOSE 57;CALCIUM 4.0. ORDERS RECEIVED TO REPLACE AND RETEST IN AM
[2019-08-14 15:27] LABS: ALBUMIN 1.6 GM/DL (3.2-4.5); CHLORIDE 126 MMOL/L (98-107); SODIUM 144 MMOL/L (135-145)
[2019-08-14 15:30] LABS: CARBON DIOXIDE 12 MMOL/L (21-32); TOTAL PROTEIN 2.7 GM/DL (6.4-8.2)
[2019-08-14 15:31] LABS: BILIRUBIN,TOTAL 0.1 MG/DL (0.1-1.0)
[2019-08-14 15:33] LABS: ALKALINE PHOSPHATASE 230 U/L (40-136); CREATININE SERUM 0.56 MG/DL (0.60-1.30); GFR ESTIMATED > 60
[2019-08-14 15:34] LABS: BUN/CREATININE RATIO 38; GLUCOSE 57 MG/DL (70-105)
[2019-08-14 15:36] LABS: ALANINE AMINOTRANSFERASE 40 U/L (0-55)
[2019-08-14] MEDS ORDERED: CHOL20003 PO (15:58)
[2019-08-14] MEDS ORDERED: OMEG-177 PO (15:58)
[2019-08-14] MEDS ORDERED: HYDR-83 PO (15:58)
[2019-08-14] MEDS ORDERED: ASCO10006 PO (15:58)
[2019-08-14] MEDS ORDERED: [UNRECOGNIZED DRUG - CODE] IV (16:06)
[2019-08-14 16:08] VITALS: BP 107/63
[2019-08-14] MEDS ORDERED: D5 NS 1000 ML IV SOLUTION 1,000 ML IV SCH ×2 (16:30→21:30)
--- NOTE | 2019-08-14 16:32 | NUR ---
CALLED DR. COURTNEY FOR CRITICAL MAG LEVEL OF 1.0. ORDERS TO REPLACE AND RETEST IN AM
[2019-08-14] MEDS: POTASSIUM CL 10MEQ/50ML IVPB 50 ML IV SCH ×3 (16:39→18:17)
--- NOTE | 2019-08-14 17:00 | NUR ---
SPOKE WITH THE PT AND HIS (HE HAD A MED LIST) WENT THRU THE EXT MED HISTORY AND CALLED NATALIE AND HIS MEDICARE D [facility] TO COMPLETE THE MED REC LEVETIRACETAM 500MG- DIRECTIONS SHOW 2 TABS AM AND 3 TABS HS HOWEVER DUE TO SEIZURES BEING NOT UNDER CONTROL HE TAKES 3 TABS BID PT HAS SPIRONOLACTONE 25MG, SIMVASTATIN 20MG AND OLMESARTAN 40MG LISTED ON THE MED LIST- I SPOKE WITH [facility] AND THEY HAVE NOT FILLED THEM SINCE THE FIRST OF THE YEAR. I WENT BACK AND SPOKE WITH THE PT AGAIN- HE INDICATED HE WAS "BACKED UP" ON HIS MEDICATIONS AND DIDNT NEED TO RE-ORDER THEM AND THAT IT HAD BEEN PROBABLY THE END OF LAST YEAR SINCE THEY WERE LAST REFILLED. I CALLED [facility] BACK TO GET 2019 DATES AND THEY DO NOT SHOW ANY OF THOSE MEDICATIONS BEING DISPENSED (THE CRIMINAL PROFILER DID SHOW SOME CLAIMS RUNNING THRU BUT THEN THEY WERE BACKED OUT AND NOT SENT TO THE PT). FOR THESE REASONS THOSE MEDICATIONS HAVE BEEN LEFT OFF THE MED REC PT GETS XOFIGO FROM ONCE MONTHLY BUMETANIDE 2MG- EXT MED HISTORY SHOWS 1 TAB BID HOWEVER THE PT JUST TAKES 1 DAILY OTC MEDS: ASPIRIN 325MG VIT C VIT D3 FISH OIL NAPROXEN CHLORPHENIRAMINE
--- NOTE | 2019-08-14 17:15 | NUR ---
CALLED DR. COURTNEY FOR PAIN MEDICATION FOR PT. ORDERS GIVEN TO RESTART HOME MED
--- NOTE | 2019-08-14 17:23 | History & Physical-Hospitalist ---
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 He stated that he did not feel that he had the strength to get back into the house and is required help with transferring from bed to wheelchair for the past several days. He is failed multiple forms of therapy for prostate cancer with an injection of iridium last week. He has noticed some increased low back pain since that time and was warned that it temporarily may exacerbate his metastatic related bone pain. He reports that his stools have been darker than usual and his who is a nurse feels that they may be melanotic. He denies abdominal pain and has no past history of known peptic ulcer disease or GI bleeding. He's noted no bright red blood per rectum. He's had no orthopnea or PND with stable pedal edema. Past medical history is also significant for right-sided CVA with left hemiparesis and chronic left venous stasis. He has bilateral lower extremity peripheral vascular disease history of hypertension and hyperlipidemia. He also has a history of coronary artery disease with mild impairment in systolic function estimated ejection fraction 45-50 percent with evidence for an old inferior apical UT. Date Seen 08/14/19 Time Seen by a Provider: 13:00 Attending Physician Mega Courtney MD PCP Mega Courtney MD Referring Physician Date of Admission Aug 14, 2019 at 14:22 Home Medications & Allergies Home Medications Reviewed patient Home Medication Reconciliation performed by pharmacy medication reconciliations air sealing technician and/or nursing. Patients Allergies have been reviewed. Allergies Allergies Coded Allergies lisinopril (Verified Allergy, Severe, tongue swelling, 07/25/17) Past Iwrxhcv-Bkestz-Annlhi Hx Past Med/Social Hx: Reviewed and Corrections made Patient Social History Alcohol Use: Occasionally Uses Number of Drinks Today: 0 Alcohol Beverage of Choice: Beer Recreational Drug Use: No Smoking Status: Former Smoker Former Smoker, Quit: Mar 13, 2007 Type Used: Cigarettes Physical Abuse Screen: No Sexual Abuse: No Recent Foreign Travel: No Contact w/other who traveled: No Recent Hopitalizations: No Recent Infectious Disease Expo: No Immunizations Up To Date Tetanus Booster (TDap): Unknown Pediatric: No Date of Pneumonia Vaccine: Aug 13, 2017 Seasonal Allergies Seasonal Allergies: Yes Past Medical History Surgeries: Abdominal, CABG Currently Using CPAP: No Currently Using BIPAP: No Cardiac: Cardiomyopathy, Coronary Artery Disease, Hypertension Sexually Transmitted Disease: No HIV/AIDS: No HEENT: Cataract Loss of Vision: Denies Hearing Impairment: Denies Cancer: Prostate Did You Recieve Any Treatments: Yes What Type of Treatment Did You: Other Cancer: PROSTATE SEEDING 2002 CURRENTLY ON TREATMENT WITH ZOFIGO History of Blood Disorders: No Adverse Reaction to Blood Rosa: No Family History Patient reports no known family medical history. Heart Disease, Cancer Review of Systems Constitutional: see HPI Physical Exam Physical Exam Vital Signs Vital Signs - First Documented 08/14/19 08/14/19 14:37 16:08 Temp 36.3 Pulse 120 Resp 22 B/P (MAP) 120/68 Pulse Ox 91 O2 Delivery Room Air Capillary Refill : Less Than 3 Seconds Height, Weight, BMI Height: 5'9.00" Weight: 228lbs. 0.0oz. [id number]; 33.19 BMI Method:Estimated General Appearance: Chronically ill, Mild Distress, Obese HEENT: Pale Conjunctivae (L), Pale Conjunctivae (R) Respiratory: Chest Non Tender, Lungs Clear, Normal Breath Sounds, No Accessory Muscle Use, No Respiratory Distress Cardiovascular: No Gallop, No JVD, No Murmur, Irregularly Irregular, Tachycardia Gastrointestinal: Normal Bowel Sounds, No Organomegaly, No Pulsatile Mass, Non Tender, Soft Rectal: Deferred Extremity: Other (Plus edema on the left a little less than usual for this patient's 1+ on the right into the upper tibia bilaterally extremities warm but no pulses apparent dorsalis pedis or posterior tibial locations palpation.) Skin: Pallor Results Results/Procedures Labs Laboratory Tests 08/14/19 14:55 Patient resulted labs reviewed. Assessment/Plan Admission Diagnosis 1. Multifactorial extreme weakness possible GI bleed was an initial concern from the history this is little less likely considering that his hemoglobin is stable. Is more likely a factor of progressing prostate cancer with dehydration and severe hypocalcemia and hypokalemia and hypomagnesemia. Electrolyte disturbances are likely due to ongoing diuretic therapy with poor by mouth intake and some intravascular volume depletion. IV fluids will be initiated with replacement of potassium and magnesium first followed by calcium with repeat electrolytes in the morning. 2. New onset atrial flutter with rapid ventricular response aggravated by dehydration we will replace volume with IV fluids first and hold diuretic therapy for now. Will likely need compression of the left lower extremity. 3. Contraindication to SCDs due to peripheral vascular disease and contraindication currently of anticoagulant therapy as her still concerned about we'll obtain stool for occult blood he's received one IV dose of pantoprazole will switch to by mouth pantoprazole in the morning. 4. Considering terminal prostate cancer and multi morbidity patient has requested DO NOT RESUSCITATE status will continue very conservative medical management. 5. 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
[2019-08-14] MEDS: HYDROcodone/APAP 5 MG/325 MG (LORTAB) TAB PO PRN (17:47)
[2019-08-14 19:22] VITALS: BP 115/68
[2019-08-14] MEDS: LEVETIRACETAM 500 MG/ 5 ML UDC ORAL SOLN (KEPPRA) PO SCH (19:40)
[2019-08-14] MEDS ORDERED: NS IV ONE (20:00)
[2019-08-14] MEDS ORDERED: CALCIUM GLUCONATE IV ONE (20:00)
[2019-08-14] MEDS: MAGNESIUM 1 GM/100 ML IVPB 100 ML IV SCH ×2 (21:13→22:25)
[2019-08-14] MEDS: D5 NS 1000 ML IV SOLUTION 1,000 ML IV SCH (23:54)
[2019-08-15 00:21] VITALS: BP 107/74
[2019-08-15 04:00] VITALS: BP 127/87
[2019-08-15] MEDS: HYDROcodone/APAP 5 MG/325 MG (LORTAB) TAB PO PRN ×4 (05:24→22:54)
[2019-08-15 06:48] LABS: CALCIUM 8.5 MG/DL (8.5-10.1); CREATININE SERUM 1.48 MG/DL (0.60-1.30); MAGNESIUM 2.4 MG/DL (1.6-2.4); POTASSIUM 4.3 MMOL/L (3.6-5.0)
[2019-08-15 08:00] VITALS: BP 127/93
[2019-08-15] MEDS: PANTOPRAZOLE 40 MG (PROTONIX) VIAL IV SCH (08:37)
[2019-08-15] MEDS: LEVETIRACETAM 500 MG/ 5 ML UDC ORAL SOLN (KEPPRA) PO SCH ×2 (08:37→21:16)
[2019-08-15 08:42] LABS: HEMOGLOBIN 11.2 G/DL (13.3-17.7); MEAN PLATELET VOLUME 9.5 FL (7.4-10.4); WHITE BLOOD COUNT 3.9 10^3/uL (4.3-11.0)
[2019-08-15 09:06] LABS: CALCIUM 8.5 MG/DL (8.5-10.1); CREATININE SERUM 1.55 MG/DL (0.60-1.30); POTASSIUM 4.5 MMOL/L (3.6-5.0)
[2019-08-15] MEDS: D5 NS 1000 ML IV SOLUTION 1,000 ML IV SCH (11:09)
--- NOTE | 2019-08-15 11:18 | NUR ---
"RD ASSESSMENT PMHx: CA([id number]); CVA; HLD; HTN; CAD; cardiomyopathy PT INTERACTION: Pt was awake and pleasant during nutrition assessment. Pt states current appetite is poor, and has been for some time. Nota avg PO intake 38% x2meal, per chart review. Pt states following a low-salt diet at home, and has no issues with chewing/swallowing food. Pt states some recent issues with nausea, but not with vomiting, constipation, or diarrhea. Note last BM was 6/3, and pt not currently on bowel regimen per chart review. Pt states some recent wt loss, but unsure of amount/timeframe. Note unable to determine recent wt hx, per chart review. ABNORMAL NUTRITION-RELATED LAB VALUES LOW: HIGH: Cl 108; BUN 43; cr 1.43; glu 121 Est. kcal needs: 6138-5003 kcal | 15-18 kcal/kg Est. Pro needs: 82-102 g Pro | 0.8-1.0 g Pro/kg PES STATEMENT: Inadequate oral intake (NI-2.1) related to loss of appetite | nausea as evidenced by pt interview | avg PO intake 38% x2meal INTERVENTION: Continue with current diet order of Regular diet. Add Ensure Enlive (vary) to meals TID, for increased kcal intake. Provides 350 kcal and 13 g Pro per serving. Will continue to follow and reassess as pt needs, intake, and status change. MONITOR/EVALUATE: PO Intake; Plan of Care; Hydration Status; Weight Status; Lab Values Kaz Camara, MS, RD, LD"
[2019-08-15 12:29] VITALS: BP 127/93
--- NOTE | 2019-08-15 12:39 | Progress Note - Hospitalist ---
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 He stated that he did not feel that he had the strength to get back into the house and is required help with transferring from bed to wheelchair for the past several days. He is failed multiple forms of therapy for prostate cancer with an injection of iridium last week. He has noticed some increased low back pain since that time and was warned that it temporarily may exacerbate his metastatic related bone pain. He reports that his stools have been darker than usual and his who is a nurse feels that they may be melanotic. He denies abdominal pain and has no past history of known peptic ulcer disease or GI bleeding. He's noted no bright red blood per rectum. He's had no orthopnea or PND with stable pedal edema. Past medical history is also significant for right-sided CVA with left hemiparesis and chronic left venous stasis. He has bilateral lower extremity peripheral vascular disease history of hypertension and hyperlipidemia. He also has a history of coronary artery disease with mild impairment in systolic func tion estimated ejection fraction 45-50 percent with evidence for an old inferior apical CT. Subjective/Events-last exam Pt reports feeling better today. Seems to be slightly confused about location though. Knows that he fell yesterday leading to his visit with Dr Angel and admission here. Objective Exam Vital Signs Vital Signs Date Time Temp Pulse Resp B/P (MAP) Pulse Ox O2 Delivery O2 Flow Rate FiO2 08/15/19 08:00 92 Room Air 08/15/19 08:00 35.3 101 20 127/93 (104) Capillary Refill : Less Than 3 SecondsLess Than 3 Seconds General Appearance: No Apparent Distress, WD/WN Respiratory: Lungs Clear, No Respiratory Distress Cardiovascular: Regular Rate, Rhythm, No Murmur Gastrointestinal: Normal Bowel Sounds, Non Tender, Soft Extremity: No Calf Tenderness, No Pedal Edema Neurologic/Psychiatric: Alert, Other (oriented to person and situation) Results/Procedures Lab Laboratory Tests 08/14/19 14:55 08/15/19 05:55 08/15/19 08:15 Patient resulted labs reviewed. Assessment/Plan Assessment and Plan Assess & Plan/Chief Complaint 1. Multifactorial extreme weakness- Hemoglobin up today with no blood products, will order PT/OT, continue IVF and avoid diuretic 2. ADDISON- Creatinine up some today, continue IVF, I question the accuracy of yesterday BMP given the profound difference and improvement today 3. New onset a-flutter, rate controlled 4. Contraindication to SCDs due to peripheral vascular disease and contraindication currently of anticoagulant therapy due to concern for GI bleed 4. Terminal prostate cancer- follows with [facility], palliative care consulted for pain management 5. 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
--- NOTE | 2019-08-15 14:27 | Physical Therapy Evaluation ---
PT Evaluation-General Medical Diagnosis Admission Date Aug 14, 2019 at 14:22 Medical Diagnosis: weakness/fall Onset Date: Aug 14, 2019 Therapy Diagnosis Therapy Diagnosis: debility/weakness Height/Weight Height (Feet): 5 Height (Inches): 9.00 Weight (Pounds): 228 Weight (Ounces): 0.0 Precautions Precautions/Isolations: Seizure, Fall Prevention, Standard Precautions Weight Bear Status Right Lower Extremity: Right Weight Bearing/Tolerated Left Lower Extremity: Left Weight Bearing/Tolerated Referral Physician: Anup Reason for Referral: Evaluation/Treatment Medical History Pertinent Medical History: CABG, CAD, CVA (left hemiparesis), HTN, [place], PVD Current History direct admit from physicians office secondary to falls (metastatic prostatic cancer to bone) Reviewed History: Yes Social History Home: Single Level Current Living Status: Spouse Prior Prior Level of Function SCALE: Activities may be completed with or without assistive devices. 9-Bwvambbzwb-lucvqkt completes the activity by him/herself with no assistance from a helper. 5-Set-up or Clean-up Assistance-helper sets up or cleans up; patient completes a ctivity. [place] assists only prior to or following the activity. 4-Supervision or Touching Assistance-helper provides verbal cues and/or touching/steadying and/or contact guard assistance as patient completes activity. Assistance may be provided throughout the activity or intermittently. 3-Partial/Moderate Assistance-helper does LESS THAN HALF the effort. [place] lifts, holds or supports trunk or limbs, but provides less than half the effort. 2-Substantial/Maximal Assistance-helper does MORE THAN HALF the effort. [place] lifts or holds trunk or limbs and provides more than half the effort. 3-Jtahatpro-mvdvhi does ALL the effort. Patient does none of the effort to complete the activity. Or, the assistance of 2 or more helpers is required for the patient to complete the activity. If activity was not attempted, code reason: 7-Patient Refused. 9-Not Applicable-not attempted and the patient did not perform the activity before the current illness, exacerbation or injury. 10-Not Attempted due to Environmental Limitations-(lack of equipment, weather restraints, etc.). 88-Not Attempted due to Medical Conditions or Safety Concerns. Bed Mobility: 5 Transfers (B,C,W/C): 5 Gait: 5 Indoor Mobility (Ambulation): Needed Some Help Prior Devices Use: Walker PT Evaluation-Current Subjective Patient is confused, however, very sweet. He reports he is afraid of falling but agrees to therapy. Pain Numeric Pain Scale: 5-Moderate Pain Location: Left Location Body Site: Hip Pain Description: Acute Comment: FLACC Objective Patient Orientation: Confused Attachments: IV ROM/Strength ROM Lower Extremities bilateral LE limited due to edema, however, functional for mobility Strength Lower Extremities right LE 3+/5 grossly/left LE 2/5 grossly Integumentary/Posture Integumentary refer to nursing notes Bladder Incontinence: Yes Posture WFL Neuromuscular (Tone, Coordination, Reflexes) diminished coordination due to old CVA Sensory Vision: Functional Hearing: Functional Sensation Right Lower Extremit: Intact Sensation Left Lower Extremity: Intact Transfers Roll Left to Right (QC): 1 Sit to Lying (QC): 1 Lying to Sitting/Side of Bed(Q: 1 dependent assist x 2 with all mobility Gait Does the Patient Walk?: No and Walking Goal IS indicated Mode of Locomotion: Both Anticipated Mode of Locomotion: Both Distance: 3 side steps Gait Assistive Device: FWW Comments/Gait Description PT dependent assist to advance left LE with sidestepping to left with OT addressing balance and upper body position with this task Balance Sitting Static: Fair Sitting Dynamic: Fair Standing Static: Fair Treatment PT and OT cotreat due to patient requiring the skills of 2 therapist to address needs. PT address lower body strength, sitting and standing balance and left LE advancement with sidestepping while OT address upper body placement with FWW and transfer. Assessment/Needs 78 y.o. male, will benefit from skilled PT to address functional strength and mobility to improve current LOF. Patient is limit with mobility due to weakness, fear of falling and left hip pain. PT consulted with physician on attaining left hip xray to r/o fracture. Physician agrees. Rehab Potential: Guarded PT Hospital Pharmacy Director Goals Long-Term Goals PT Long-Term Goals Time Frame: Aug 31, 2019 Roll Left & Right (QC): 4 Sit to Lying (QC): 4 Lying-Sitting on Side/Bed(QC): 4 Sit to Stand (QC): 4 Chair/Cst-xt-Dildx Xfer(QC): 4 Toilet Transfer (QC): 4 Does the Patient Walk: No and Walking Goal IS indicated Walk 10 feet (QC): 3 PT Plan Problem List Problem List: Activity Tolerance, Functional Strength, Safety, Balance, Gait, Transfer, Bed Mobility, ROM Treatment/Plan Treatment Plan: Continue Plan of Care Treatment Plan: Bed Mobility, Education, Functional Activity Kati, Functional Strength, Gait, Safety, Therapeutic Exercise, Transfers Treatment Duration: Aug 31, 2019 Frequency: 6 times per week Estimated Hrs Per Day: .25 hour per day Patient and/or Family Agrees t: Yes Discharge Recommendations Therapy Discharge Recommendati: Other, See Comments (penitentiary facility) Time/GCodes Time In: 1313 Time Out: 1335 Total Billed Treatment Time: 22 Total Billed Treatment 1 visit EVModC 22 min (cotreate with OT) ANDRES HORNER PT Aug 15, 2019 14:27
--- NOTE | 2019-08-15 14:37 | Occupational Therapy Eval ---
OT Evaluation-General/PLF Medical Diagnosis Admission Date Aug 14, 2019 at 14:22 Medical Diagnosis: Dehydration, A-fib Onset Date: Aug 14, 2019 Therapy Diagnosis Therapy Diagnosis: Weakness Height/Weight Height (Feet): 5 Height (Inches): 9.00 Weight (Pounds): 228 Weight (Ounces): 0.0 Precautions Precautions/Isolations: Seizure, Fall Prevention, Standard Precautions Weight Bear Status Weight Bearing Restriction: Weight Bearing/Tolerated Referral Physician: Anup Referral Reason: Activity Tolerance, Self Care, Evaluation/Treatment, Strengthening/ROM Medical History Pertinent Medical History: CABG, CAD, CVA (left hemiparesis), HTN, OR, PVD Additional Medical History PVD, Metastatic bone CA, Prostate CA Current History Pt. reports that he has multiple falls at home. Reviewed History: Yes Social History Home: Single Level Current Living Status: Spouse Entry Into Home: Stairs With Railing Steps Into Home: 3 ADL-Prior Level of Function SCALE: Activities may be completed with or without assistive devices. 5-Sragwjhqak-vtipjcg completes the activity by him/herself with no assistance from a helper. 5-Set-up or Clean-up Assistance-helper sets up or cleans up; patient completes activity. [place] assists only prior to or following the activity. 4-Supervision or Touching Assistance-helper provides verbal cues and/or touching/steadying and/or contact guard assistance as patient completes activity. Assistance may be provided throughout the activity or intermittently. 3-Partial/Moderate Assistance-helper does LESS THAN HALF the effort. [place] lifts, holds or supports trunk or limbs, but provides less than half the effort. 2-Substantial/Maximal Assistance-helper does MORE THAN HALF the effort. [place] lifts or holds trunk or limbs and provides more than half the effort. 4-Omhmvrmtn-zgydmg does ALL the effort. Patient does none of the effort to complete the activity. Or, the assistance of 2 or more helpers is required for the patient to complete the activity. If activity was not attempted, code reason: 7-Patient Refused. 9-Not Applicable-not attempted and the patient did not perform the activity before the current illness, exacerbation or injury. 10-Not Attempted due to Environmental Limitations-(lack of equipment, weather restraints, etc.). 88-Not Attempted due to Medical Conditions or Safety Concerns. ADL PLOF Comments Pt. reports that he has difficulty with ambulation and transfers due to CVA and left hemiparesis. Pt. reports that he does not ambulate at home, but gets around in his wheelchair. He transfers from surface to surface, but often has falls. Pt. states that his spouse assists him with all bathing/dressing. Self Care: Needed Some Help Functional Cognition: Unknown DME/Equipment Comments Pt. has walker and wheelchair. OT Current Status Subjective Pt. reports pain in left hip but does not report level. PT reports this. Appearance Pt. in bed. Agrees to work with therapy. Mental Status/Objective Patient Orientation: Person Attachments: IV, Oxygen Current Upper Extremity ROM Right- WFL Left- Limited at shoulder due to previous CVA. WFL in elbow and hand. ADL-Treatment On/Off Footwear (QC): 1 Toileting Hygiene (QC): 1 Other Treatments Therapy came into room and noted that pt. had been incontinent of urine in bed. OT/PT co-treated due to level of skilled assist needed. OT facilitated ADL skills while PT focused on transfers and mobility. Pt. required max assist supine-sit. OT changed pt's gown. Pt. encouraged to attempt to don socks, but is unable to. OT does this for him. Pt. is encouraged to stand at side of bed, so that linens can be changed. Pt. stands with max x 2, 3 different times. Pt. is encouraged to take steps to left toward HOB. Pt. unable to weight shift and move left LE on his own, and so PT facilitated this. Pt. did not have strength to stand very long, and became anxious. Pt. transferred sit-supine with max x 2, and bed mobility completed with dependent assist x 2. All needs met. Education OT Patient Education: Correct positioning, Modified ADL techniques, Progress toward Goal/Update tx plan, Purpose of tx/functional activities, Reviewed precautions, Rehab process, Transfer techniques Teaching Recipient: Patient Teaching Methods: Demonstration, Discussion Response to Teaching: Verbalize Understanding, Return Demonstration, Reinforcement Needed OT Short Term Goals Short Term Goals Time Frame: Aug 22, 2019 Eatin Oral hygiene: 4 Toileting hygiene: 3 Shower/bathe self: 3 Upper body dressin Lower body dressin Putting on/taking off footwear: 3 OT Longterm Goals Longterm Goals Time Frame: Aug 29, 2019 Eating (QC): 5 Oral Hygiene (QC): 4 Toileting Hygiene (QC): 4 Shower/Bathe Self (QC): 3 Upper Body Dressing (QC): 5 Lower Body Dressing (QC): 4 On/Off Footwear (QC): 4 Additional Goals: 1-Demonstrate ADL Tasks, 2-Verbalize Understanding, 3- ImproveStrength/Kati 1=Demonstrate adherence to instructed precautions during ADL tasks. 2=Patient will verbalize/demonstrate understanding of assistive devices/modifications for ADL. 3=Patient will improve strength/tolerance for activity to enable patient to perform ADL's. OT Education/Plan Problem List/Assessment Assessment: Decreased Activ Tolerance, Dependent Transfers, Impaired Bed Mobility, Impaired Funct Balance, Impaired I ADL's, Impaired Self-Care Skills, Restricted Funct UE ROM Discharge Recommendations Plan/Recommendations: Continue POC Therapy Discharge Recommendati: 24 Hour Supervision Treatment Plan/Plan of Care Treatment,Training & Education: Yes Patient would benefit from OT for education, treatment and training to promote independence in ADL's, mobility, safety and/or upper extremity function for ADL's. Plan of Care: ADL Retraining, Functional Mobility, UE Funct Exercise/Act Treatment Duration: Aug 29, 2019 Frequency: 5 times per week Estimated Hrs Per Day: .5 hour per day Agreement: Yes Rehab Potential: Guarded Time/GCodes Start Time: 13:13 Stop Time: 13:35 Total Time Billed (hr/min): 22 Billed Treatment Time 1, EVH Co-treatment with PT. Please see above note for designated roles. Untimed AURE Bolivar OT Aug 15, 2019 14:37
[2019-08-15 16:00] VITALS: BP 116/72
--- NOTE | 2019-08-15 16:14 | Diagnostic Imaging Report ---
INDICATION: Left hip pain status post fall. COMPARISON: CT dated 07/05/2019. FINDINGS: Single frontal radiographic view of the pelvis was obtained. Evaluation is suboptimal given lack of orthogonal view. There is also obscuration by overlying soft tissue. Scattered areas of sclerotic change to the osseous structures may also obscure nondisplaced hairline fracture. No acute displaced fracture is seen. Femoroacetabular joint space is maintained on this single frontal view. Radiation beads in the prostate bed are noted. There is also moderate calcified atherosclerosis. IMPRESSION: 1. No evidence of acute fracture or dislocation of the left hip, although with limitations as described above. 2. Diffuse osteoblastic disease. Please correlate with known metastasis. Dictated by: Dictated on workstation # [id number]
[2019-08-15 20:00] VITALS: BP 124/80
[2019-08-16 00:37] VITALS: BP 140/81
[2019-08-16 04:00] VITALS: BP 122/59
[2019-08-16] MEDS: D5 NS 1000 ML IV SOLUTION 1,000 ML IV SCH (04:52)
[2019-08-16 05:41] LABS: HEMOGLOBIN 11.1 G/DL (13.3-17.7); MEAN PLATELET VOLUME 10.2 FL (7.4-10.4); RED CELL DISTRIBUTION WIDTH 20.9 % (10.0-14.5); WHITE BLOOD COUNT 3.8 10^3/uL (4.3-11.0)
[2019-08-16 05:59] LABS: CALCIUM 7.8 MG/DL (8.5-10.1); CREATININE SERUM 2.4 MG/DL (0.60-1.30); POTASSIUM 5.8 MMOL/L (3.6-5.0)
[2019-08-16 08:00] VITALS: BP 112/80
[2019-08-16] MEDS: PANTOPRAZOLE 40 MG (PROTONIX) VIAL IV SCH (08:15)
[2019-08-16] MEDS: LEVETIRACETAM 500 MG/ 5 ML UDC ORAL SOLN (KEPPRA) PO SCH (08:15)
[2019-08-16] MEDS: HYDROcodone/APAP 5 MG/325 MG (LORTAB) TAB PO PRN ×2 (08:25→15:10)
[2019-08-16] MEDS ORDERED: BENZONATATE 100 MG (TESSALON) CAPSULE PO PRN (08:45)
--- NOTE | 2019-08-16 10:33 | NUR ---
PALLIATIVE CARE RN consult received on this patient who has a history terminal Prostate CA. On my arrival to room he is lying in bed with eyes closed. Easily awakens to verbal cues. Once awake he is able to answers questions. His responses are choppy as if he is SOB. He has expiratory wheeze and at the end of expiration he coughs. Upon auscultation he did have adventitious breath sounds. Abdomen is round, soft with distant bowel sounds. He reports having no pain at this time as they "just gave me a pill". Dis not discuss hospice with him at this time. He is receiving chemotherapy for his terminal Prostate CA.
[2019-08-16] MEDS ORDERED: FUROSEMIDE 40 MG/4 ML INJ (LASIX) IVP SCH (11:00)
[2019-08-16] MEDS ORDERED: meTOprolol TARTRATE 25 MG (LOPRESSOR) TABLET PO NR (11:00)
[2019-08-16] MEDS ORDERED: FUROSEMIDE 40 MG/4 ML INJ (LASIX) ONE (11:03)
--- NOTE | 2019-08-16 11:07 | NUR ---
This RN was able to tell Dr. Hebert about my assessment. She reviewed chart and has made adjustments to his medications and ordered an EKG. Spoke to his nurse and she indicated an need for increased O2 r/t 85% saturations. Went into room to tell RN and he was diaphoretic w increased SOB. Dr. Hebert into room to assess. Dr. Hebert calling now.
--- NOTE | 2019-08-16 11:15 | Occupational Ther Daily Note ---
OT Current Status-Daily Note Subjective Pt seen in bed asleep. pt easily wakes, states he "needs to cough." Pt educated on sitting/ benefits of upright position, pt desires to sit EOB, denies utilizing chair. Pt denies pain. Mental Status/Objective Patient Orientation: Normal For Age Attachments: IV, Oxygen ADL-Treatment Therapy Code Descriptions/Definitions Functional [place] Measure: 0=Not Assessed/NA 4=Minimal Assistance 1=Total Assistance 5=Supervision or Setup 2=Maximal Assistance 6=Modified [place] 3=Moderate Assistance 7=Complete IndependenceSCALE: Activities may be completed with or without assistive devices. 7-Byittwvrlh-adcqjvh completes the activity by him/herself with no assistance from a helper. 5-Set-up or Clean-up Assistance-helper sets up or cleans up; patient completes activity. [place] assists only prior to or following the activity. 4-Supervision or Touching Assistance-helper provides verbal cues and/or touching/steadying and/or contact guard assistance as patient completes activity. Assistance may be provided throughout the activity or intermittently. 3-Partial/Moderate Assistance-helper does LESS THAN HALF the effort. [place] lifts, holds or supports trunk or limbs, but provides less than half the effort. 2-Substantial/Maximal Assistance-helper does MORE THAN HALF the effort. [place] lifts or holds trunk or limbs and provides more than half the effort. 5-Jdksgcicd-njdfeb does ALL the effort. Patient does none of the effort to complete the activity. Or, the assistance of 2 or more helpers is required for the patient to complete the activity. If activity was not attempted, code reason: 7-Patient Refused. 9-Not Applicable-not attempted and the patient did not perform the activity before the current illness, exacerbation or injury. 10-Not Attempted due to Environmental Limitations-(lack of equipment, weather restraints, etc.). 88-Not Attempted due to Medical Conditions or Safety Concerns. Eating (QC): 5 (drink handed to pt.) Toileting Hygiene (QC): 1 (max A x1 for stance while OT wipes bottom with TD.) Other Treatment Pt brought EOB with max A to mobilize LLE and scoot bottom EOB. Pt denies utilizing chair, states wants to sit EOB. Pt sits EOB with chair to lean on to, maintains balance for ~2 min. Assist from PT required for clean-up for bottom and mobilizing to recliner, as pt agrees while EOB. Pt completes stance with max A x1. Two skilled therapists required at this time due to decreased standing tolerance, L side weakness, decreased strength/ endurance/ mobility, and increased anxiety and FOF. Pt stands once more to complete transfer to recliner placed on L side of pt. Pt's bottom cleaned with TD. Pt left with PT end of session with all needs met. Education OT Patient Education: Correct positioning, Progress toward Goal/Update tx plan, Purpose of tx/functional activities, Safety issues, Transfer techniques Teaching Recipient: Patient Teaching Methods: Demonstration, Discussion Response to Teaching: Verbalize Understanding, Return Demonstration OT Short Term Goals Short Term Goals Time Frame: Aug 22, 2019 Eatin Oral hygiene: 4 Toileting hygiene: 3 Shower/bathe self: 3 Upper body dressin Lower body dressin Putting on/taking off footwear: 3 OT Care Home Goals Radio Communication Coordinator Goals Time Frame: Aug 29, 2019 Eating (QC): 5 Oral Hygiene (QC): 4 Toileting Hygiene (QC): 4 Shower/Bathe Self (QC): 3 Upper Body Dressing (QC): 5 Lower Body Dressing (QC): 4 On/Off Footwear (QC): 4 Additional Goals: 1-Demonstrate ADL Tasks, 2-Verbalize Understanding, 3-Improve Strength/Kati 1=Demonstrate adherence to instructed precautions during ADL tasks. 2=Patient will verbalize/demonstrate understanding of assistive devices/modifications for ADL. 3=Patient will improve strength/tolerance for activity to enable patient to pe rform ADL's. OT Education/Plan Problem List/Assessment Assessment: Decreased Activ Tolerance, Decreased UE Strength, Dependent Transfers, Edema, Impaired Bed Mobility, Impaired Funct Balance, Impaired I ADL's, Impaired Self-Care Skills, Restricted Funct UE ROM Discharge Recommendations Plan/Recommendations: Continue POC Therapy Discharge Recommendati: Post Acute OT Treatment Plan/Plan of Care Treatment,Training & Education: Yes Patient would benefit from OT for education, treatment and training to promote independence in ADL's, mobility, safety and/or upper extremity function for ADL's. Plan of Care: ADL Retraining, Functional Mobility, UE Funct Exercise/Act Treatment Duration: Aug 29, 2019 Frequency: 5 times per week Estimated Hrs Per Day: .5 hour per day Agreement: Yes Rehab Potential: Guarded Time/GCodes Start Time: 09:42 Stop Time: 09:56 Total Time Billed (hr/min): 14 Billed Treatment Time 1, FA (14) IBIS ARREGUIN OTR Aug 16, 2019 11:15
--- NOTE | 2019-08-16 11:47 | Physical Therapy Daily Note ---
PT Daily Note-Current Subjective Pt was sitting edge of bed with OT assisting with personal hygiene. Pt requires additional steadying assistance from PT to safely remain seated. Chose to perform a co-treat with OT for a 10 minute overlap to allow OT time to complete their treatment with PT assisting with trunk stability. Mental Status Patient Orientation: Person, Place Attachments: Oxygen, IV Transfers SCALE: Activities may be completed with or without assistive devices. 3-Usefprmnaj-heilwec completes the activity by him/herself with no assistance from a helper. 5-Set-up or Clean-up Assistance-helper sets up or cleans up; patient completes activity. [place] assists only prior to or following the activity. 4-Supervision or Touching Assistance-helper provides verbal cues and/or touching/steadying and/or contact guard assistance as patient completes activity. Assistance may be provided throughout the activity or intermittently. 3-Partial/Moderate Assistance-helper does LESS THAN HALF the effort. [place] lifts, holds or supports trunk or limbs, but provides less than half the effort. 2-Substantial/Maximal Assistance-helper does MORE THAN HALF the effort. [place] lifts or holds trunk or limbs and provides more than half the effort. 8-Sbeenzqqz-mfoest does ALL the effort. Patient does none of the effort to complete the activity. Or, the assistance of 2 or more helpers is required for the patient to complete the activity. If activity was not attempted, code reason: 7-Patient Refused. 9-Not Applicable-not attempted and the patient did not perform the activity before the current illness, exacerbation or injury. 10-Not Attempted due to Environmental Limitations-(lack of equipment, weather restraints, etc.). 88-Not Attempted due to Medical Conditions or Safety Concerns. Roll Left & Right (QC): 1 Sit to Lying (QC): 1 Lying to Sitting/Side of Bed(Q: 1 Sit to Stand (QC): 1 Chair/Drv-pr-Ucxec Xfer(QC): 1 Toilet Transfer (QC): 1 Weight Bearing Right Lower Extremity: Right Weight Bearing/Tolerated Left Lower Extremity: Left Weight Bearing/Tolerated Gait Training Does the Patient Walk?: No and Walking Goal IS indicated Exercises Seated Therapy Exercises: LE Protocol Seated Reps: 20 Treatments Performed co-treat with OT to enable OT to continue with hygiene with PT providing assistance for sitting and transfer. Pt performed a toilet transfer and return to bed with total assist. Assessment Current Status: Poor Progress Pt became very short of breath during seated activity with oxygen saturation dropping between 85-88%. PT Tray Packer Goals Skilled Nursing Goals PT Skilled Nursing Goals Time Frame: Aug 31, 2019 Roll Left & Right (QC): 4 Sit to Lying (QC): 4 Lying-Sitting on Side/Bed(QC): 4 Sit to Stand (QC): 4 Chair/Hcq-qa-Mesvi Xfer(QC): 4 Toilet Transfer (QC): 4 Does the Patient Walk: No and Walking Goal IS indicated Walk 10 feet (QC): 3 PT Plan Treatment/Plan Treatment Plan: Continue Plan of Care Treatment Plan: Bed Mobility, Education, Functional Activity Kati, Functional Strength, Gait, Safety, Therapeutic Exercise, Transfers Treatment Duration: Aug 31, 2019 Frequency: 6 times per week Estimated Hrs Per Day: .25 hour per day Patient and/or Family Agrees t: Yes Time/GCodes Time In: 0943 Time Out: 1010 Total Billed Treatment Time: 27 Total Billed Treatment 1, ex 17, fa 10 (co-treat with OT during this time) MATT CORLEY PT Aug 16, 2019 11:47
[2019-08-16 12:21] VITALS: BP 164/80
--- NOTE | 2019-08-16 13:00 | Progress Note - Hospitalist ---
Subjective HPI/CC On Admission Date Seen by Provider: Aug 16, 2019 Time Seen by Provider: 12:55 The patient is a 78-year-old white male with prostate cancer widely metastatic to bone who presented to the office today having fallen several times over the past week reporting increased weakness. He stated that he did not feel that he had the strength to get back into the house and is required help with transferring from bed to wheelchair for the past several days. He is failed multiple forms of therapy for prostate cancer with an injection of iridium last week. He has noticed some increased low back pain since that time and was warned that it temporarily may exacerbate his metastatic related bone pain. He reports that his stools have been darker than usual and his who is a nurse feels that they may be melanotic. He denies abdominal pain and has no past history of known peptic ulcer disease or GI bleeding. He's noted no bright red blood per rectum. He's had no orthopnea or PND with stable pedal edema. Past medical history is also significant for right-sided CVA with left hemiparesis and chronic left venous stasis. He has bilateral lower extremity peripheral vascular disease history of hypertension and hyperlipidemia. 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 Subjective/Events-last exam Pt reports still not feeling well. More diaphoretic and appears SOB. Objective Exam Vital Signs Vital Signs Date Time Temp Pulse Resp B/P (MAP) Pulse Ox O2 Delivery O2 Flow Rate FiO2 08/16/19 12:21 35.8 130 20 164/80 (108) 95 Nasal Cannula 2.50 Capillary Refill : Less Than 3 SecondsLess Than 3 Seconds General Appearance: Chronically ill Respiratory: No Accessory Muscle Use, Wheezing Cardiovascular: No Murmur, Tachycardia Gastrointestinal: Normal Bowel Sounds, Non Tender, Soft Neurologic/Psychiatric: Alert, Oriented x3 Results/Procedures Lab Laboratory Tests 08/16/19 05:30 Patient resulted labs reviewed. Assessment/Plan Assessment and Plan Assess & Plan/Chief Complaint 1. Multifactorial extreme weakness- I am worried this is a cumulative process and is a result of the dying process. His creatinine has gone up and he seems fluid overloaded. I discussed this with him and his and they seem to understand. will try to make it in this afternoon. Will attempt lasix and controlling heart rate to see if it helps with symptom control. Patient states "if it's my time it's my time" and seems to understand severity of illness. 2. ADDISON- Creatinine up again, DC IVF as appears fluid overloaded, try lasix- informed that will try diuresis as he is symptomatic from fluid overload 3. New onset a-flutter, spoke with and history of a-fib years ago following CABG, will start metorpolol as is in sinus tach right 4. Contraindication to SCDs due to peripheral vascular disease and cont raindication currently of anticoagulant therapy due to concern for GI bleed 4. Terminal prostate cancer- follows with [facility], palliative care consulted 5. 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
--- NOTE | 2019-08-16 14:25 | NUR ---
Discussed continued plans with pt and .both agreeable that when medically appropriate they would like to pursue [facility]-Way home placement at [facility] where her received short-term Rehab in 2018. Pt very pleasant and complains of feeling very weak. Faxed evaluations to [facility] for their review.
--- NOTE | 2019-08-16 15:10 | NUR ---
patients present in room at this time. stated that patient is hurting and would like for him to receive a pain medication if time. patients breathing is shallow and patient is confused stating his shoes need off and there is a blanket on the floor. patient is currently not wearing shoes and there is no blanket on the floor. doctor aware of patient status at this time.
--- NOTE | 2019-08-16 15:20 | NUR ---
[employer] called this RN into patients room at this time. patient is pale, blue around the mouth and currently not breathing. we are unable to detect O2 levels at this time. Dr Hebert notified and she was able to detect a very faint heart beat. patient shortly after. confirmed by yogesh PANTOJA and Luis PANTOJA
--- NOTE | 2019-08-16 15:29 | Discharge Summary ---
Discharge Summary Date of Admission Aug 14, 2019 at 14:22 Date of Discharge Admission Diagnosis 1. Multifactorial extreme weakness possible GI bleed was an initial concern from the history this is little less likely considering that his hemoglobin is stable. Is more likely a factor of progressing prostate cancer with dehydration and severe hypocalcemia and hypokalemia and hypomagnesemia. Electrolyte disturbances are likely due to ongoing diuretic therapy with poor by mouth intake and some intravascular volume depletion. IV fluids will be initiated with replacement of potassium and magnesium first followed by calcium with repeat electrolytes in the morning. 2. New onset atrial flutter with rapid ventricular response aggravated by dehydration we will replace volume with IV fluids first and hold diuretic therapy for now. Will likely need compression of the left lower extremity. 3. Contraindication to SCDs due to peripheral vascular disease and contraindication currently of anticoagulant therapy as her still concerned about we'll obtain stool for occult blood he's received one IV dose of pantoprazole will switch to by mouth pantoprazole in the morning. 4. Considering terminal prostate cancer and multi morbidity patient has requested DO NOT RESUSCITATE status will continue very conservative medical management. 5. 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 Multifactorial extreme weakness- I am worried this is a cumulative process and is a result of the dying process. His creatinine has gone up and he seems fluid overloaded. I discussed this with him and his and they seem to understand. will try to make it in this afternoon. Will attempt lasix and controlling heart rate to see if it helps with symptom control. Patient states "if it's my time it's my time" and seems to understand severity of illness. 2. ADDISON- Creatinine up again, DC IVF as appears fluid overloaded, try lasix- informed that will try diuresis as he is symptomatic from fluid overload 3. New onset a-flutter, spoke with and history of a-fib years ago following CABG, will start metorpolol as is in sinus tach right 4. Contraindication to SCDs due to peripheral vascular disease and contraindication currently of anticoagulant therapy due to concern for GI bleed 4. Terminal prostate cancer- follows with [facility], palliative care consulted 5. 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
[2019-08-16] MEDS ORDERED: BUMETANIDE 1 MG/4 ML (BUMEX) VIAL IV SCH (15:30)
[2019-08-16] MEDS ORDERED: morphine (ROXINOL) 10 MG/0.5 ML oral conc 0.5 ML PO PRN (15:30)
--- NOTE | 2019-08-16 15:30 | NUR ---
PALLIATIVE CARE RN and Dr. Hebert called to room by patient's nurse with report that he "stopped breathing", Dr. Hebert had just hung up with patient's PCP. Arrived to room and patient was having "fish out of water respirations", he was waxy in appearance and mottled on his knees. Patient's is in [place] and we spoke to her about patient being near . When the and I returned to the patient's he was found with out respirations and heart beat. Due to being DNR we made no effort to revive him. Dr. Hebert notified of time of being 1502. Addendum: 08/16/19 at 1550 by BONI LOFTON RN Clock on wall is inaccurate..time of at 1520 not 1502.
[2019-08-16] MEDS ORDERED: meTOprolol TARTRATE 25 MG (LOPRESSOR) TABLET PO SCH (21:00)
[2019-08-17] MEDS ORDERED: FUROSEMIDE 40 MG/4 ML INJ (LASIX) IVP SCH (09:00)
== END 2019-08-16 17:10 | disposition expired | DRG 723 ==
LOC: 4TH 14:22
PROVIDERS: ADMIT Internal Medicine; ATTEND Internal Medicine
DX: C61 Malignant neoplasm of prostate (principal); C79.51 Secondary malignant neoplasm of bone; I42.9 Cardiomyopathy, unspecified; N17.9 Acute kidney failure, unspecified; I48.92 Unspecified atrial flutter; I69.952 Hemiplegia and hemiparesis following unspecified cerebrovascular disease affecting left dominant side; E86.0 Dehydration; Z66 Do not resuscitate; E83.51 Hypocalcemia; E87.6 Hypokalemia; E83.42 Hypomagnesemia; R53.1 Weakness; J30.2 Other seasonal allergic rhinitis; I25.10 Atherosclerotic heart disease of native coronary artery without angina pectoris; R29.6 Repeated falls; I25.2 Old myocardial infarction; I69.898 Other sequelae of other cerebrovascular disease; G40.909 Epilepsy, unspecified, not intractable, without status epilepticus; I87.8 Other specified disorders of veins; I73.9 Peripheral vascular disease, unspecified; I10 Essential (primary) hypertension; E78.5 Hyperlipidemia, unspecified; Z87.891 Personal history of nicotine dependence; Z95.5 Presence of coronary angioplasty implant and graft; Z95.1 Presence of aortocoronary bypass graft
CPT/HCPCS: 36415; 73501; 80048; 80053; 82962; 83735; 85025; 85027; 86850; 86900; 86901; 93005